=== PATIENT | male | born 1955 | race Caucasian/White ===

== ENCOUNTER 2016-10-19 19:42 | Inpatient (IN) | payer MEDICARE, OTHER ==
[2016-10-19] VITALS (7 sets, daily range): BP systolic 115–139; BP diastolic 58–76; PULSE 48–69; RESP 18; TEMP 99; O2SAT 91–94
[~2016-10-19] VITALS: Ht 175.3 cm; Wt 83.1 kg
[~2016-10-19 19:42] MED LIST: OXYC40TA20 PO
[2016-10-19] MEDS ORDERED: SPIR25TA PO (19:58)
[2016-10-19] MEDS ORDERED: PROP10TA6 PO (19:58)
[2016-10-19] MEDS ORDERED: PROP60CA PO (19:58)
[2016-10-19] MEDS ORDERED: OXYC-406 PO (19:58)
[2016-10-19] MEDS ORDERED: PANTOPRAZOLE SODIUM 40 MG VIAL IVP ONE (20:30)
[2016-10-19] MEDS ORDERED: SODIUM CHLORIDE 0.9% FLUSH 5 ML FLUSH IVF PRN ×2 (20:30→22:00)
[2016-10-19] MEDS ORDERED: ONDANSETRON HCL 4 MG/2 ML VIAL IVP ONE (20:30)
--- NOTE | 2016-10-19 20:34 | PD ---
HPI Chief Complaint: Bleeding Time Seen by Provider: 20:27 Travel History International Travel<30 days: No Contact w/Intl Traveler<30days: No Traveled to known affect area: No History of Present Illness HPI 60-year-old male presents to the emergency department for complaint of blood on his shirt and possibly due to vomiting blood. According the patient he has history of esophageal varices with previous banding. Patient also has history of cirrhosis. Patient continues to smoke cigarettes history of COPD and continues to drink alcohol. Patient states he drank 2 beers today. Patient also has chronic low back pain for which she takes oxycodone. Patient states he 's continued take pain medication as prescribed. Patient states that he was sleeping and awakened with blood on his shirt. Patient denies nosebleed or dental pain or mouth bleeding and does not recall vomiting. Patient has had no hemoptysis. Patient denies coughing. Patient denies shortness of breath. Patient's had no fever chills. Patient states earlier today he was having epigastric abdominal pain that resolved and then noted pain upon awakening with blood on his shirt. Patient denies any black or tarry stools. Patient received significant [place] but has recently moved here permanently and has not yet established with a primary care belly roller. Patient has been seen once by primary care provider but states that he did not tolerate the pain medication that was prescribed for him reportedly. Patient denies any surgical procedures other than previous variceal banding and has had paracentesis for ascites in the remote past. Patient also has history of hypertension. Patient denies history of heart disease and is not diabetic reportedly. Patient's had no near-syncope or syncope dizziness or generalized weakness. Patient rates current discomfort 0/10 in intensity. PFSH Past Medical History Narrative Medical Positive tobacco use positive alcohol use Arthritis chronic low back pain hypertension COPD cirrhosis esophageal varices GI bleed esophageal banding ascites paracentesis EGD tonsillectomy; nursing notes reviewed Arthritis: Yes (LING LOWER EXT) Asthma: No Autoimmune Disease: No Blood Disorders: No Anxiety: No Depression: No Heart Rhythm Problems: No Cancer: No Cardiovascular Problems: Yes (pains) High Cholesterol: No Chemotherapy: No Chest Pain: No Congestive Heart Failure: No Cirrhosis: Yes COPD: Yes Cerebrovascular Accident: No Diabetes: No Diminished Hearing: Yes Endocrine: No Gastrointestinal Disorders: Yes GERD: Yes Glaucoma: No Genitourinary: No Headaches: No Hepatitis: No Hiatal Hernia: No Hypertension: Yes Immune Disorder: No Kidney Stones: No Musculoskeletal: Yes (BACK AND NECK PROBLEMS) Neurologic: No Psychiatric: No Reproductive: No Respiratory: Yes (PT IS A SMOKER) Migraines: No Myocardial Infarction: No Radiation Therapy: No Renal Failure: No Seizures: No Sickle Cell Disease: No Sleep Apnea: No Thyroid Disease: No Ulcer: No Past Surgical History Abdominal Surgery: No AICD: No Appendectomy: No Arteriovenous Shunt: No Cardiac Surgery: No Cholecystectomy: No Ear Surgery: No Endocrine Surgery: No Eye Surgery: No Genitourinary Surgery: No Gynecologic Surgery: No Insulin Pump: No Joint Replacement: No Oral Surgery: No Pacemaker: No Thoracic Surgery: Yes (banding of esophagus 3 years ago) Tonsillectomy: Yes Other Surgery: Yes Social History Alcohol Use: Yes (DAILY 3-4 BEERS) Tobacco Use: Yes (1/2PPD) Substance Use: No Allergies-Medications (Allergen,Severity, Reaction): Coded Allergies: No Known Allergies (Verified , 10/19/16) Reported Meds & Prescriptions Reported Meds & Active Scripts Active Reported Propranolol ER 24 HR (Propranolol HCl) 60 Mg Cap 60 Mg PO DAILY Spironolactone 25 Mg Tab 25 Mg PO DAILY Oxycodone ER (Oxycodone HCl) 40 Mg Tab 40 Mg PO Q12HR Review of Systems Except as stated in HPI: all other systems reviewed are Neg General / Constitutional: No: Fever, Chills Eyes: No: Visual changes HENT: No: Headaches, Vertigo, Lightheadedness Cardiovascular: No: Chest Pain or Discomfort Respiratory: No: Cough, Shortness of Breath, Wheezing, Hemoptysis Gastrointestinal: Positive: Vomiting, Abdominal Pain, Hematemesis, No: Nausea , Hematochezia Genitourinary: No: Dysuria Musculoskeletal: No: Myalgias, Arthralgias Skin: No Rash Neurologic: No: Weakness, Dizziness Psychiatric: No: Anxiety Hematologic/Lymphatic: No: Lymph Node Enlargement Physical Exam Narrative GENERAL: Well developed well nourished male in no acute distress no respiratory distress SKIN: Warm and dry. HEAD: Normocephalic. EYES: No scleral icterus. No injection or drainage. ENT: No dried blood or active bleeding from the nares or in the mouth or posterior pharynx. NECK: Supple, trachea midline. No JVD or lymphadenopathy. CARDIOVASCULAR: Regular rate and rhythm without murmurs, gallops, or rubs. RESPIRATORY: Breath sounds equal bilaterally. No accessory muscle use. GASTROINTESTINAL: Abdomen soft, mild epigastric tenderness to direct palpation without guarding or rebound, nondistended. MUSCULOSKELETAL: No cyanosis, or edema. BACK: Nontender without obvious deformity. No CVA tenderness. Data Data Last Documented VS Vital Signs Date Time Temp Pulse Resp B/P Pulse Ox O2 Delivery O2 Flow Rate FiO2 10/19/16 21:30 58 18 122/64 65 18 118/68 71 18 115/58 10/19/16 21:15 94 Room Air 10/19/16 19:53 99.0 Orders Complete Blood Count With Diff (10/19/16 20:26) Comprehensive Metabolic Panel (10/19/16 20:26) Lipase (10/19/16 20:26) Ammonia (10/19/16 20:26) Prothrombin Time / Inr (Pt) (10/19/16 20:26) Act Partial Throm Time (Ptt) (10/19/16 20:26) Alcohol (Ethanol) (10/19/16 20:26) Urinalysis - C+S If Indicated (10/19/16 20:26) Type And Screen (10/19/16 20:26) Ecg Monitoring (10/19/16 20:26) Iv Access Insert/Monitor (10/19/16 20:26) Orthostatic Vital Signs (10/19/16 20:26) Oximetry (10/19/16 20:26) Ondansetron Inj (Zofran Inj) (10/19/16 20:30) Pantoprazole Inj (Protonix Inj) (10/19/16 20:30) Sodium Chloride 0.9% Flush (Ns Flush) (10/19/16 20:30) Drug Screen, Random Urine (10/19/16 20:26) Chest, Single Ap (10/19/16 ) Lactulose Liq (Lactulose Liq) (10/19/16 22:00) Magnesium (Mg) (10/19/16 20:31) Admit Order (Ed Use Only) (10/19/16 ) ^ Saline Lock (10/19/16 21:54) Resp Oxygen Bob C Titrat 1-4 L (10/19/16 ) ^ Notify Dr: Other (10/19/16 21:54) Sodium Chloride 0.9% Flush (Ns Flush) (10/20/16 09:00) Sodium Chloride 0.9% Flush (Ns Flush) (10/19/16 22:00) Pantoprazole Inj (Protonix Inj) (10/19/16 22:00) Pantoprazole Inj (Protonix Inj) (10/19/16 22:00) Labs Laboratory Tests Test 10/19/16 10/19/16 20:30 20:31 Urine Color STRAW Urine Turbidity CLEAR Urine pH 6.0 Urine Specific [place] 1.005 Urine Protein NEG mg/dL Urine Glucose (UA) NEG mg/dL Urine Ketones NEG mg/dL Urine Occult Blood SMALL Urine Nitrite NEG Urine Bilirubin NEG Urine Leukocyte Esterase NEG Urine RBC 0-3 /hpf Urine Squamous Epithelial 0-2 /hpf Cells Microscopic Urinalysis Comment CULT NOT INDICATED Urine Opiates Screen NEG Urine Barbiturates Screen NEG Urine Amphetamines Screen NEG Urine Benzodiazepines Screen NEG Urine Cocaine Screen NEG Urine Cannabinoids Screen NEG White Blood Count 5.0 TH/MM3 Red Blood Count 4.50 MIL/MM3 Hemoglobin 12.6 GM/DL Hematocrit 38.0 % Mean Corpuscular Volume 84.6 FL Mean Corpuscular Hemoglobin 28.1 PG Mean Corpuscular Hemoglobin 33.3 % Concent Red Cell Distribution Width 17.4 % Platelet Count 81 TH/MM3 Mean Platelet Volume 8.7 FL Neutrophils (%) (Auto) 45.7 % Lymphocytes (%) (Auto) 36.5 % Monocytes (%) (Auto) 14.9 % Eosinophils (%) (Auto) 1.7 % Basophils (%) (Auto) 1.2 % Neutrophils # (Auto) 2.3 TH/MM3 Lymphocytes # (Auto) 1.8 TH/MM3 Monocytes # (Auto) 0.7 TH/MM3 Eosinophils # (Auto) 0.1 TH/MM3 Basophils # (Auto) 0.1 TH/MM3 CBC Comment AUTO DIFF Differential Comment AUTO DIFF CONFIRMED Platelet Estimate LOW Platelet Morphology Comment NORMAL Target Cells 1+ Prothrombin Time 14.1 SEC Prothromb Time International 1.3 RATIO Ratio Activated Partial 31.0 SEC Thromboplast Time Sodium Level 141 MEQ/L Potassium Level 4.1 MEQ/L Chloride Level 106 MEQ/L Carbon Dioxide Level 27.1 MEQ/L Anion Gap 8 MEQ/L Blood Urea Nitrogen 5 MG/DL Creatinine 0.47 MG/DL Estimat Glomerular Filtration 182 ML/MIN Rate Random Glucose 92 MG/DL Calcium Level 9.2 MG/DL Magnesium Level 1.7 MG/DL Total Bilirubin 1.0 MG/DL Aspartate Amino Transf 38 U/L (AST/SGOT) Alanine Aminotransferase 24 U/L (ALT/SGPT) Alkaline Phosphatase 221 U/L Ammonia 114 MCMOL/L Total Protein 7.1 GM/DL Albumin 2.9 GM/DL Lipase 117 U/L Ethyl Alcohol Level 44 MG/DL Blood Type A NEGATIVE Antibody Screen NEGATIVE Blood Bank Comment MDM Medical Decision Making Medical Screen Exam Complete: Yes Emergency Medical Condition: Yes Medical Record Reviewed: Yes Interpretation(s) cbc: hemoglobin 12.6; normal range platelet count cmp: elevated alk phos ammonia: 114, elevated coags: prolonged alcohol: 44 Differential Diagnosis Upper GI bleed/esophageal varices, gastritis, peptic ulcer disease, also to consider epistaxis, coagulopathy, hemoptysis, oral trauma; alcohol ingestion Narrative Course Patient placed on cardiac technician IV access obtained specimens collected and sent for resulting; orthostatic measurements obtained; patient administered Protonix 40 mg IV. No significant blood pressure heart rate deterioration when measured supine to sitting to standing and patient asymptomatic with maneuvers from lying sitting to standing. Patient's hemoglobin is stable rectal exam is negative for blood patient has not been tachycardic although is on a beta cristopher for blood pressure management. Patient is noted to have elevated ammonia and states he has not been on lactulose in the past. Is aware his alcohol level is 44 Patient is aware of plan for admission in view of presenting with blood on clothing without injury and prior history of variceal bleed also elevated serum ammonia Patient is agreeable to stay for admission Procedures EKG Prior to Arrival: No EKG Not Completed: EKG Not Medically Necessary [facility] Point of Care Internal Pos. & Neg. Controls: Passed Fecal Specimen Occult Blood: Negative Physician Communication Physician Communication GI Bleed; h/o esophageal varices discussed with Dr Hearn --requests patient to be transferred as admission to his service to [facility]; discussed with on-call GI Diagnosis Primary Impression: GI bleed Additional Impressions: Esophageal varices in cirrhosis Hyperammonemia Cirrhosis Admitting Information Admitting Physician Requests: Admit Vannesa Golden MD Oct 19, 2016 20:34 Vannesa Golden MD Oct 19, 2016 20:34
[2016-10-19 20:51] LABS: AUTOMATED NEUTROPHIL # 2.3 TH/MM3 (1.8-7.7); BASOPHIL # 0.1 TH/MM3 (0-0.2); BASOPHIL % 1.2 % (0.0-2.0); EOSINOPHIL # 0.1 TH/MM3 (0-0.4); EOSINOPHIL % 1.7 % (0.0-4.0); LYMPH % 36.5 % (9.0-44.0); LYMPHOCYTE # 1.8 TH/MM3 (1.0-4.8); MEAN CELL VOLUME 84.6 FL (80.0-100.0); MEAN CORPUSCULAR HEMOGLOBIN 28.1 PG (27.0-34.0); MEAN CORPUSCULAR HGB CONC 33.3 % (32.0-36.0); MONO % 14.9 % (0.0-8.0); NEUT % 45.7 % (16.0-70.0); PLATELET COUNT 81 TH/MM3 (150-450); RED CELL DISTRIBUTION WIDTH 17.4 % (11.6-17.2)
[2016-10-19 21:01] LABS: AMPHETAMINE, URINE NEG (NEG); BARBITURATES, URINE NEG (NEG); COCAINE, URINE NEG (NEG)
[2016-10-19 21:02] LABS: HEMO FLAGS AUTO DIFF
[2016-10-19 21:03] LABS: CHLORIDE 106 MEQ/L (98-107); POTASSIUM 4.1 MEQ/L (3.5-5.1); SODIUM (NA) 141 MEQ/L (136-145)
[2016-10-19 21:03] LABS: BLOOD, URINE SMALL (NEG); GLUCOSE,URINE NEG (NEG); KETONE, URINE NEG (NEG); NITRITE,URINE NEG (NEG)
[2016-10-19 21:07] LABS: ANION GAP 8 MEQ/L (5-15); BICARBONATE 27.1 MEQ/L (21.0-32.0); BLOOD UREA NITROGEN 5 MG/DL (7-18)
[2016-10-19 21:10] LABS: ALT (GPT) 24 U/L (12-78); AST (GOT) 38 U/L (15-37); GLOMERULAR FILTRATION RATE 182 ML/MIN (>89); INTERNATIONAL NORMALIZED RATIO 1.3 RATIO; PROTHROMBIN TIME - PATIENT 14.1 SEC (9.8-11.6)
[2016-10-19 21:13] LABS: ALKALINE PHOSPHATASE 221 U/L (45-117)
[2016-10-19 21:16] LABS: URINE COLOR STRAW (YELLW/STRAW)
[2016-10-19 21:17] LABS: COMMENT (UR) CULT NOT INDICATED; CULTURE IF INDICATED CULT NOT INDICATED; RBC, URINE 0-3 /hpf (0-3); SQUAMOUS EPITHELIAL CELL URINE 0-2 /hpf (0-5)
[2016-10-19 21:25] LABS: PLATELET ESTIMATE SMEAR LOW (NORMAL); PLATELET MORPHOLOGY NORMAL (NORMAL); SCAN/DIFF AUTO DIFF CONFIRMED; TARGET CELLS 1+ (NORMAL)
[2016-10-19 21:55] LABS: MAGNESIUM 1.7 MG/DL (1.5-2.5)
[2016-10-19] MEDS ORDERED: LACTULOSE SYRUP 20 GM/30 ML CUP PO ONE (22:00)
[2016-10-19] MEDS ORDERED: PANTOPRAZOLE SODIUM 40 MG VIAL IV PUSH ONE (22:00)
--- NOTE | 2016-10-19 22:04 | RADHPO ---
EXAM DATE/TIME: 10/19/2016 21:41 [facility] COMPARISON: CHEST SINGLE AP, December 08, 2015, 19:07. INDICATIONS : Vomiting. Hemoptysis. MEDICAL HISTORY : None. SURGICAL HISTORY : None. ENCOUNTER: Initial ACUITY: 1 day PAIN SCORE: 0/10 LOCATION: Bilateral chest FINDINGS: A single view of the chest demonstrates the lungs to be symmetrically aerated without evidence of mas s, infiltrate or effusion. The cardiomediastinal contours are unremarkable. Osseous structures are intact. CONCLUSION: Negative for an acute process. Rene Duke MD FACR on October 19, 2016 at 22:02 Board Certified Radiologist. This report was verified electronically.
[2016-10-19] MEDS ORDERED: NALOXONE HCL 0.4 MG/ML AMP IV PRN (22:45)
[2016-10-19] MEDS ORDERED: SODIUM CHLORIDE 0.9% FLUSH 5 ML FLUSH FLUSH PRN (22:45)
[2016-10-19] MEDS ORDERED: ONDANSETRON HCL 4 MG/2 ML VIAL IVP PRN (22:45)
[2016-10-19] MEDS: PANTOPRAZOLE INJ 80 MG in SODIUM CHLORIDE 0.9% INJ 100 ML IV SCH (22:51)
[2016-10-19] MEDS ORDERED: oxyCODONE HCL 40 MG CONTROLLED RELEASE TAB PO ONE (23:15)
[2016-10-19] MEDS ORDERED: THIAMINE INJ 100 MG in SODIUM CHLORIDE 0.9% INJ 100 ML IV ONE (23:15)
[2016-10-20] VITALS (10 sets, daily range): BP systolic 103–154; BP diastolic 46–90; PULSE 48–74; RESP 16–18; TEMP 96.5–98.7; O2SAT 91–96
[2016-10-20] MEDS ORDERED: SODIUM CHLORIDE 0.9% FLUSH 5 ML FLUSH IVF SCH (09:00)
[2016-10-20] MEDS: SODIUM CHLORIDE 0.9% FLUSH 5 ML FLUSH FLUSH SCH ×2 (09:20→20:36)
[2016-10-20] MEDS: PANTOPRAZOLE INJ 80 MG in SODIUM CHLORIDE 0.9% INJ 100 ML IV SCH ×2 (09:20→17:28)
[2016-10-20] MEDS: oxyCODONE HCL 40 MG CONTROLLED RELEASE TAB PO SCH ×2 (09:21→20:36)
[2016-10-20] MEDS: SPIRONOLACTONE 25 MG TAB PO SCH (09:21)
[2016-10-20] MEDS: PROPRANOLOL HCL LA 60 MG CAP PO SCH (09:21)
[2016-10-20 11:04] LABS: BASOPHIL % 1.2 % (0.0-2.0); EOSINOPHIL # 0.1 TH/MM3 (0-0.4); EOSINOPHIL % 2.1 % (0.0-4.0); HEMATOCRIT 37.8 % (39.0-51.0); LYMPH % 31.5 % (9.0-44.0); LYMPHOCYTE # 1.3 TH/MM3 (1.0-4.8); MEAN CELL VOLUME 85.4 FL (80.0-100.0); MEAN CORPUSCULAR HEMOGLOBIN 27.6 PG (27.0-34.0); MEAN CORPUSCULAR HGB CONC 32.3 % (32.0-36.0); MONO % 16.3 % (0.0-8.0); NEUT % 48.9 % (16.0-70.0); PLATELET COUNT 75 TH/MM3 (150-450); RED BLOOD COUNT 4.42 MIL/MM3 (4.50-5.90); WHITE BLOOD COUNT 4.1 TH/MM3 (4.0-11.0)
[2016-10-20 11:08] LABS: HEMO FLAGS AUTO DIFF
[2016-10-20 11:32] LABS: ALKALINE PHOSPHATASE 189 U/L (45-117); ALT (GPT) 22 U/L (12-78); ANION GAP 6 MEQ/L (5-15); AST (GOT) 32 U/L (15-37); BICARBONATE 27.9 MEQ/L (21.0-32.0); BLOOD UREA NITROGEN 7 MG/DL (7-18); CHLORIDE 106 MEQ/L (98-107); GLOMERULAR FILTRATION RATE 174 ML/MIN (>89); POTASSIUM 4.3 MEQ/L (3.5-5.1); SODIUM (NA) 140 MEQ/L (136-145); TOTAL BILIRUBIN ADULT 1.3 MG/DL (0.2-1.0)
[2016-10-20 11:36] LABS: PLATELET ESTIMATE SMEAR LOW (NORMAL); PLATELET MORPHOLOGY NORMAL (NORMAL); SCAN/DIFF AUTO DIFF CONFIRMED; TARGET CELLS 1+ (NORMAL)
--- NOTE | 2016-10-20 13:57 | HHI.HP ---
History of Present Illness Primary Care Physician Molina Hearn, DO Admission Diagnosis GI Bleed, h/o esophageal varices; elevated ammonia; alcohol use Diagnoses: History of Present Illness pt woke up with a large blood stain on his sheets he was unable to find any obvious external source he had previously been banded for esophageal varices in [facility] Review of Systems Gastrointestinal: COMPLAINS OF: Abdominal pain Past Family Social History Allergies: Coded Allergies: No Known Allergies (Verified , 10/19/16) Past Medical History esophageal varicies history of previous hemoptysis Past Surgical History varices banding x2 Reported Medications Current Medications Medications (Trade) Dose Ordered Sig/Felix Route PRN Reason Start Time Stop Time Status Last Admin Dose Admin Pantoprazole Sodium/Sodium Chloride (Protonix Inj/NS Inj) 100 ml @ 10 mls/hr Q10H IV 10/19/16 22:00 10/20/16 09:20 Oxycodone HCl (OxyCONTIN CR) 40 mg Q12HR PO 10/20/16 09:00 10/20/16 09:21 Propranolol HCl (Inderal La) 60 mg DAILY PO 10/20/16 09:00 10/20/16 09:21 Spironolactone (Aldactone) 25 mg DAILY PO 10/20/16 09:00 10/20/16 09:21 IV Flush (NS Flush) 2 ml UNSCH PRN FLUSH FLUSH AFTER USING IV ACCESS 10/19/16 22:45 IV Flush (NS Flush) 2 ml BID FLUSH 10/20/16 09:00 10/20/16 09:20 Ondansetron HCl (Zofran Inj) 4 mg Q6H PRN IVP NAUSEA OR VOMITING 10/19/16 22:45 Naloxone HCl (Narcan Inj) 0.4 mg UNSCH PRN IV SEE LABEL COMMENTS 10/19/16 22:45 Active Ordered Medications Current Medications Medications (Trade) Dose Ordered Sig/Felix Route PRN Reason Start Time Stop Time Status Last Admin Dose Admin Pantoprazole Sodium/Sodium Chloride (Protonix Inj/NS Inj) 100 ml @ 10 mls/hr Q10H IV 10/19/16 22:00 10/20/16 09:20 Oxycodone HCl (OxyCONTIN CR) 40 mg Q12HR PO 10/20/16 09:00 10/20/16 09:21 Propranolol HCl (Inderal La) 60 mg DAILY PO 10/20/16 09:00 10/20/16 09:21 Spironolactone (Aldactone) 25 mg DAILY PO 10/20/16 09:00 10/20/16 09:21 IV Flush (NS Flush) 2 ml UNSCH PRN FLUSH FLUSH AFTER USING IV ACCESS 10/19/16 22:45 IV Flush (NS Flush) 2 ml BID FLUSH 10/20/16 09:00 10/20/16 09:20 Ondansetron HCl (Zofran Inj) 4 mg Q6H PRN IVP NAUSEA OR VOMITING 10/19/16 22:45 Naloxone HCl (Narcan Inj) 0.4 mg UNSCH PRN IV SEE LABEL COMMENTS 10/19/16 22:45 Family History father with heart disease mother is alive and well Social History smokes 1 ppd for over 20 years daily drinker Physical Exam Vital Signs GENERAL: SKIN: Warm and dry. HEAD: Atraumatic. Normocephalic. EYES: Pupils equal and round. No scleral icterus. No injection or drainage. ENT: No nasal bleeding or discharge. Mucous membranes pink and moist. NECK: Trachea midline. No JVD. CARDIOVASCULAR: Regular rate and rhythm. RESPIRATORY: No accessory muscle use. Clear to auscultation. Breath sounds equal bilaterally. GASTROINTESTINAL: Abdomen soft, epigastric tenderness present minimally distended. Hepatic and splenic margins not palpable. MUSCULOSKELETAL: Extremities without clubbing, cyanosis, or edema. No obvious deformities. NEUROLOGICAL: Awake and alert. No obvious cranial nerve deficits. Motor grossly within normal limits. Five out of 5 muscle strength in the arms and legs. Normal speech. PSYCHIATRIC: Appropriate mood and affect; insight and judgment normal. Vital Signs Date Time Temp Pulse Resp B/P Pulse Ox O2 Delivery O2 Flow Rate FiO2 10/20/16 12:00 97.3 74 17 136/62 95 10/20/16 09:38 93 Nasal Cannula 4.00 10/20/16 08:00 97.1 56 17 115/46 91 10/20/16 04:01 50 10/20/16 03:15 96.5 62 18 154/75 93 10/20/16 02:00 48 16 114/68 92 Room Air 10/20/16 01:19 16 10/20/16 01:00 52 16 103/59 92 Room Air 10/19/16 23:55 48 18 137/68 91 Room Air 10/19/16 23:25 60 18 133/75 93 Room Air 10/19/16 22:45 93 21 10/19/16 21:30 58 18 122/64 65 18 118/68 71 18 115/58 10/19/16 21:15 56 18 122/68 94 Room Air 10/19/16 20:45 91 10/19/16 19:53 99.0 69 18 139/76 94 Physical Exam GENERAL: This is a well-nourished, well-developed patient, in no apparent distress. SKIN: No rashes, ecchymoses or lesions. Cool and dry. HEAD: Atraumatic. Normocephalic. No temporal or scalp tenderness. EYES: Pupils equal round and reactive. Extraocular motions intact. No scleral icterus. No injection or drainage. ENT: Nose without bleeding, purulent drainage or septal hematoma. Throat without erythema, tonsillar hypertrophy or exudate. Uvula midline. Airway patent. NECK: Trachea midline. No JVD or lymphadenopathy. Supple, nontender, no meningeal signs. CARDIOVASCULAR: Regular rate and rhythm without murmurs, gallops, or rubs. RESPIRATORY: Clear to auscultation. Breath sounds equal bilaterally. No wheezes , rales, or rhonchi. GASTROINTESTINAL: Abdomen soft, non-tender, nondistended. No hepato-splenomegaly , or palpable masses. No guarding. MUSCULOSKELETAL: Extremities without clubbing, cyanosis, or edema. No joint tenderness, effusion, or edema noted. No calf tenderness. Negative Homans sign bilaterally. NEUROLOGICAL: Awake and alert. Cranial nerves II through XII intact. Motor and sensory grossly within normal limits. Five out of 5 muscle strength in all muscle groups. Normal speech. Laboratory Laboratory Tests Test 10/19/16 10/19/16 10/20/16 20:30 20:31 10:52 Urine Color STRAW Urine Turbidity CLEAR Urine pH 6.0 Urine Specific [place] 1.005 Urine Protein NEG Urine Glucose (UA) NEG Urine Ketones NEG Urine Occult Blood SMALL Urine Nitrite NEG Urine Bilirubin NEG Urine Leukocyte Esterase NEG Urine RBC 0-3 Urine Squamous Epithelial 0-2 Cells Microscopic Urinalysis Comment CULT NOT INDICATED Urine Opiates Screen NEG Urine Barbiturates Screen NEG Urine Amphetamines Screen NEG Urine Benzodiazepines Screen NEG Urine Cocaine Screen NEG Urine Cannabinoids Screen NEG White Blood Count 5.0 4.1 Red Blood Count 4.50 4.42 Hemoglobin 12.6 12.2 Hematocrit 38.0 37.8 Mean Corpuscular Volume 84.6 85.4 Mean Corpuscular Hemoglobin 28.1 27.6 Mean Corpuscular Hemoglobin 33.3 32.3 Concent Red Cell Distribution Width 17.4 18.0 Platelet Count 81 75 Mean Platelet Volume 8.7 8.8 Neutrophils (%) (Auto) 45.7 48.9 Lymphocytes (%) (Auto) 36.5 31.5 Monocytes (%) (Auto) 14.9 16.3 Eosinophils (%) (Auto) 1.7 2.1 Basophils (%) (Auto) 1.2 1.2 Neutrophils # (Auto) 2.3 2.0 Lymphocytes # (Auto) 1.8 1.3 Monocytes # (Auto) 0.7 0.7 Eosinophils # (Auto) 0.1 0.1 Basophils # (Auto) 0.1 0.0 CBC Comment AUTO DIFF AUTO DIFF Differential Comment AUTO DIFF AUTO DIFF CONFIRMED CONFIRMED Platelet Estimate LOW LOW Platelet Morphology Comment NORMAL NORMAL Target Cells 1+ 1+ Prothrombin Time 14.1 Prothromb Time International 1.3 Ratio Activated Partial 31.0 Thromboplast Time Sodium Level 141 140 Potassium Level 4.1 4.3 Chloride Level 106 106 Carbon Dioxide Level 27.1 27.9 Anion Gap 8 6 Blood Urea Nitrogen 5 7 Creatinine 0.47 0.49 Estimat Glomerular Filtration 182 174 Rate Random Glucose 92 88 Calcium Level 9.2 9.4 Magnesium Level 1.7 Total Bilirubin 1.0 1.3 Aspartate Amino Transf 38 32 (AST/SGOT) Alanine Aminotransferase 24 22 (ALT/SGPT) Alkaline Phosphatase 221 189 Ammonia 114 Total Protein 7.1 6.4 Albumin 2.9 2.7 Lipase 117 Ethyl Alcohol Level 44 Blood Type A NEGATIVE Antibody Screen NEGATIVE Blood Bank Comment Result Diagram: 10/20/16 1052 10/20/16 1052 Imaging Last Impressions Chest X-Ray 10/19/16 0000 Signed Impressions: Service Date/Time: Wednesday, October 19, 2016 21:41 - CONCLUSION: Negative for an acute process. Rene Duke MD FACR Assessment and Plan Assessment and Plan GI bleed probably upper Esophageal varicies by history with banding x2 hypertension etohism Discharge Planning home after endoscopy Molina Hearn DO Oct 20, 2016 13:57
[2016-10-20 18:14] LABS: BICARBONATE 28.2 MEQ/L (21.0-32.0); POTASSIUM 4.8 MEQ/L (3.5-5.1)
[2016-10-21] VITALS (23 sets, daily range): BP systolic 105–128; BP diastolic 58–70; PULSE 60–89; RESP 12–21; TEMP 96.1–103.3; O2SAT 92–100
[2016-10-21] MEDS: PANTOPRAZOLE INJ 80 MG in SODIUM CHLORIDE 0.9% INJ 100 ML IV SCH ×2 (04:28→14:43)
[2016-10-21 06:16] LABS: AUTOMATED NEUTROPHIL # 5.7 TH/MM3 (1.8-7.7); BASOPHIL # 0.1 TH/MM3 (0-0.2); BASOPHIL % 0.7 % (0.0-2.0); EOSINOPHIL % 0.6 % (0.0-4.0); HEMATOCRIT 37.1 % (39.0-51.0); HEMO FLAGS DIFF FINAL; LYMPH % 15.6 % (9.0-44.0); LYMPHOCYTE # 1.2 TH/MM3 (1.0-4.8); MEAN CELL VOLUME 86.2 FL (80.0-100.0); MEAN CORPUSCULAR HEMOGLOBIN 27.2 PG (27.0-34.0); MEAN CORPUSCULAR HGB CONC 31.5 % (32.0-36.0); MONO % 7.4 % (0.0-8.0); NEUT % 75.7 % (16.0-70.0); PLATELET COUNT 104 TH/MM3 (150-450); RED BLOOD COUNT 4.31 MIL/MM3 (4.50-5.90); RED CELL DISTRIBUTION WIDTH 17.3 % (11.6-17.2); WHITE BLOOD COUNT 7.6 TH/MM3 (4.0-11.0)
[2016-10-21 06:33] LABS: INTERNATIONAL NORMALIZED RATIO 1.4 RATIO; PROTHROMBIN TIME - PATIENT 15.6 SEC (9.8-11.6)
[2016-10-21] MEDS ORDERED: ONDANSETRON INJ 8 MG in DEXTROSE 5% IN WATER INJ 50 ML IV PRN ×2 (07:15)
--- NOTE | 2016-10-21 07:26 | HHI.GIFU ---
GI Follow-up Note Consult Follow-up ASSESSMENT/PLAN: 1. Upper GI bleeding, hematemesis suspect variceal bleeding 2. Acute anemia of blood loss 3. Liver cirrhosis due to Etoh use 4. Coagulopathy 5. Hx of esophageal varices PLAN: 1. Keep NPO 2. Emergent EGD today AM 3. START Octreotide 50 mcg/hr drip 4. Continue Protonix drip 5. START Rocephin 1 mg q 24 hrs 6. Transfuse as needed. It was a pleasure seeing Yves Toledo. Thank you for this consult. Entered by: Mary Jane Estevez MD Oct 21, 2016 07:26
[2016-10-21 07:49] LABS: HEMATOCRIT 38.4 % (39.0-51.0); REVIEW FLAG FINAL
[2016-10-21] MEDS ORDERED: OCTREOTIDE INJ 500 MCG in SODIUM CHLORID 0.9% 500 ML INJ 500 ML IV ONE (08:00)
[2016-10-21] MEDS: cefTRIAXone INJ 1,000 MG in SODIUM CHLORIDE 0.9% INJ 100 ML IV SCH (08:00)
[2016-10-21] MEDS: OCTREOTIDE INJ 500 MCG in SODIUM CHLORID 0.9% 500 ML INJ 500 ML IV SCH ×2 (08:18→17:26)
[2016-10-21] MEDS ORDERED: ATROPINE SULFATE 1 MG/10 ML SYRINGE ONE ×2 (08:34→15:01)
[2016-10-21] MEDS ORDERED: LIDOCAINE HCL 2% 100 MG/5 ML SYRINGE ONE ×2 (08:34→15:01)
[2016-10-21] MEDS ORDERED: EPINEPHrine HCL (1:10,000) 1 MG/10 ML SYRINGE ONE ×2 (08:34→15:00)
[2016-10-21] MEDS ORDERED: MIDAZOLAM HCL 5 MG/ML VIAL (1 ML) ONE (08:36)
[2016-10-21] MEDS ORDERED: ETOMIDATE 20 MG/10 ML VIAL ONE (08:36)
[2016-10-21] MEDS ORDERED: SUCCINYLCHOLINE CHLORIDE 200 MG/10 ML VIAL ONE (08:36)
[2016-10-21] MEDS: PROPRANOLOL HCL LA 60 MG CAP PO SCH (09:00)
[2016-10-21] MEDS: SPIRONOLACTONE 25 MG TAB PO SCH (09:00)
[2016-10-21] MEDS: oxyCODONE HCL 40 MG CONTROLLED RELEASE TAB PO SCH (09:00)
[2016-10-21] MEDS: SODIUM CHLORIDE 0.9% FLUSH 5 ML FLUSH FLUSH SCH ×2 (09:00→21:25)
--- NOTE | 2016-10-21 09:30 | HHI.GIFU ---
GI Follow-up Note Consult Follow-up POST PROCEDURE NOTED ASSESSMENT/PLAN: 1. Gr 1-2 varices no stigmata of bleeding 2. Severe portal HTN diffuse gastropathy - oozing likely the source of bleeding 3. No Du PLAN: 1. Vit K 10 mg x 1 2. Vit K 5 mg daily x 3 days 3. FFP 4. Octreotide drip 5. protonix 8 mg/hr 6. transfuse only as need to keep hb 8-10. It was a pleasure seeing Yves Toledo. Thank you for this consult. Entered by: Mary Jane Estevez MD Oct 21, 2016 09:29
[2016-10-21] MEDS ORDERED: PROPRANOLOL HCL 20 MG TAB PO SCH (09:45)
[2016-10-21 09:52] LABS: BLOOD GAS BASE EXCESS -1.1 mmol/L (-2-2); BLOOD GAS CARBOXYHEMOGLOBIN 1.1 % (0-4); BLOOD GAS HCO3 24 mmol/L (22-26); BLOOD GAS METHEMOGLOBIN 0.8 % (0-2); BLOOD GAS O2 HGB SATURATION 98 % (90-100); BLOOD GAS OXYGEN CONTENT 17.8 Vol % (12.0-20.0); BLOOD GAS PCO2 45 mmHg (38-42); BLOOD GAS PO2 287 mmHg (61-120); BLOOD GAS TOTAL HGB 12.5 G/DL (12.0-16.0); CRITICAL VALUE NO; OXYGEN DEVICE VENTILATOR; TEMP CORR TO 98.6
[2016-10-21 09:53] LABS: DRAW SITE RT RADIAL; FIO2 100 %; NUMBER OF ARTERIAL PUNCTURES 1; STAT NO; ULNAR PULSE PRESENT; VENT SETTINGS PRVC/AC
[2016-10-21] MEDS ORDERED: ETOMIDATE 20 MG/10 ML VIAL IV PUSH ONE (10:00)
[2016-10-21] MEDS ORDERED: MAGNESIUM SULFATE INJ 4 GM in SODIUM CHLORIDE 0.9% INJ 92 ML IV PRN (10:00)
[2016-10-21] MEDS ORDERED: POTASSIUM PHOSPHATE MONOBASIC 500 MG TAB PO PRN (10:00)
[2016-10-21] MEDS ORDERED: POTASSIUM CL 40 MEQ/30 ML LIQ UDC PO/TUBE PRN ×2 (10:00)
[2016-10-21] MEDS ORDERED: MIDAZOLAM HCL 2 MG/2 ML VIAL IVP ONE (10:00)
[2016-10-21] MEDS ORDERED: POTASSIUM PHOSPHATE MONOBASIC 500 MG TAB PO/TUBE PRN (10:00)
[2016-10-21] MEDS ORDERED: POTASSIUM CHLOR 40 MEQ PREMIX 100 ML IV PRN (10:00)
[2016-10-21] MEDS ORDERED: PHYTONADIONE 10 MG/ML VIAL SQ SCH (10:00)
[2016-10-21] MEDS ORDERED: MAGNESIUM SULFATE INJ 2 GM in SODIUM CHLORIDE 0.9% INJ 96 ML IV PRN (10:00)
[2016-10-21] MEDS ORDERED: MAGNESIUM OXIDE 400 MG TAB PO PRN (10:00)
[2016-10-21] MEDS ORDERED: POTASSIUM CHLOR 20 MEQ PREMIX 100 ML IV PRN ×2 (10:00)
[2016-10-21] MEDS ORDERED: PHYTONADIONE 10 MG/ML VIAL SQ ONE (10:10)
--- NOTE | 2016-10-21 10:20 | MB ---
cc: KATARZYNA RODRIGUEZ DATE OF CONSULTATION: 10/21/2016 DATE OF : 1955 REASON FOR CONSULTATION Possible GI bleed. HISTORY OF PRESENT ILLNESS This is a pleasant 60-year-old gentleman who has a longstanding history of liver cirrhosis due to alcohol usage. He has not been following up with a raker buffing wheel regularly. He recently got established with a primary care physician. He came into the emergency room with complaint of waking up one day ago with a small amount of red blood on the pillow which he believes may have been from emesis. He recalls having a history of esophageal varices about 3 years ago in [place] and underwent banding but since then did not have any bleeding episodes, therefore did not follow-up appropriately like it was recommended. He complained of having melanotic stools in one of his bowel movements. An occult blood was negative initially. During the admission the patient had another bout of hematemesis and was transferred up to the intensive care unit. GI was consulted for further work-up and management. PAST MEDICAL HISTORY Liver cirrhosis secondary to alcohol usage. PAST SURGICAL HISTORY Esophageal banding x2 in the past. MEDICATIONS Medications currently: 1. Protonix. 2. Oxycodone. 3. Propranolol. 4. Spironolactone. 5. Zofran. ALLERGIES No known drug allergies. FAMILY HISTORY No GI malignancy. SOCIAL HISTORY Active tobacco usage. Active alcohol usage. REVIEW OF SYSTEMS A 12-point review of systems was obtained, otherwise negative or noncontributory except for what is mentioned in the HPI. PHYSICAL EXAMINATION VITAL SIGNS: Temperature 96.1, heart rate 80, respirations 20, blood pressure 123/68. O2 sat 99% on room air. GENERAL: Alert and oriented, in no acute distress. HEENT: Pupils equal, round and reactive to light. Head normocephalic. Oral mucosa moist. NECK: Supple, nontender. No carotid bruits. LUNGS: Clear to auscultation. Mild bilateral wheezing at the bases. HEART: Normal rate and rhythm. ABDOMEN: Soft, nontender, nondistended. Bowel sounds present in all four quadrants. BACK: No costovertebral angle tenderness noted. LYMPHATIC: No lymphadenopathy note. EXTREMITIES: Normal range of motion. SKIN: Warm, dry, intact. NEUROLOGIC: Alert and oriented. No focal deficit noted. PSYCHIATRIC: Cooperative. Appropriate mood and affect. LABORATORY DATA WBC 7.6, hemoglobin 11.7, MCV 86.2, platelet count 104. Sodium 140, potassium 4.8, chloride 106, bicarb 28.2, BUN 7, creatinine 0.52. Coag 1.4. Alcohol level 44. IMPRESSION 1. Hematemesis with upper GI bleed, suspect secondary to variceal bleeding. 2. History of ETOH abuse and current alcohol usage. 3. Acute anemia blood loss. 4. Coagulopathic secondary to above. 5. History of esophageal varices. RECOMMENDATIONS 1. Keep the patient n.p.o. 2. Emergent EGD this morning. GI lab and Anesthesia are aware. 3. Start octreotide drip at 50 mcg per hour. 4. Continue Protonix drip. 5. Start Rocephin one gram q.24h. 6. Transfuse as needed. 7. Further recommendations to follow depending on results of the above. MD DENAE Crane/LAYLA /7:29 AM /10:02 AM
[2016-10-21] MEDS: PROPOFOL 1000 MG/100 ML INJ 100 ML IV SCH ×4 (11:34→21:45)
[2016-10-21] MEDS ORDERED: SODIUM CHLOR 0.9% 1000 ML INJ 1,000 ML IV ONE (12:15)
[2016-10-21] MEDS: SODIUM CHLOR 0.9% 1000 ML INJ 1,000 ML IV SCH ×2 (12:24→21:25)
--- NOTE | 2016-10-21 12:27 | HHI.PR ---
Subjective Remarks Patient seen after arrival to ICU. Transferred to ICU for hematemesis and history of esophageal varies. He had another episode of vomiting once he arrived on floor. Patient denied and CP. Dr. Cordova at bedside upon arrival and EGD planned. Objective Vital Signs Date Time Temp Pulse Resp B/P Pulse Ox O2 Delivery O2 Flow Rate FiO2 10/21/16 09:30 100 100 10/21/16 06:55 99 Non-Rebreather 15.00 99 10/21/16 06:30 96.1 80 20 123/68 95 10/21/16 03:25 99.7 60 19 127/60 92 10/21/16 01:00 99.1 61 18 128/69 94 10/20/16 21:15 98.7 65 17 131/90 96 10/20/16 20:18 60 10/20/16 16:00 97.8 50 16 136/64 95 I/O 10/20/16 10/20/16 10/20/16 10/21/16 10/21/16 10/21/16 07:00 15:00 23:00 07:00 15:00 23:00 Intake Total 427 ml 480 ml 537 ml 146 ml 120 ml Output Total 450 ml 375 ml Balance -23 ml 480 ml 537 ml -229 ml 120 ml Intake Oral 360 ml 480 ml 360 ml 120 ml IV Total 67 ml 177 ml 146 ml Output Urine Total 450 ml Emesis 375 ml # Voids 1 3 2 3 # Bowel Movements 1 0 0 2 Result Diagram: 10/21/16 0725 10/20/16 1700 Procedures Last 72 hours Impressions Chest X-Ray 10/19/16 0000 Signed Impressions: Service Date/Time: Wednesday, October 19, 2016 21:41 - CONCLUSION: Negative for an acute process. Rene Duke MD FACR Other Results GENERAL: This is a well-developed in moderate distress. SKIN: No rashes, ecchymoses or lesions. Cool and dry. HEAD: Atraumatic. Normocephalic. NECK: Trachea midline. No JVD. Supple and nontender. CARDIOVASCULAR: Regular rate and rhythm without murmurs, gallops, or rubs. RESPIRATORY:. Breath sounds diminished equal bilaterally. No wheezes, rales, or rhonchi. GASTROINTESTINAL: Abdomen soft, non-tender, nondistended. No guarding. MUSCULOSKELETAL: Extremities without cyanosis or edema. . No calf tenderness. Negative Homans sign bilaterally. NEUROLOGICAL: Awake and alert. Normal speech Medications and IVs Current Medications Medications (Trade) Dose Ordered Sig/Felix Route Start Time Stop Time Status Last Admin (Protonix Inj/NS Inj) 100 ml @ 10 mls/hr Q10H IV 10/19/16 22:00 10/21/16 04:28 (Inderal La) 60 mg DAILY PO 10/20/16 09:00 10/20/16 09:21 (Aldactone) 25 mg DAILY PO 10/20/16 09:00 10/21/16 09:00 (NS Flush) 2 ml UNSCH PRN FLUSH 10/19/16 22:45 (NS Flush) 2 ml BID FLUSH 10/20/16 09:00 10/21/16 09:00 Naloxone HCl 0.4 mg 0.4 mg UNSCH PRN IV 10/19/16 22:45 Ondansetron HCl 8 mg/Dextrose 54 ml @ 216 mls/hr Q6H PRN IV 10/21/16 07:15 Ceftriaxone Sodium 1000 mg/ Sodium Chloride 100 ml @ 200 mls/hr Q24H IV 10/21/16 08:00 10/21/16 08:00 Octreotide Acetate 500 mcg/ Sodium Chloride 500.5 ml @ 50 mls/hr Q10H IV 10/21/16 08:00 10/21/16 08:18 (Diprivan 1000 Mg/100ml Inj) 100 ml @ 0 mls/hr TITRATE IV 10/21/16 10:00 10/21/16 11:34 (Inderal) 20 mg Q12HR PO 10/21/16 09:45 10/21/16 11:07 Oxycodone HCl 5 mg 5 mg Q6H PO 10/21/16 10:00 10/21/16 11:07 Potassium Chloride 100 ml @ 50 mls/hr Q2H PRN IV 10/21/16 10:00 (KCl 20 Meq Premix Inj) 100 ml @ 50 mls/hr Q2H PRN IV 10/21/16 10:00 Potassium Chloride 40 meq 40 meq UNSCH PRN PO/TUBE 10/21/16 10:00 Potassium Chloride 100 ml @ 25 mls/hr UNSCH PRN IV 10/21/16 10:00 Potassium Chloride 100 ml @ 50 mls/hr Q2H PRN IV 10/21/16 10:00 (Magnesium Sulfate Inj/NS Inj) 100 ml @ 50 mls/hr UNSCH PRN IV 10/21/16 10:00 Magnesium Oxide 800 mg 800 mg UNSCH PRN PO 10/21/16 10:00 (Magnesium Sulfate Inj/NS Inj) 100 ml @ 50 mls/hr UNSCH PRN IV 10/21/16 10:00 Potassium Phosphate 2000 mg 2,000 mg Q4H PRN PO 10/21/16 10:00 (Sodium Phosphate Inj/NS 250 ml Inj) 250 ml @ 42 mls/hr UNSCH PRN IV 10/21/16 10:00 (KCl 40 Meq/30 ml Liq) 40 meq UNSCH PRN PO/TUBE 10/21/16 10:00 Potassium Phosphate 2000 mg 2,000 mg UNSCH PRN PO/TUBE 10/21/16 10:00 (Potassium Phosphate Inj/NS 250 ml Inj) 260 ml @ 42 mls/hr UNSCH PRN IV 10/21/16 10:00 (Vitamin K Inj) 10 mg ONCE ONCE SQ 10/21/16 10:10 10/23/16 09:01 10/21/16 10:10 Phytonadione 5 mg 5 mg DAILY SQ 10/22/16 09:00 10/24/16 09:01 Sodium Chloride 1,000 ml @ 125 mls/hr Q8H IV 10/21/16 13:00 (NS 1000 ml Inj) 1,000 ml @ 999 mls/hr BOLUS ONCE IV 10/21/16 12:15 10/21/16 13:15 Assessment and Plan Problem List: (1) Hematemesis Status: Acute Plan: GI consulted and following. Patient transferred from floor to ICU today for hematemesis. Patient uses ETOH daily. Has a history of cirrhosis and esophageal banding in the past. His hemoglobin is stable but will need to be checked every 6 hours. Metal Casket Assembler consulted. Plan is for bedside EGD. Vitamin K given. NPO. Sandostatin and protonix gtt. (2) Esophageal varices in cirrhosis Status: Acute Plan: EGD today. (3) Hypertension Status: Chronic Plan: Continue current medication. Blood pressure well controlled. Discussed Condition With Assessment and plan discussed with Dr. Hearn Discharge Planning Plan to discharge home with [facility] Nena Boucher Oct 21, 2016 12:27
[2016-10-21] MEDS: ACETAMINOPHEN 325 MG TAB PO PRN ×2 (12:37→19:31)
[2016-10-21 12:38] LABS: HEMATOCRIT 22.3 % (39.0-51.0)
[2016-10-21] MEDS: ALBUMIN HUMAN 5% 25 GM/500 ML BOTTLE IV SCH (14:00)
[2016-10-21] MEDS: PIPERACIL-TAZO 3.375 GM PREMIX 50 ML IV SCH ×2 (14:43→21:44)
[2016-10-21] MEDS ORDERED: MIDAZOLAM HCL 2 MG/2 ML VIAL IV PUSH PRN (14:45)
[2016-10-21] MEDS ORDERED: VANCOMYCIN INJ 1,000 MG in SODIUM CHLOR 0.9% 250 ML INJ 250 ML IV ONE (15:00)
[2016-10-21] MEDS ORDERED: NOREPINEPHRINE-DEXTROSE DRIP 250 ML IV ONE (15:01)
--- NOTE | 2016-10-21 15:20 | RADRPT ---
EXAM DATE/TIME: 10/21/2016 14:04 [facility] COMPARISON: CHEST SINGLE AP, October 19, 2016, 21:41. INDICATIONS : Eval heart and lungs post central line placement. MEDICAL HISTORY : GI Bleed SURGICAL HISTORY : None. ENCOUNTER: Subsequent ACUITY: 1 week PAIN SCORE: Non-responsive. LOCATION: chest FINDINGS: There is a right central line in place which appears in good position. There is no pneumothorax. Ther e is an NG tube with the tip at the GE junction. The endotracheal tube appears in good position. The left lung is clear. There is a mild infiltrate in the right lung base which there are present some at electasis. No definite pleural effusions. The heart size is stable. CONCLUSION: 1. Right central line in place. No pneumothorax. 2. Right lower lung infiltrate. 3. Tip of NG tube is at the GE junction. Patric Pineda MD on October 21, 2016 at 15:17 Board Certified Radiologist. This report was verified electronically.
--- NOTE | 2016-10-21 17:37 | PD.CONS ---
HPI Service Critical Care Medicine Consult Requested By Primary Care Physician Molina Hearn DO History of Present Illness 60-year-old very pleasant gentleman with a longstanding history of liver cirrhosis due to alcohol usage. He has not been following up with a filler room attendant regularly. He presented into the emergency room with complaint of waking up with a small amount of red blood on the pillow which he believes may have been from emesis. During the admission the patient had another bout of hematemesis and was transferred up to the intensive care unit. I have intubated patient for an airway protection. Review of Systems ROS Unable to obtain, patient is sedated and intubated Past Family Social History Allergies: Coded Allergies: No Known Allergies (Verified , 10/19/16) Past Medical History Liver cirrhosis secondary to alcohol usage. Portal HTN Past Surgical History Esophageal banding x2 in the past. Reported Medications 1. Protonix. 2. Oxycodone. 3. Propranolol. 4. Spironolactone. 5. Zofran. Active Ordered Medications Current Medications Medications (Trade) Dose Ordered Sig/Felix Route PRN Reason Start Time Stop Time Status Last Admin Dose Admin Pantoprazole Sodium/Sodium Chloride (Protonix Inj/NS Inj) 100 ml @ 10 mls/hr Q10H IV 10/19/16 22:00 10/21/16 14:43 Spironolactone (Aldactone) 25 mg DAILY PO 10/20/16 09:00 10/21/16 09:00 IV Flush (NS Flush) 2 ml UNSCH PRN FLUSH FLUSH AFTER USING IV ACCESS 10/19/16 22:45 IV Flush (NS Flush) 2 ml BID FLUSH 10/20/16 09:00 10/21/16 09:00 Naloxone HCl 0.4 mg 0.4 mg UNSCH PRN IV SEE LABEL COMMENTS 10/19/16 22:45 Ondansetron HCl 8 mg/Dextrose 54 ml @ 216 mls/hr Q6H PRN IV NAUSEA 10/21/16 07:15 Ceftriaxone Sodium 1000 mg/ Sodium Chloride 100 ml @ 200 mls/hr Q24H IV 10/21/16 08:00 10/21/16 08:00 Octreotide Acetate 500 mcg/ Sodium Chloride 500.5 ml @ 50 mls/hr Q10H IV 10/21/16 08:00 10/21/16 08:18 Propofol (Diprivan 1000 Mg/100ml Inj) 100 ml @ 0 mls/hr TITRATE IV 10/21/16 10:00 10/21/16 15:17 Oxycodone HCl 5 mg 5 mg Q6H PO 10/21/16 10:00 10/21/16 11:07 Potassium Chloride 100 ml @ 50 mls/hr Q2H PRN IV For Potassium 2.8 - 3.2 mEq/L 10/21/16 10:00 Potassium Chloride (KCl 20 Meq Premix Inj) 100 ml @ 50 mls/hr Q2H PRN IV For Potassium 2.8 - 3.2 mEq/L 10/21/16 10:00 Potassium Chloride 40 meq 40 meq UNSCH PRN PO/TUBE For Potassium 3.3 - 3.5 mEq/L 10/21/16 10:00 Potassium Chloride 100 ml @ 25 mls/hr UNSCH PRN IV For Potassium 3.3 - 3.5 mEq/L 10/21/16 10:00 Potassium Chloride 100 ml @ 50 mls/hr Q2H PRN IV For Potassium 3.3 - 3.5 mEq/L 10/21/16 10:00 Magnesium Sulfate/ Sodium Chloride (Magnesium Sulfate Inj/NS Inj) 100 ml @ 50 mls/hr UNSCH PRN IV For Magnesium 0.9 - 1.1 mg/dL 10/21/16 10:00 Magnesium Oxide 800 mg 800 mg UNSCH PRN PO For Magnesium 1.2 - 1.6 mg/dL 10/21/16 10:00 Magnesium Sulfate/ Sodium Chloride (Magnesium Sulfate Inj/NS Inj) 100 ml @ 50 mls/hr UNSCH PRN IV For Magnesium 1.2 - 1.6 mg/dL 10/21/16 10:00 Potassium Phosphate 2000 mg 2,000 mg Q4H PRN PO For Phosphorus < 2.5 mg/dL 10/21/16 10:00 Sodium Phosphate/ Sodium Chloride (Sodium Phosphate Inj/NS 250 ml Inj) 250 ml @ 42 mls/hr UNSCH PRN IV For Phosphorus < 2.5 mg/dL 10/21/16 10:00 Potassium Chloride (KCl 40 Meq/30 ml Liq) 40 meq UNSCH PRN PO/TUBE SEE LABEL COMMENTS 10/21/16 10:00 Potassium Phosphate 2000 mg 2,000 mg UNSCH PRN PO/TUBE SEE LABEL COMMENTS 10/21/16 10:00 Potassium Phosphate/Sodium Chloride (Potassium Phosphate Inj/NS 250 ml Inj) 260 ml @ 42 mls/hr UNSCH PRN IV SEE LABEL COMMENTS 10/21/16 10:00 Phytonadione (Vitamin K Inj) 10 mg ONCE ONCE SQ 10/21/16 10:10 10/23/16 09:01 10/21/16 10:10 Phytonadione 5 mg 5 mg DAILY SQ 10/22/16 09:00 10/24/16 09:01 Sodium Chloride (NS 1000 ml Inj) 1,000 ml @ 125 mls/hr Q8H IV 10/21/16 13:00 10/21/16 12:24 Acetaminophen (Tylenol) 325 mg Q4H PRN PO INCREASED TEMPERATURE 10/21/16 12:45 10/21/16 12:37 Propranolol HCl (Inderal) 10 mg Q12HR PO 10/21/16 21:00 Albumin Human 25 gm 25 gm Q12H IV 10/21/16 14:00 10/21/16 14:00 Piperacillin Sod/ Tazobactam Sod (Zosyn 3.375 Gm Premix) 50 ml @ 100 mls/hr Q6H IV 10/21/16 16:00 10/21/16 14:43 Midazolam HCl (Versed Inj) 2 mg Q2H PRN IV PUSH AGITATION 10/21/16 14:45 Family History Noncontributory Social History smokes 1 ppd for over 20 years daily drinker Physical Exam Vital Signs Vital Signs Date Time Temp Pulse Resp B/P Pulse Ox O2 Delivery O2 Flow Rate FiO2 10/21/16 16:00 98.2 72 18 107/59 100 10/21/16 16:00 72 10/21/16 16:00 50 10/21/16 14:00 88 10/21/16 12:45 97 50 10/21/16 12:07 16 10/21/16 12:00 87 10/21/16 12:00 50 10/21/16 12:00 102.0 87 20 122/62 97 10/21/16 10:00 88 10/21/16 09:30 100 100 10/21/16 08:43 100 10/21/16 08:00 74 10/21/16 08:00 97.7 74 12 122/70 100 10/21/16 06:55 99 Non-Rebreather 15.00 99 10/21/16 06:30 96.1 80 20 123/68 95 10/21/16 03:25 99.7 60 19 127/60 92 10/21/16 01:00 99.1 61 18 128/69 94 10/20/16 21:15 98.7 65 17 131/90 96 10/20/16 20:18 60 Physical Exam Vital Signs Date Time Temp Pulse Resp B/P Pulse Ox O2 Delivery O2 Flow Rate FiO2 10/21/16 16:00 98.2 72 18 107/59 100 10/21/16 16:00 50 10/21/16 06:55 Non-Rebreather 15.00 GENERAL: Well-nourished, well-developed patient. SKIN: Warm and dry. HEAD: Normocephalic. EYES: No scleral icterus. No injection or drainage. NECK: Supple, trachea midline. No JVD or lymphadenopathy. CARDIOVASCULAR: Regular rate and rhythm without murmurs, gallops, or rubs. RESPIRATORY: Breath sounds equal bilaterally. No accessory muscle use. GASTROINTESTINAL: Abdomen soft, non-tender, nondistended. MUSCULOSKELETAL: No cyanosis, or edema. BACK: Nontender without obvious deformity. No CVA tenderness. Laboratory Laboratory Tests Test 10/21/16 10/21/16 10/21/16 10/21/16 05:21 06:56 07:25 09:30 White Blood Count 7.6 Red Blood Count 4.31 Hemoglobin 11.7 12.6 Hematocrit 37.1 38.4 Mean Corpuscular Volume 86.2 Mean Corpuscular Hemoglobin 27.2 Mean Corpuscular Hemoglobin 31.5 Concent Red Cell Distribution Width 17.3 Platelet Count 104 Mean Platelet Volume 8.6 Neutrophils (%) (Auto) 75.7 Lymphocytes (%) (Auto) 15.6 Monocytes (%) (Auto) 7.4 Eosinophils (%) (Auto) 0.6 Basophils (%) (Auto) 0.7 Neutrophils # (Auto) 5.7 Lymphocytes # (Auto) 1.2 Monocytes # (Auto) 0.6 Eosinophils # (Auto) 0.0 Basophils # (Auto) 0.1 CBC Comment DIFF FINAL Differential Comment Prothrombin Time 15.6 Prothromb Time International 1.4 Ratio Blood Type A NEGATIVE Crossmatch Leukocyte-Reduced Red Blood Cells Blood Bank Comment Blood Gas Puncture Site RT RADIAL Blood Gas Patient Temperature 98.6 Blood Gas HCO3 24 Blood Gas Base Excess -1.1 Blood Gas Oxygen Saturation 98 Arterial Blood pH 7.34 Arterial Blood Partial 45 Pressure CO2 Arterial Blood Partial 287 Pressure O2 Arterial Blood Oxygen Content 17.8 Arterial Blood 1.1 Carboxyhemoglobin Arterial Blood Methemoglobin 0.8 Blood Gas Hemoglobin 12.5 Oxygen Delivery Device VENTILATOR Blood Gas Ventilator Setting PRVC/AC Blood Gas Inspired Oxygen 100 Test 10/21/16 10/21/16 10/21/16 10/21/16 11:24 11:25 12:25 14:34 Blood Type A NEGATIVE Phosphorus Level 2.2 Hemoglobin 7.0 Hematocrit 22.3 Blood Bank Comment Result Diagram: 10/21/16 1225 10/20/16 1700 Imaging Last 24 hours Impressions Chest X-Ray 10/21/16 0000 Signed Impressions: Service Date/Time: Friday, October 21, 2016 14:04 - CONCLUSION: 1. Right central line in place. No pneumothorax. 2. Right lower lung infiltrate. 3. Tip of NG tube is at the GE junction. Patric Pineda MD Septic Shock Reassessment Heart: Regular rate and rhythm Lungs: Clear Skin: Warm Assessment and Plan Problem List: (1) Cirrhosis ICD Code: K74.60 Status: Acute (2) GI bleed ICD Code: K92.2 Status: Acute (3) Hematemesis ICD Code: K92.0 Status: Acute (4) Esophageal varices in cirrhosis ICD Code: K74.60 Status: Acute (5) Respiratory failure ICD Code: J96.90 Status: Acute Assessment and Plan Respiratory failure - intubated for an airway protection - mechanical ventilation - wean if no more hematemesis and hemodynamically stable RLL PNA - broad spectrum ATB - repeat CXR a.m. - follow up cultures Hematemesis - non-variceal per EGD - per GI Liver cirrhosis with portal HTN - supportive care - Protonix - Octreotide - Management per GI Anemia - blood loss - transfuse - keep Hg >7 - vitamin K i.v. DVT/GI prophylaxis - Protonix/TEDs/SCDs Critical Care: The total critical care time was 35 minutes. Time to perform other separately billable procedures was not included in the critical care time. Problem Qualifiers (1) Cirrhosis: (2) GI bleed: Benjamin Hernandez MD Oct 21, 2016 17:37
[2016-10-21 18:03] LABS: HEMATOCRIT 35.9 % (39.0-51.0)
[2016-10-21 18:10] LABS: REVIEW FLAG FINAL
--- NOTE | 2016-10-21 18:58 | RADRPT ---
EXAM DATE/TIME: 10/21/2016 16:13 [facility] COMPARISON: No previous studies available for comparison. INDICATIONS : Rectal bleeding. DOSE: 21 mCi Tc99m Ultratag labeled red blood cells IV IMAGIN hrs MEDICAL HISTORY : Cirrhosis. Esophageal varices, upper gi bleed and ETOH abuse. SURGICAL HISTORY : Esophageal banding. ENCOUNTER: Initial ACUITY: 1 day PAIN SCALE: 0/10 LOCATION: Abdomen. TECHNIQUE: Following the modified in vitro labeling of autologous red cells, dynamic continuous images were acqu ired for the specified interval. FINDINGS: BIODISTRIBUTION: There is a very good labeling of red cells without significant uptake in the gastric wall. There is good delineation of the blood pool of the spleen and abdominal vessels. BLEEDING: There is a central abdominal source of bleeding which peristalsis into the lower abdomen and pelvic c avity within small bowel. I don't see any clear delineation of stomach or colon. CONCLUSION: There is an apparent small bowel source of bleeding. Vito Slaughter MD on October 21, 2016 at 18:53 Board Certified Radiologist. This report was verified electronically.
[2016-10-21] MEDS: PROPRANOLOL HCL 10 MG TAB PO SCH (21:45)
[2016-10-22] VITALS (17 sets, daily range): BP systolic 110–147; BP diastolic 55–67; PULSE 55–73; RESP 16–18; TEMP 99–100.4; O2SAT 99–100
[2016-10-22] LABS: HEMATOCRIT 32.7 % (39.0-51.0)
[2016-10-22 00:01] LABS: REVIEW FLAG FINAL
[2016-10-22] MEDS: PANTOPRAZOLE INJ 80 MG in SODIUM CHLORIDE 0.9% INJ 100 ML IV SCH ×3 (00:24→21:10)
[2016-10-22] MEDS: PROPOFOL 1000 MG/100 ML INJ 100 ML IV SCH ×4 (02:15→23:48)
[2016-10-22] MEDS: PIPERACIL-TAZO 3.375 GM PREMIX 50 ML IV SCH ×4 (03:09→21:16)
[2016-10-22] MEDS: OCTREOTIDE INJ 500 MCG in SODIUM CHLORID 0.9% 500 ML INJ 500 ML IV SCH ×3 (03:10→23:42)
[2016-10-22] MEDS: ALBUMIN HUMAN 5% 25 GM/500 ML BOTTLE IV SCH ×2 (04:05→14:27)
[2016-10-22] MEDS: SODIUM CHLOR 0.9% 1000 ML INJ 1,000 ML IV SCH ×3 (04:07→21:11)
[2016-10-22 05:07] LABS: BLOOD GAS BASE EXCESS -1.6 mmol/L (-2-2); BLOOD GAS CARBOXYHEMOGLOBIN 1.4 % (0-4); BLOOD GAS HCO3 22 mmol/L (22-26); BLOOD GAS METHEMOGLOBIN 0.7 % (0-2); BLOOD GAS O2 HGB SATURATION 96 % (90-100); BLOOD GAS OXYGEN CONTENT 13.9 Vol % (12.0-20.0); BLOOD GAS PCO2 35 mmHg (38-42); BLOOD GAS PO2 96 mmHg (61-120); BLOOD GAS TOTAL HGB 10.3 G/DL (12.0-16.0); CRITICAL VALUE NO; DRAW SITE RT BRACHIAL; FIO2 40 %; NUMBER OF ARTERIAL PUNCTURES 1; OXYGEN DEVICE VENTILATOR; STAT NO; TEMP CORR TO 98.6; VENT SETTINGS PRVC/AC
[2016-10-22 05:44] LABS: HEMATOCRIT 30.3 % (39.0-51.0); MEAN CELL VOLUME 84.5 FL (80.0-100.0); MEAN CORPUSCULAR HEMOGLOBIN 27.6 PG (27.0-34.0); MEAN CORPUSCULAR HGB CONC 32.7 % (32.0-36.0); PLATELET COUNT 51 TH/MM3 (150-450); RED BLOOD COUNT 3.59 MIL/MM3 (4.50-5.90); RED CELL DISTRIBUTION WIDTH 17.2 % (11.6-17.2); WHITE BLOOD COUNT 2.9 TH/MM3 (4.0-11.0)
[2016-10-22 05:47] LABS: INTERNATIONAL NORMALIZED RATIO 1.4 RATIO; PROTHROMBIN TIME - PATIENT 15.6 SEC (9.8-11.6)
[2016-10-22 05:56] LABS: HEMO FLAGS AUTO DIFF
[2016-10-22 06:02] LABS: ALKALINE PHOSPHATASE 87 U/L (45-117); ALT (GPT) 13 U/L (12-78); ANION GAP 9 MEQ/L (5-15); AST (GOT) 18 U/L (15-37); BICARBONATE 24.4 MEQ/L (21.0-32.0); BLOOD UREA NITROGEN 11 MG/DL (7-18); CHLORIDE 110 MEQ/L (98-107); GLOMERULAR FILTRATION RATE 155 ML/MIN (>89); MAGNESIUM 1.4 MG/DL (1.5-2.5); POTASSIUM 3.4 MEQ/L (3.5-5.1); SODIUM (NA) 143 MEQ/L (136-145); TOTAL BILIRUBIN ADULT 1.9 MG/DL (0.2-1.0)
--- NOTE | 2016-10-22 06:17 | RADRPT ---
EXAM DATE/TIME: 10/22/2016 05:39 [facility] COMPARISON: CHEST SINGLE AP, October 21, 2016, 14:04. INDICATIONS : Short of breath, respiratory failure MEDICAL HISTORY : GI bleed SURGICAL HISTORY : None. ENCOUNTER: Subsequent ACUITY: 1 week PAIN SCORE: Non-responsive. LOCATION: Bilateral chest FINDINGS: Endotracheal tube nasogastric tube and right neck central line are stable. Right base infiltrate and effusion are grossly unchanged. There is developing parenchymal opacity at the left base. Cardiac con tours are grossly stable. CONCLUSION: Slight interval worsening in aeration. Vito Lara MD on October 22, 2016 at 6:15 Board Certified Radiologist. This report was verified electronically.
[2016-10-22] MEDS ORDERED: DIATRIZOATE MEGLUM/DIATRIZOATE SOD 9 ML CUP PO ONE (07:00)
--- NOTE | 2016-10-22 07:46 | HHI.PR ---
Subjective Remarks Patient seen at bedside. He has been intubated for airway protection. His blood pressure is stable. 2 units of PRBCs and FFP given. Bleeding scan positive for small bowel region. CT of abdomen and pelvis for today. Objective Vital Signs Date Time Temp Pulse Resp B/P Pulse Ox O2 Delivery O2 Flow Rate FiO2 10/22/16 06:00 55 10/22/16 04:00 100.4 55 17 112/55 99 10/22/16 04:00 40 10/22/16 04:00 55 10/22/16 03:54 99 40 10/22/16 02:00 56 10/22/16 00:59 100 40 10/22/16 00:00 100.0 55 16 110/58 100 10/22/16 00:00 40 10/22/16 00:00 55 10/21/16 22:29 99 40 10/21/16 21:15 101.8 10/21/16 20:30 101.8 10/21/16 20:15 101.8 10/21/16 20:11 99 40 10/21/16 20:05 101.8 10/21/16 20:00 62 10/21/16 20:00 50 10/21/16 20:00 101.8 62 19 113/58 99 10/21/16 19:50 102.0 10/21/16 19:35 102.0 10/21/16 18:49 100 100 10/21/16 16:00 98.2 72 18 107/59 100 10/21/16 16:00 72 10/21/16 16:00 50 10/21/16 14:20 100.9 85 20 120/66 98 10/21/16 14:00 88 10/21/16 13:19 103.3 89 21 105/61 99 10/21/16 12:45 97 50 10/21/16 12:07 16 10/21/16 12:00 87 10/21/16 12:00 50 10/21/16 12:00 102.0 87 20 122/62 97 10/21/16 10:00 88 10/21/16 09:30 100 100 10/21/16 08:43 100 10/21/16 08:00 74 10/21/16 08:00 97.7 74 12 122/70 100 I/O 1/1610/21/16 10/21/16 10/22/16 10/22/16 10/22/16 07:00 15:00 23:00 07:00 15:00 23:00 Intake Total 146 ml 2570 ml 2388 ml 1914 ml Output Total 375 ml 1150 ml 750 ml 400 ml Balance -229 ml 1420 ml 1638 ml 1514 ml Intake Oral 120 ml IV Total 146 ml 1700 ml 1712 ml 1414 ml Albumin 500 ml 500 ml Packed Cells 250 ml FFP 676 ml Output Urine Total 225 ml 300 ml 250 ml Stool Total 800 ml 450 ml 150 ml Emesis 375 ml 125 ml # Voids 3 # Bowel Movements 4 Result Diagram: 10/22/16 0525 10/22/16 0525 Imaging Last 72 hours Impressions Chest X-Ray 10/22/16 0600 Signed Impressions: Service Date/Time: Saturday, October 22, 2016 05:39 - CONCLUSION: Slight interval worsening in aeration. Vito Lara MD GI Bleed Scan Nuclear Medicine 10/21/16 0000 Signed Impressions: Service Date/Time: Friday, October 21, 2016 16:13 - CONCLUSION: There is an apparent small bowel source of bleeding. Vito Slaughter MD Chest X-Ray 10/21/16 0000 Signed Impressions: Service Date/Time: Friday, October 21, 2016 14:04 - CONCLUSION: 1. Right central line in place. No pneumothorax. 2. Right lower lung infiltrate. 3. Tip of NG tube is at the GE junction. Patric Pineda MD Procedures Last 72 hours Impressions Chest X-Ray 10/19/16 0000 Signed Impressions: Service Date/Time: Wednesday, October 19, 2016 21:41 - CONCLUSION: Negative for an acute process. Rene Duke MD FACR Objective Remarks GENERAL: This is a well-developed male on ventilator SKIN: No rashes, ecchymoses or lesions. Cool and dry. HEAD: Atraumatic. Normocephalic. NECK: Trachea midline. No JVD. Supple and nontender. CARDIOVASCULAR: Regular rate and rhythm without murmurs, gallops, or rubs. RESPIRATORY:. Breath sounds diminished equal bilaterally. No wheezes, rales, or rhonchi. GASTROINTESTINAL: Abdomen soft, non-tender, nondistended. No guarding. MUSCULOSKELETAL: Extremities without cyanosis or edema. . No calf tenderness. Negative Homans sign bilaterally. NEUROLOGICAL: Sedated Medications and IVs Current Medications Medications (Trade) Dose Ordered Sig/Felix Route Start Time Stop Time Status Last Admin (Protonix Inj/NS Inj) 100 ml @ 10 mls/hr Q10H IV 10/19/16 22:00 10/22/16 08:49 (Aldactone) 25 mg DAILY PO 10/20/16 09:00 10/22/16 08:48 (NS Flush) 2 ml UNSCH PRN FLUSH 10/19/16 22:45 (NS Flush) 2 ml BID FLUSH 10/20/16 09:00 10/22/16 08:49 Naloxone HCl 0.4 mg 0.4 mg UNSCH PRN IV 10/19/16 22:45 Ondansetron HCl 8 mg/Dextrose 54 ml @ 216 mls/hr Q6H PRN IV 10/21/16 07:15 Ceftriaxone Sodium 1000 mg/ Sodium Chloride 100 ml @ 200 mls/hr Q24H IV 10/21/16 08:00 10/22/16 08:05 Octreotide Acetate 500 mcg/ Sodium Chloride 500.5 ml @ 50 mls/hr Q10H IV 10/21/16 08:00 10/22/16 03:10 (Diprivan 1000 Mg/100ml Inj) 100 ml @ 0 mls/hr TITRATE IV 10/21/16 10:00 10/22/16 11:42 Oxycodone HCl 5 mg 5 mg Q6H PO 10/21/16 10:00 10/22/16 08:48 Potassium Chloride 100 ml @ 50 mls/hr Q2H PRN IV 10/21/16 10:00 (KCl 20 Meq Premix Inj) 100 ml @ 50 mls/hr Q2H PRN IV 10/21/16 10:00 Potassium Chloride 40 meq 40 meq UNSCH PRN PO/TUBE 10/21/16 10:00 Potassium Chloride 100 ml @ 25 mls/hr UNSCH PRN IV 10/21/16 10:00 10/22/16 11:42 Potassium Chloride 100 ml @ 50 mls/hr Q2H PRN IV 10/21/16 10:00 (Magnesium Sulfate Inj/NS Inj) 100 ml @ 50 mls/hr UNSCH PRN IV 10/21/16 10:00 Magnesium Oxide 800 mg 800 mg UNSCH PRN PO 10/21/16 10:00 (Magnesium Sulfate Inj/NS Inj) 100 ml @ 50 mls/hr UNSCH PRN IV 10/21/16 10:00 10/22/16 07:52 Potassium Phosphate 2000 mg 2,000 mg Q4H PRN PO 10/21/16 10:00 (Sodium Phosphate Inj/NS 250 ml Inj) 250 ml @ 42 mls/hr UNSCH PRN IV 10/21/16 10:00 10/22/16 07:52 (KCl 40 Meq/30 ml Liq) 40 meq UNSCH PRN PO/TUBE 10/21/16 10:00 Potassium Phosphate 2000 mg 2,000 mg UNSCH PRN PO/TUBE 10/21/16 10:00 (Potassium Phosphate Inj/NS 250 ml Inj) 260 ml @ 42 mls/hr UNSCH PRN IV 10/21/16 10:00 (Vitamin K Inj) 10 mg ONCE ONCE SQ 10/21/16 10:10 10/23/16 09:01 10/21/16 10:10 Phytonadione 5 mg 5 mg DAILY SQ 10/22/16 09:00 10/24/16 09:01 10/22/16 08:49 (NS 1000 ml Inj) 1,000 ml @ 125 mls/hr Q8H IV 10/21/16 13:00 10/22/16 04:07 (Tylenol) 325 mg Q4H PRN PO 10/21/16 12:45 10/21/16 19:31 (Inderal) 10 mg Q12HR PO 10/21/16 21:00 10/22/16 08:49 Albumin Human 25 gm 25 gm Q12H IV 10/21/16 14:00 10/22/16 04:05 (Zosyn 3.375 Gm Premix) 50 ml @ 100 mls/hr Q6H IV 10/21/16 16:00 10/22/16 10:14 (Versed Inj) 2 mg Q2H PRN IV PUSH 10/21/16 14:45 Assessment and Plan Problem List: (1) Hematemesis Status: Acute Plan: On Sandostatin and protonix gtt. Reported per nursing another episode of hematemesis. EGD done yesterday. Bleeding scan positive for small bowel. Surgery consulted. CT of abdomen and pelvis ordered. Patient is intubated for airway protection. (2) Esophageal varices in cirrhosis Status: Acute Plan: EGD done yesterday. Awaiting report. Per nursing no banding needed. (3) Respiratory failure Status: Acute Plan: Intubated for airway protection. Security Professional managing. (4) Electrolyte abnormality Status: Acute Plan: Magnesium and potassium low. On replacement protocols. (5) Hypertension Status: Chronic Plan: Continue current medication. Blood pressure well controlled. Discussed Condition With Assessment and plan discussed per Dr. Hearn Discharge Planning Plan to discharge to Rehab Nena Boucher Oct 22, 2016 07:46
[2016-10-22] MEDS: SODIUM PHOSPHATE INJ 30 MMOL in SODIUM CHLOR 0.9% 250 ML INJ 240 ML IV PRN ×2 (07:52→23:05)
[2016-10-22] MEDS: cefTRIAXone INJ 1,000 MG in SODIUM CHLORIDE 0.9% INJ 100 ML IV SCH (08:05)
--- NOTE | 2016-10-22 08:43 | MB ---
cc: ALISHA MICHAEL MD DATE OF CONSULTATION: 10/21/2016 REASON FOR CONSULTATION GI bleed, varices, respiratory failure, portal hypertension. HISTORY OF PRESENT DISEASE This 60-year-old male was admitted to the hospital and during this admission suffered a bout of hematemesis with dark blood. However, since then the patient passed some dark blood per rectum and question arises about the source of bleeding as well as any surgical therapy needed. The patient is now in the ICU for further care. He appears to be hemodynamically stable. PAST MEDICAL HISTORY 1. Hepatic cirrhosis secondary to alcoholism. 2. Known portal hypertension. 3. Variceal bleeding in the past for which he underwent banding about 3 years ago. PAST SURGICAL HISTORY Variceal banding. MEDICATIONS 1. Protonix. 2. Propranolol. 3. Zofran. ALLERGIES No allergies. SOCIAL HISTORY The patient is an alcoholic and active smoker, never stopped drinking or smoking. The patient is now ventilated so the rest of the history cannot be obtained. PHYSICAL EXAMINATION GENERAL: A 60-year-old male in no acute distress on the ventilator. HEENT: Normocephalic. No trauma to the head. Pupils appear to be equal, poorly reactive. Extraocular muscles cannot be tested. CHEST: Bilateral breath sounds. HEART: Regular rhythm. The patient is fully ventilatory supported. ABDOMEN: Soft, nondistended. Active bowel sounds. No rebound or guarding. No masses. Liver is enlarged about 2 inches below the costal margin in the midclavicular line. EXTREMITIES: Grossly within normal limits with some muscle atrophy but no neurovascular deficit. BACK: Normal. IMPRESSION/RECOMMENDATIONS I reviewed the laboratory and diagnostic procedures. The gentleman has an GI bleed. He underwent upper endoscopy which was apparently negative so the bleed may not be from a variceal source. While patients with cirrhosis can bleed from varices they bleed from other sites as well just like anybody else. AV malformations are slightly more common in these patients and so is bleeding from rectal hemorrhoids; however, in this case this is coming from higher up. It would not be unusual for the patient to have a third or fourth portion duodenum ulcer or some other source of distal bleeding. At this point the patient is manage conservatively. He received 2 units of blood and his hemoglobin is now 7. He is going to be getting 2 more units. Hemodynamically he remains relatively stable. Every effort should be made not to have to operate on this patient. I agree with a bleeding scan. If the bleeding scan reveals a source of bleeding it would be certainly helpful should patient require surgery. I do not believe that this is bleeding from the colon, but rather probably from a higher portion of GI tract. Few patients with bleeding from the right colon might present with stool looking this why, however, usually it is from the duodenum or small bowel. I will continue to follow the patient with you. Thank you much for the referral. Critical care: 40 minutes. Alisha HAYDEN /5:34 PM /8:32 AM
[2016-10-22] MEDS: SPIRONOLACTONE 25 MG TAB PO SCH (08:48)
[2016-10-22] MEDS: PROPRANOLOL HCL 10 MG TAB PO SCH (08:49)
[2016-10-22] MEDS: SODIUM CHLORIDE 0.9% FLUSH 5 ML FLUSH FLUSH SCH ×2 (08:49→21:00)
[2016-10-22] MEDS: PHYTONADIONE 10 MG/ML VIAL SQ SCH (08:49)
[2016-10-22 09:01] LABS: BANDS 18 % (0-6); EOSINOPHILS 3 % (0-4); NEUTROPHIL # MANUAL DIFF 2.3 TH/MM3 (1.8-7.7); POLYS (SEG NEUTROPHILS) 61 % (16-70); WBC DIFF SAMPLE 100
[2016-10-22 09:03] LABS: PLATELET ESTIMATE SMEAR LOW (NORMAL); PLATELET MORPHOLOGY NORMAL (NORMAL); SCAN/DIFF FINAL DIFF MANUAL
[2016-10-22] MEDS ORDERED: ATROPINE SULFATE 1 MG/10 ML SYRINGE ONE (10:06)
[2016-10-22] MEDS ORDERED: EPINEPHrine HCL (1:10,000) 1 MG/10 ML SYRINGE ONE (10:06)
[2016-10-22] MEDS ORDERED: IOHEXOL 350 MG/ML 10 ML VIAL (for RAD DIAG) IV ONE (11:03)
--- NOTE | 2016-10-22 12:14 | RADRPT ---
EXAM DATE/TIME: 10/22/2016 10:54 [facility] COMPARISON: No previous studies available for comparison. INDICATIONS: Bleeding from mouth and rectum. GI bleed. IV CONTRAST: 91 cc Omnipaque 350 (iohexol) IV ORAL CONTRAST: Prescribed oral contrast ingested. RADIATION DOSE: 10.04 CTDIvol (mGy) MEDICAL HISTORY: Cardiovascular disease. Hypertension. Cirrhosis SURGICAL HISTORY: None. ENCOUNTER: Initial ACUITY: 1 day PAIN SCALE: Non-responsive LOCATION: Bilateral abdomen TECHNIQUE: Volumetric scanning of the abdomen and pelvis was performed. Using automated exposure control and ad justment of the mA and/or kV according to patient size, radiation dose was kept as low as reasonably achievable to obtain optimal diagnostic quality images. FINDINGS: The patient has a cirrhotic appearance to the liver with a nodular surface. There is atrophy of the right lobe and hypertrophy of the left lobe. There do appear to be varices around the distal esophag us in the upper abdomen. There is a mild amount of ascites seen in the peritoneal cavity especially in the right pericolic gutter and perihepatic regions. The spleen is mildly enlarged measuring 13.4 cm in length. No focal hepatic or splenic lesions are seen. The pancreas and adrenal glands appear normal. Both kidneys demonstrate normal enhancement. There is some atherosclerotic calcifications s een throughout the arterial system. No aneurysm is seen. There is a Marques catheter in the bladder. There is some mild thickening of the distal sigmoid colon. Some of this may be secondary to lack of distention. Significant inflammatory change around the sigmoid colon is not seen. There is a minimal right pleural effusion. There is accompanying increased density in the right lowe r lung representing some consolidation or atelectasis. There is some lesser degree of similar change s at the left base. There is some mild degenerative change in the lumbar spine. CONCLUSION: 1. Cirrhotic liver with varices especially around the distal esophagus. 2. Splenomegaly. This is likely related to the portal hypertension. 3. Mild amount of ascites in the right pericolic gutter region likely from the hepatic disease. 4. Increased density at the bases representing some degree of atelectasis or consolidation being wor se on the right. There is also a minimal right pleural effusion. 5. Marques catheter in place. 6. Mild thickening of the distal sigmoid colon. This is nonspecific. This could be secondary to la ck of distention. Significant surrounding inflammatory change is not seen. Vito Up MD on October 22, 2016 at 11:42 Board Certified Radiologist. This report was verified electronically.
--- NOTE | 2016-10-22 13:21 | HHI.CCPN ---
Subjective Brief History Patient admitted with lower GI bleeding underwent upper endoscopy which was negative Medical history is that of cirrhosis, portal hypertension with previous variceal bleed and band ligation few years ago Hyperammonemia and stigmata of renal failure child's 3 classification. As noted in my consultation this was clearly not an upper GI bleed but this was the not typical for a lower GI bleed either. The nuclear scan reveals bleeding from small bowel which could be an AV malformation brought on by portal hypertension but also possibly Meckel's bleed Either way bleeding has stopped at this point and hopefully will not recur Completely agree with octreotide and other measures administered Will give 2 units FFP Every effort should be made not to have to operate on the patient considering that there is a very high surgical risk in face of portal hypertension and any abdominal surgery including intestinal will be associated with higher blood loss considering that patient has arterialized high-pressure venous system Would wean to extubate at this time Objective Vital Signs Date Time Temp Pulse Resp B/P Pulse Ox O2 Delivery O2 Flow Rate FiO2 10/22/16 12:26 100 40 10/22/16 06:00 55 10/22/16 04:00 100.4 17 112/55 10/21/16 06:55 Non-Rebreather 15.00 Intake and Output 10/21/16 10/21/16 10/22/16 08:00 16:00 00:00 Intake Total 266 ml 2450 ml 2388 ml Output Total 375 ml 1150 ml 750 ml Balance -109 ml 1300 ml 1638 ml Result Diagram: 10/22/16 0525 10/22/16 0525 Other Results Laboratory Tests Test 10/22/16 04:30 Blood Gas Puncture Site RT BRACHIAL Blood Gas Patient Temperature 98.6 Blood Gas HCO3 22 mmol/L (22-26) Blood Gas Base Excess -1.6 mmol/L (-2-2) Blood Gas Oxygen Saturation 96 % (90-100) Arterial Blood pH 7.42 (7.380-7.420) Arterial Blood Partial 35 mmHg (38-42) Pressure CO2 Arterial Blood Partial 96 mmHg Pressure O2 (61-120) Arterial Blood Oxygen Content 13.9 Vol % (12.0-20.0) Arterial Blood 1.4 % (0-4) Carboxyhemoglobin Arterial Blood Methemoglobin 0.7 % (0-2) Blood Gas Hemoglobin 10.3 G/DL (12.0-16.0) Oxygen Delivery Device VENTILATOR Blood Gas Ventilator Setting PRVC/AC Blood Gas Inspired Oxygen 40 % Imaging Last 24 hours Impressions Chest X-Ray 10/22/16 0600 Signed Impressions: Service Date/Time: Saturday, October 22, 2016 05:39 - CONCLUSION: Slight interval worsening in aeration. Vito Lara MD Assessment and Plan Attestation The exam, history, and the medical decision-making described in the above note were completed with the assistance of the mid-level provider. I reviewed and agree with the findings presented. I attest that I had a [id number] encounter with the patient on the same day, and personally performed and documented my assessment and findings in the medical record. Critical care time 40 minutes. Alisha Gregory MD Oct 22, 2016 13:21
--- NOTE | 2016-10-22 15:07 | HHI.CCPN ---
Subjective Remarks/Hospital Course 60-year-old very pleasant gentleman with a longstanding history of liver cirrhosis due to alcohol usage. He presented into the emergency room with complaint of waking up with hematemesis and was transferred up to the intensive care unit; intubated patient for an airway protection. Bleeding scan with mid small bowel blood pooling. Continued old blood coming from upper GI tract. 10/23: No new bleeding. Extubated today with acceptable gas exchange. Secretions from RLL pneumonia may necessitate reintubation. Objective Vital Signs Date Time Temp Pulse Resp B/P Pulse Ox O2 Delivery O2 Flow Rate FiO2 10/22/16 12:26 100 40 10/22/16 06:00 55 10/22/16 04:00 100.4 17 112/55 10/21/16 06:55 Non-Rebreather 15.00 Intake and Output 10/21/16 10/21/16 10/22/16 08:00 16:00 00:00 Intake Total 266 ml 2450 ml 2388 ml Output Total 375 ml 1150 ml 750 ml Balance -109 ml 1300 ml 1638 ml Result Diagram: 10/22/16 0525 10/22/16 0525 Other Results Laboratory Tests Test 10/22/16 04:30 Blood Gas Puncture Site RT BRACHIAL Blood Gas Patient Temperature 98.6 Blood Gas HCO3 22 mmol/L (22-26) Blood Gas Base Excess -1.6 mmol/L (-2-2) Blood Gas Oxygen Saturation 96 % (90-100) Arterial Blood pH 7.42 (7.380-7.420) Arterial Blood Partial 35 mmHg (38-42) Pressure CO2 Arterial Blood Partial 96 mmHg Pressure O2 (61-120) Arterial Blood Oxygen Content 13.9 Vol % (12.0-20.0) Arterial Blood 1.4 % (0-4) Carboxyhemoglobin Arterial Blood Methemoglobin 0.7 % (0-2) Blood Gas Hemoglobin 10.3 G/DL (12.0-16.0) Oxygen Delivery Device VENTILATOR Blood Gas Ventilator Setting PRVC/AC Blood Gas Inspired Oxygen 40 % Imaging Last 24 hours Impressions Chest X-Ray 10/21/16 0000 Signed Impressions: Service Date/Time: Friday, October 21, 2016 14:04 - CONCLUSION: 1. Right central line in place. No pneumothorax. 2. Right lower lung infiltrate. 3. Tip of NG tube is at the GE junction. Patric Pineda MD Objective Remarks Vital Signs P 54, BP 130/69, R 17 GENERAL: Ill-appearing SKIN: Warm and dry. HEAD: Normocephalic. NECK: Supple, orally intubated. CARDIOVASCULAR: Regular rate and rhythm. No JVD. RESPIRATORY: Scattered rhonchi, persistent cough. Mild tachypnea. GASTROINTESTINAL: Abdomen soft, non-tender, nondistended. BS active. MUSCULOSKELETAL: No cyanosis, or edema. Warm, well perfused. NEURO: Exhausted, conversant, confused. Moves 4 limbs. A/P Problem List: (1) Respiratory failure ICD Code: J96.90 Status: Acute (2) GI bleed ICD Code: K92.2 Status: Acute (3) Cirrhosis ICD Code: K74.60 Status: Acute (4) Hematemesis ICD Code: K92.0 Status: Acute (5) Esophageal varices in cirrhosis ICD Code: K74.60 Status: Acute Assessment and Plan Respiratory failure - extubated 10/23 RLL PNA - broad spectrum ATB - follow up cultures Hematemesis - non-variceal per EGD - per GI - Tag Scan, bleeding in small bowel. Liver cirrhosis with portal HTN - supportive care - Management per GI Anemia - keep Hg >7 -Transfused two units so far DVT/GI prophylaxis - Protonix/TEDs/SCDs Overall impression: Critically ill man with alcoholic cirrhosis and upper GI hemorrhage. No further bleeding, still appears quite ill. Problem Qualifiers (1) GI bleed: Qualified Code: K92.2 - Gastrointestinal hemorrhage, unspecified gastrointestinal hemorrhage type (2) Cirrhosis: Dontrell Bernal MD Oct 22, 2016 15:07 Dontrell Bernal MD Oct 22, 2016 15:07
--- NOTE | 2016-10-22 16:30 | HHI.GIFU ---
Subjective Remarks Pt remains intubated, nursing staff reports some bright red blood in oral cavity and some coming from NG tube when suctioned. Small amount of melena from rectal tube. Objective Vitals I&O Vital Signs Date Time Temp Pulse Resp B/P Pulse Ox O2 Delivery O2 Flow Rate FiO2 10/22/16 12:26 100 40 10/22/16 10:59 100 60 10/22/16 09:00 100 40 10/22/16 06:00 55 10/22/16 04:00 100.4 55 17 112/55 99 10/22/16 04:00 40 10/22/16 04:00 55 10/22/16 03:54 99 40 10/22/16 02:00 56 10/22/16 00:59 100 40 10/22/16 00:00 100.0 55 16 110/58 100 10/22/16 00:00 40 10/22/16 00:00 55 10/21/16 22:29 99 40 10/21/16 21:15 101.8 10/21/16 20:30 101.8 10/21/16 20:15 101.8 10/21/16 20:11 99 40 10/21/16 20:05 101.8 10/21/16 20:00 62 10/21/16 20:00 50 10/21/16 20:00 101.8 62 19 113/58 99 10/21/16 19:50 102.0 10/21/16 19:35 102.0 10/21/16 18:49 100 100 I/O 10/21/16 10/21/16 10/21/16 10/22/16 10/22/16 10/22/16 07:00 15:00 23:00 07:00 15:00 23:00 Intake Total 146 ml 2570 ml 2388 ml 1914 ml Output Total 375 ml 1150 ml 750 ml 400 ml Balance -229 ml 1420 ml 1638 ml 1514 ml Intake Oral 120 ml IV Total 146 ml 1700 ml 1712 ml 1414 ml Albumin 500 ml 500 ml Packed Cells 250 ml FFP 676 ml Output Urine Total 225 ml 300 ml 250 ml Stool Total 800 ml 450 ml 150 ml Emesis 375 ml 125 ml # Voids 3 # Bowel Movements 4 Laboratory Laboratory Tests Test 10/21/16 10/21/16 10/22/16 10/22/16 17:34 23:45 04:30 05:25 Hemoglobin 11.6 10.8 9.9 Hematocrit 35.9 32.7 30.3 Blood Gas Puncture Site RT BRACHIAL Blood Gas Patient Temperature 98.6 Blood Gas HCO3 22 Blood Gas Base Excess -1.6 Blood Gas Oxygen Saturation 96 Arterial Blood pH 7.42 Arterial Blood Partial 35 Pressure CO2 Arterial Blood Partial 96 Pressure O2 Arterial Blood Oxygen Content 13.9 Arterial Blood 1.4 Carboxyhemoglobin Arterial Blood Methemoglobin 0.7 Blood Gas Hemoglobin 10.3 Oxygen Delivery Device VENTILATOR Blood Gas Ventilator Setting PRVC/AC Blood Gas Inspired Oxygen 40 White Blood Count 2.9 Red Blood Count 3.59 Mean Corpuscular Volume 84.5 Mean Corpuscular Hemoglobin 27.6 Mean Corpuscular Hemoglobin 32.7 Concent Red Cell Distribution Width 17.2 Platelet Count 51 Mean Platelet Volume 9.0 Neutrophils (%) (Auto) Lymphocytes (%) (Auto) Monocytes (%) (Auto) Eosinophils (%) (Auto) Basophils (%) (Auto) Neutrophils # (Auto) Lymphocytes # (Auto) Monocytes # (Auto) Eosinophils # (Auto) Basophils # (Auto) CBC Comment AUTO DIFF Differential Total Cells 100 Counted Neutrophils % (Manual) 61 Band Neutrophils % 18 Lymphocytes % 13 Monocytes % 5 Eosinophils % 3 Neutrophils # (Manual) 2.3 Differential Comment FINAL DIFF MANUAL Platelet Estimate LOW Platelet Morphology Comment NORMAL Prothrombin Time 15.6 Prothromb Time International 1.4 Ratio Sodium Level 143 Potassium Level 3.4 Chloride Level 110 Carbon Dioxide Level 24.4 Anion Gap 9 Blood Urea Nitrogen 11 Creatinine 0.54 Estimat Glomerular Filtration 155 Rate Random Glucose 119 Calcium Level 8.6 Phosphorus Level 1.5 Magnesium Level 1.4 Total Bilirubin 1.9 Aspartate Amino Transf 18 (AST/SGOT) Alanine Aminotransferase 13 (ALT/SGPT) Alkaline Phosphatase 87 Total Protein 5.5 Albumin 2.9 Date/Time Procedure Status Source Growth 10/22/16 13:45 Aerobic Blood Culture Received Blood Peripheral Pending 10/22/16 13:45 Anaerobic Blood Culture Received Blood Peripheral Pending 10/21/16 22:00 Urine Culture - Preliminary Resulted Urine Catheterized Urine NO GROWTH IN 24 HOURS. Physical Exam HEENT: Pupils round and reactive to light; normocephalic; atraumatic; no jaundice. ABDOMEN: Soft, nondistended, nontender EXTREMITIES: No clubbing, cyanosis, or edema. GIFT PACKER: sedated, responds to stimuli Assessment and Plan Assessment: (1) Hematemesis (2) Cirrhosis (3) GI bleed Plan 1. GI bleeding - most likely related to severe portal HTN as per endoscopic findings. Evidence of small varices on exam without stigmata of bleeding - continue supportive care - monitor Hb and transfuse as needed to keep hb between 7 and 10, INR < 2 and Plt > 50 - continue PPI drip and Octreotide drip - hold BB for now - continue broad antibiotic coverage - if bleeding continue may consider a second look endoscopy - overall poor prognosis 2.ETOH induced cirrhosis - MELD 14, not a candidate for liver tx - monitor CMP and coags daily - alcohol abstinence - no liver lesions on recent CT - small ascites Problem Qualifiers (1) Cirrhosis: (2) GI bleed: Qualified Code: K92.2 - Gastrointestinal hemorrhage, unspecified gastrointestinal hemorrhage type Tremayne Archer MD Oct 22, 2016 16:30
[2016-10-22 21:06] LABS: HEMATOCRIT 29.4 % (39.0-51.0)
[2016-10-22 21:08] LABS: REVIEW FLAG FINAL
[2016-10-22 21:27] LABS: POTASSIUM 3.5 MEQ/L (3.5-5.1)
[2016-10-22 21:32] LABS: MAGNESIUM 1.8 MG/DL (1.5-2.5)
[2016-10-23] VITALS (17 sets, daily range): BP systolic 125–148; BP diastolic 58–70; PULSE 51–76; RESP 16–26; TEMP 99–99.9; O2SAT 96–100
[2016-10-23] MEDS: ALBUMIN HUMAN 5% 25 GM/500 ML BOTTLE IV SCH ×2 (02:16→14:28)
[2016-10-23] MEDS: PIPERACIL-TAZO 3.375 GM PREMIX 50 ML IV SCH ×4 (03:59→20:15)
[2016-10-23] MEDS: PANTOPRAZOLE INJ 80 MG in SODIUM CHLORIDE 0.9% INJ 100 ML IV SCH ×2 (06:02→08:54)
[2016-10-23] MEDS: SODIUM CHLOR 0.9% 1000 ML INJ 1,000 ML IV SCH ×2 (06:03→14:58)
[2016-10-23 06:16] LABS: BASOPHIL % 0.4 % (0.0-2.0); HEMATOCRIT 26.9 % (39.0-51.0); LYMPH % 25.8 % (9.0-44.0); LYMPHOCYTE # 0.9 TH/MM3 (1.0-4.8); MEAN CELL VOLUME 85.5 FL (80.0-100.0); MEAN CORPUSCULAR HEMOGLOBIN 28.2 PG (27.0-34.0); NEUT % 55.8 % (16.0-70.0); PLATELET COUNT 44 TH/MM3 (150-450); RED BLOOD COUNT 3.15 MIL/MM3 (4.50-5.90); RED CELL DISTRIBUTION WIDTH 17.7 % (11.6-17.2); WHITE BLOOD COUNT 3.6 TH/MM3 (4.0-11.0)
[2016-10-23 06:20] LABS: HEMO FLAGS AUTO DIFF
[2016-10-23 06:34] LABS: BICARBONATE 24.3 MEQ/L (21.0-32.0); MAGNESIUM 1.8 MG/DL (1.5-2.5); POTASSIUM 3.2 MEQ/L (3.5-5.1)
[2016-10-23 08:51] LABS: PLATELET ESTIMATE SMEAR LOW (NORMAL); PLATELET MORPHOLOGY NORMAL (NORMAL); SCAN/DIFF AUTO DIFF CONFIRMED
[2016-10-23] MEDS: POTASSIUM PHOSPHATE INJ 30 MMOL in SODIUM CHLOR 0.9% 250 ML INJ 250 ML IV PRN ×2 (08:54→22:42)
[2016-10-23] MEDS: SODIUM CHLORIDE 0.9% FLUSH 5 ML FLUSH FLUSH SCH ×2 (08:54→20:16)
[2016-10-23] MEDS: PHYTONADIONE 10 MG/ML VIAL SQ SCH (08:54)
[2016-10-23] MEDS: SPIRONOLACTONE 25 MG TAB PO SCH (08:54)
[2016-10-23] MEDS: OCTREOTIDE INJ 500 MCG in SODIUM CHLORID 0.9% 500 ML INJ 500 ML IV SCH ×2 (08:55→18:27)
[2016-10-23] MEDS: cefTRIAXone INJ 1,000 MG in SODIUM CHLORIDE 0.9% INJ 100 ML IV SCH (08:55)
--- NOTE | 2016-10-23 10:13 | HHI.CCPN ---
Subjective Brief History Patient admitted with lower GI bleeding underwent upper endoscopy which was negative Medical history is that of cirrhosis, portal hypertension with previous variceal bleed and band ligation few years ago Hyperammonemia and stigmata of renal failure child's 3 classification. As noted in my consultation this was clearly not an upper GI bleed but this was the not typical for a lower GI bleed either. The nuclear scan reveals bleeding from small bowel which could be an AV malformation brought on by portal hypertension but also possibly Meckel's bleed Either way bleeding has stopped at this point and hopefully will not recur Completely agree with octreotide and other measures administered Will give 2 units FFP Every effort should be made not to have to operate on the patient considering that there is a very high surgical risk in face of portal hypertension and any abdominal surgery including intestinal will be associated with higher blood loss considering that patient has arterialized high-pressure venous system Would wean to extubate at this time Critical care 35 minutes 10/23/16 Patient with cirrhosis and portal hypertension hyperammonemia and liver insufficiency Nuclear scan reveals bleeding from the mid small intestine and this is likely either area of Meckel's diverticulum or possibly an AV malformation brought on by portal hypertension Either way patient has stopped bleeding and at this point no surgical intervention is necessary If patient rebleeds emergent angiogram may be very helpful to delineate the exact location of this and patient will likely need surgery In this patient for surgery is risky considering liver failure portal hypertension and large arterialized venous systems Nothing further to add to care Critical care 35 minutes Objective Vital Signs Date Time Temp Pulse Resp B/P Pulse Ox O2 Delivery O2 Flow Rate FiO2 10/23/16 10:00 69 10/23/16 08:17 40 10/23/16 08:11 100 10/23/16 08:00 99.3 16 147/69 10/21/16 06:55 Non-Rebreather 15.00 Intake and Output 10/22/16 10/22/16 10/22/16 07:59 15:59 23:59 Intake Total 1914 ml 3573 ml 1523 ml Output Total 400 ml 950 ml 500 ml Balance 1514 ml 2623 ml 1023 ml Result Diagram: 10/23/16 0545 10/23/16 0545 Other Results Microbiology Date/Time Procedure Status Source Growth 10/21/16 22:00 Urine Culture - Final Complete Urine Catheterized Urine NO GROWTH IN 48 HOURS. Alisha Gregory MD Oct 23, 2016 10:13
[2016-10-23] MEDS: RESP: ALBUTEROL 2.5 MG/IPRATROPIUM 0.5 MG NEB (PRN) NEB ×3 (10:25→22:49)
--- NOTE | 2016-10-23 10:25 | HHI.GIFU ---
Subjective Remarks Pt recently extubated, having some difficulty speaking. Nursing staff reports green/bile output from NG suction before extubation. Having small amount of dark /tarry stool in fecal collection system. Denies abdominal pain. Objective Vitals I&O Vital Signs Date Time Temp Pulse Resp B/P Pulse Ox O2 Delivery O2 Flow Rate FiO2 10/23/16 10:00 69 10/23/16 09:40 96 Nasal Cannula 4.00 10/23/16 09:40 96 Nasal Cannula 4 10/23/16 08:17 40 10/23/16 08:11 100 40 10/23/16 08:11 40 10/23/16 08:08 40 10/23/16 08:00 40 10/23/16 08:00 99.3 54 16 147/69 99 10/23/16 08:00 54 10/23/16 06:00 51 10/23/16 04:52 100 40 10/23/16 04:00 99.1 76 20 148/70 100 10/23/16 04:00 40 10/23/16 04:00 76 10/23/16 02:00 60 10/23/16 01:07 100 40 10/23/16 00:00 99.9 54 22 125/58 100 10/23/16 00:00 40 10/23/16 00:00 60 10/22/16 22:55 100 40 10/22/16 22:16 20 10/22/16 22:00 60 10/22/16 20:27 100 40 10/22/16 20:00 99.7 73 17 147/67 100 10/22/16 20:00 40 10/22/16 17:47 100 40 10/22/16 16:00 99.0 58 18 139/66 100 10/22/16 16:00 40 10/22/16 12:26 100 40 10/22/16 12:00 99.3 67 16 126/58 100 10/22/16 12:00 40 10/22/16 10:59 100 60 I/O 10/22/16 10/22/16 10/22/16 10/23/16 10/23/16 10/23/16 07:00 15:00 23:00 07:00 15:00 23:00 Intake Total 1914 ml 3573 ml 1523 ml 2463 ml Output Total 400 ml 950 ml 500 ml 650 ml Balance 1514 ml 2623 ml 1023 ml 1813 ml IV Total 1414 ml 2573 ml 1523 ml 1963 ml Albumin 500 ml 500 ml 500 ml Tube Irrigant 500 ml Output Urine Total 250 ml 575 ml 400 ml 500 ml Stool Total 150 ml 225 ml 100 ml 150 ml Emesis 150 ml Laboratory Laboratory Tests Test 10/22/16 10/23/16 20:40 05:45 Hemoglobin 9.6 8.9 Hematocrit 29.4 26.9 Potassium Level 3.5 3.2 Phosphorus Level 1.1 1.7 Magnesium Level 1.8 1.8 White Blood Count 3.6 Red Blood Count 3.15 Mean Corpuscular Volume 85.5 Mean Corpuscular Hemoglobin 28.2 Mean Corpuscular Hemoglobin 33.0 Concent Red Cell Distribution Width 17.7 Platelet Count 44 Mean Platelet Volume 9.4 Neutrophils (%) (Auto) 55.8 Lymphocytes (%) (Auto) 25.8 Monocytes (%) (Auto) 17.0 Eosinophils (%) (Auto) 1.0 Basophils (%) (Auto) 0.4 Neutrophils # (Auto) 2.0 Lymphocytes # (Auto) 0.9 Monocytes # (Auto) 0.6 Eosinophils # (Auto) 0.0 Basophils # (Auto) 0.0 CBC Comment AUTO DIFF Differential Comment AUTO DIFF CONFIRMED Platelet Estimate LOW Platelet Morphology Comment NORMAL Sodium Level 147 Chloride Level 115 Carbon Dioxide Level 24.3 Anion Gap 8 Blood Urea Nitrogen 7 Creatinine 0.43 Estimat Glomerular Filtration 202 Rate Random Glucose 109 Calcium Level 8.8 Date/Time Procedure Status Source Growth 10/22/16 13:45 Aerobic Blood Culture Received Blood Peripheral Pending 10/22/16 13:45 Anaerobic Blood Culture Received Blood Peripheral Pending 10/21/16 22:00 Urine Culture - Final Complete Urine Catheterized Urine NO GROWTH IN 48 HOURS. Physical Exam HEENT: Pupils round and reactive to light; normocephalic; atraumatic; no jaundice. ABDOMEN: Soft, mildly distended, nontender EXTREMITIES: No clubbing, cyanosis, or edema. ACCESS COORDINATOR: alert, follows commands Assessment and Plan Assessment: (1) Hematemesis (2) Cirrhosis (3) GI bleed Plan 1. GI bleeding - improving, melena expected after significant bleeding episodes. Most likely related to severe portal HTN as per endoscopic findings. 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
--- NOTE | 2016-10-23 12:31 | HHI.PR ---
Subjective Remarks Patient seen at bedside. Intubated this am during rounds per notes has been extubated now. Bleeding scan positive for small bowel region. CT of abdomen and pelvis done Objective Vital Signs Date Time Temp Pulse Resp B/P Pulse Ox O2 Delivery O2 Flow Rate FiO2 10/23/16 10:00 69 10/23/16 09:40 96 Nasal Cannula 4.00 10/23/16 09:40 96 Nasal Cannula 4 10/23/16 08:17 40 10/23/16 08:11 100 40 10/23/16 08:11 40 10/23/16 08:08 40 10/23/16 08:00 40 10/23/16 08:00 99.3 54 16 147/69 99 10/23/16 08:00 54 10/23/16 06:00 51 10/23/16 04:52 100 40 10/23/16 04:00 99.1 76 20 148/70 100 10/23/16 04:00 40 10/23/16 04:00 76 10/23/16 02:00 60 10/23/16 01:07 100 40 10/23/16 00:00 99.9 54 22 125/58 100 10/23/16 00:00 40 10/23/16 00:00 60 10/22/16 22:55 100 40 10/22/16 22:16 20 10/22/16 22:00 60 10/22/16 20:27 100 40 10/22/16 20:00 99.7 73 17 147/67 100 10/22/16 20:00 40 10/22/16 17:47 100 40 10/22/16 16:00 99.0 58 18 139/66 100 10/22/16 16:00 40 10/22/16 12:26 100 40 I/O 10/22/16 10/22/16 10/22/16 10/23/16 10/23/16 10/23/16 07:00 15:00 23:00 07:00 15:00 23:00 Intake Total 1914 ml 3573 ml 1523 ml 2463 ml Output Total 400 ml 950 ml 500 ml 650 ml Balance 1514 ml 2623 ml 1023 ml 1813 ml IV Total 1414 ml 2573 ml 1523 ml 1963 ml Albumin 500 ml 500 ml 500 ml Tube Irrigant 500 ml Output Urine Total 250 ml 575 ml 400 ml 500 ml Stool Total 150 ml 225 ml 100 ml 150 ml Emesis 150 ml Result Diagram: 10/23/16 0545 10/23/16 0545 Procedures Last 72 hours Impressions Chest X-Ray 10/19/16 0000 Signed Impressions: Service Date/Time: Wednesday, October 19, 2016 21:41 - CONCLUSION: Negative for an acute process. Rene Duke MD FACR Objective Remarks GENERAL: This is a well-developed male on ventilator SKIN: No rashes, ecchymoses or lesions. Cool and dry. HEAD: Atraumatic. Normocephalic. NECK: Trachea midline. No JVD. Supple and nontender. CARDIOVASCULAR: Regular rate and rhythm without murmurs, gallops, or rubs. RESPIRATORY:. Breath sounds diminished equal bilaterally. No wheezes, rales, or rhonchi. GASTROINTESTINAL: Abdomen soft, non-tender, nondistended. No guarding. MUSCULOSKELETAL: Extremities without cyanosis or edema. . No calf tenderness. Negative Homans sign bilaterally. NEUROLOGICAL: Sedated Medications and IVs Current Medications Medications (Trade) Dose Ordered Sig/Felix Route Start Time Stop Time Status Last Admin (Protonix Inj/NS Inj) 100 ml @ 10 mls/hr Q10H IV 10/19/16 22:00 10/23/16 08:54 (Aldactone) 25 mg DAILY PO 10/20/16 09:00 10/23/16 08:54 (NS Flush) 2 ml UNSCH PRN FLUSH 10/19/16 22:45 (NS Flush) 2 ml BID FLUSH 10/20/16 09:00 10/23/16 08:54 Naloxone HCl 0.4 mg 0.4 mg UNSCH PRN IV 10/19/16 22:45 Ondansetron HCl 8 mg/Dextrose 54 ml @ 216 mls/hr Q6H PRN IV 10/21/16 07:15 Ceftriaxone Sodium 1000 mg/ Sodium Chloride 100 ml @ 200 mls/hr Q24H IV 10/21/16 08:00 10/23/16 08:55 Octreotide Acetate 500 mcg/ Sodium Chloride 500.5 ml @ 50 mls/hr Q10H IV 10/21/16 08:00 10/23/16 08:55 (Diprivan 1000 Mg/100ml Inj) 100 ml @ 0 mls/hr TITRATE IV 10/21/16 10:00 10/22/16 23:48 Oxycodone HCl 5 mg 5 mg Q6H PO 10/21/16 10:00 10/23/16 03:59 Potassium Chloride 100 ml @ 50 mls/hr Q2H PRN IV 10/21/16 10:00 (KCl 20 Meq Premix Inj) 100 ml @ 50 mls/hr Q2H PRN IV 10/21/16 10:00 Potassium Chloride 40 meq 40 meq UNSCH PRN PO/TUBE 10/21/16 10:00 Potassium Chloride 100 ml @ 25 mls/hr UNSCH PRN IV 10/21/16 10:00 10/22/16 11:42 Potassium Chloride 100 ml @ 50 mls/hr Q2H PRN IV 10/21/16 10:00 (Magnesium Sulfate Inj/NS Inj) 100 ml @ 50 mls/hr UNSCH PRN IV 10/21/16 10:00 Magnesium Oxide 800 mg 800 mg UNSCH PRN PO 10/21/16 10:00 (Magnesium Sulfate Inj/NS Inj) 100 ml @ 50 mls/hr UNSCH PRN IV 10/21/16 10:00 10/22/16 07:52 Potassium Phosphate 2000 mg 2,000 mg Q4H PRN PO 10/21/16 10:00 (Sodium Phosphate Inj/NS 250 ml Inj) 250 ml @ 42 mls/hr UNSCH PRN IV 10/21/16 10:00 10/22/16 23:05 (KCl 40 Meq/30 ml Liq) 40 meq UNSCH PRN PO/TUBE 10/21/16 10:00 Potassium Phosphate 2000 mg 2,000 mg UNSCH PRN PO/TUBE 10/21/16 10:00 (Potassium Phosphate Inj/NS 250 ml Inj) 260 ml @ 42 mls/hr UNSCH PRN IV 10/21/16 10:00 10/23/16 08:54 Phytonadione 5 mg 5 mg DAILY SQ 10/22/16 09:00 10/24/16 09:01 10/23/16 08:54 (NS 1000 ml Inj) 1,000 ml @ 75 mls/hr [id number] IV 10/21/16 13:00 10/23/16 06:03 (Tylenol) 325 mg Q4H PRN PO 10/21/16 12:45 10/21/16 19:31 Albumin Human 25 gm 25 gm Q12H IV 10/21/16 14:00 10/23/16 02:16 (Zosyn 3.375 Gm Premix) 50 ml @ 100 mls/hr Q6H IV 10/21/16 16:00 10/23/16 10:21 (Versed Inj) 2 mg Q2H PRN IV PUSH 10/21/16 14:45 Assessment and Plan Problem List: (1) Hematemesis Status: Acute Plan: On Sandostatin and Protonix gtt continue for a minimum of 72 hours. No hematemesis reported. Bleeding scan positive for small bowel. CT of abdomen and pelvis done Patient is intubated but per notes extubated (2) Esophageal varices in cirrhosis Status: Acute Plan: EGD done. No banding needed. (3) Respiratory failure Status: Acute Plan: Intubated during rounds this am. Extubated per notes. 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 (4) Electrolyte abnormality Status: Acute Plan: Potassium and phosphorous low. On replacement protocols. (5) Hypertension Status: Chronic Plan: Continue current medication. Blood pressure well controlled. Discussed Condition With Assessment and plan discussed per Dr. Hearn Discharge Planning Plan to discharge to Rehab Nena Boucher Oct 23, 2016 12:31
[2016-10-23] MEDS ORDERED: FUROSEMIDE 40 MG/4 ML VIAL ONE (15:45)
[2016-10-23] MEDS ORDERED: FUROSEMIDE 40 MG/4 ML VIAL IV PUSH ONE (16:00)
[2016-10-24] VITALS (13 sets, daily range): BP systolic 109–160; BP diastolic 53–97; PULSE 45–64; RESP 16–33; TEMP 98.6–100.4; O2SAT 93–100
[2016-10-24] MEDS ORDERED: FUROSEMIDE 40 MG/4 ML VIAL IV PUSH SCH (00:45)
[2016-10-24] MEDS: PANTOPRAZOLE INJ 80 MG in SODIUM CHLORIDE 0.9% INJ 100 ML IV SCH ×2 (00:50→11:01)
[2016-10-24] MEDS: OCTREOTIDE INJ 500 MCG in SODIUM CHLORID 0.9% 500 ML INJ 500 ML IV SCH ×2 (00:50→15:23)
[2016-10-24] MEDS: ALBUMIN HUMAN 5% 25 GM/500 ML BOTTLE IV SCH ×2 (02:15→13:55)
--- NOTE | 2016-10-24 03:49 | RADRPT ---
EXAM DATE/TIME: 10/24/2016 03:08 [facility] COMPARISON: CHEST SINGLE AP, October 22, 2016, 5:39. INDICATIONS : Shortness of breath. MEDICAL HISTORY : GI bleed SURGICAL HISTORY : None. ENCOUNTER: Subsequent ACUITY: 1 week PAIN SCORE: Non-responsive. LOCATION: Bilateral chest FINDINGS: Right neck central line is stable in position. There has been interval extubation and removal of naso gastric tube. Hazy bilateral opacities over the lower lung zones likely reflect parenchymal disease a nd layering effusion. Cardiomediastinal contours are grossly stable. CONCLUSION: Some interval worsening aeration, likely significant layering effusions Vito Lara MD on October 24, 2016 at 3:47 Board Certified Radiologist. This report was verified electronically.
[2016-10-24] MEDS: PIPERACIL-TAZO 3.375 GM PREMIX 50 ML IV SCH (04:05)
[2016-10-24 05:38] LABS: AUTOMATED NEUTROPHIL # 2.8 TH/MM3 (1.8-7.7); BASOPHIL % 0.7 % (0.0-2.0); EOSINOPHIL # 0.1 TH/MM3 (0-0.4); EOSINOPHIL % 1.3 % (0.0-4.0); HEMATOCRIT 26.6 % (39.0-51.0); LYMPH % 20.7 % (9.0-44.0); MEAN CELL VOLUME 85.2 FL (80.0-100.0); MEAN CORPUSCULAR HEMOGLOBIN 28.6 PG (27.0-34.0); MEAN CORPUSCULAR HGB CONC 33.6 % (32.0-36.0); MONO % 16.4 % (0.0-8.0); NEUT % 60.9 % (16.0-70.0); PLATELET COUNT 62 TH/MM3 (150-450); RED BLOOD COUNT 3.12 MIL/MM3 (4.50-5.90); RED CELL DISTRIBUTION WIDTH 17.3 % (11.6-17.2); WHITE BLOOD COUNT 4.7 TH/MM3 (4.0-11.0)
[2016-10-24 06:02] LABS: APTT (PATIENT) 37.4 SEC (24.3-30.1); INTERNATIONAL NORMALIZED RATIO 1.3 RATIO; PROTHROMBIN TIME - PATIENT 14.7 SEC (9.8-11.6)
[2016-10-24 06:11] LABS: BICARBONATE 26.5 MEQ/L (21.0-32.0); POTASSIUM 3.1 MEQ/L (3.5-5.1)
[2016-10-24 06:13] LABS: HEMO FLAGS AUTO DIFF
[2016-10-24] MEDS: POTASSIUM CHLOR 40 MEQ PREMIX 100 ML IV PRN ×2 (06:31→09:01)
--- NOTE | 2016-10-24 07:32 | HHI.PR ---
Subjective Remarks Patient seen at bedside. Patient is alert and oriented X 3. Patient denies any CP. Bleeding scan positive for small bowel region. HGB stable 8.9. CT of abdomen and pelvis done Objective Vital Signs Date Time Temp Pulse Resp B/P Pulse Ox O2 Delivery O2 Flow Rate FiO2 10/24/16 07:25 22 10/24/16 06:00 52 10/24/16 04:00 99.7 52 33 109/53 96 10/24/16 04:00 64 10/24/16 02:00 45 10/24/16 00:00 99.7 52 33 137/68 95 10/24/16 00:00 55 10/23/16 22:00 66 10/23/16 21:57 98 Nasal Cannula 3.00 10/23/16 20:00 52 10/23/16 20:00 99.3 52 24 142/65 98 10/23/16 18:00 52 10/23/16 16:00 65 10/23/16 16:00 99.0 65 26 139/67 99 10/23/16 14:00 54 10/23/16 12:00 55 10/23/16 12:00 99.1 55 17 130/69 97 10/23/16 10:00 69 10/23/16 09:40 96 Nasal Cannula 4.00 10/23/16 09:40 96 Nasal Cannula 4 10/23/16 08:17 40 10/23/16 08:11 100 40 10/23/16 08:11 40 10/23/16 08:08 40 10/23/16 08:00 40 10/23/16 08:00 99.3 54 16 147/69 99 10/23/16 08:00 54 I/O 10/23/16 10/23/16 10/23/16 10/24/16 10/24/16 10/24/16 07:00 15:00 23:00 07:00 15:00 23:00 Intake Total 2463 ml 2031 ml 1062 ml 1334 ml Output Total 650 ml 1100 ml 4500 ml 3350 ml Balance 1813 ml 931 ml -3438 ml -2016 ml IV Total 1963 ml 1531 ml 1062 ml 1334 ml Albumin 500 ml 500 ml Output Urine Total 500 ml 500 ml 4500 ml 3350 ml Stool Total 150 ml 600 ml # Bowel Movements 1 3 0 Result Diagram: 10/24/16 0530 10/24/16 0530 Procedures Last 72 hours Impressions Chest X-Ray 10/19/16 0000 Signed Impressions: Service Date/Time: Wednesday, October 19, 2016 21:41 - CONCLUSION: Negative for an acute process. Rene Duke MD FACR Objective Remarks GENERAL: This is a well-developed male SKIN: No rashes, ecchymoses or lesions. Cool and dry. HEAD: Atraumatic. Normocephalic. NECK: Trachea midline. No JVD. Supple and nontender. CARDIOVASCULAR: Regular rate and rhythm without murmurs, gallops, or rubs. RESPIRATORY:. Breath sounds diminished equal bilaterally. No wheezes, rales, or rhonchi. GASTROINTESTINAL: Abdomen soft, non-tender, nondistended. No guarding. MUSCULOSKELETAL: Extremities without cyanosis or edema. . No calf tenderness. Negative Homans sign bilaterally. NEUROLOGICAL: alert and oriented. Speech delayed. Medications and IVs Current Medications Medications (Trade) Dose Ordered Sig/Felix Route Start Time Stop Time Status Last Admin (Protonix Inj/NS Inj) 100 ml @ 10 mls/hr Q10H IV 10/19/16 22:00 10/24/16 11:01 (Aldactone) 25 mg DAILY PO 10/20/16 09:00 10/24/16 08:05 (NS Flush) 2 ml UNSCH PRN FLUSH 10/19/16 22:45 (NS Flush) 2 ml BID FLUSH 10/20/16 09:00 10/24/16 08:05 Naloxone HCl 0.4 mg 0.4 mg UNSCH PRN IV 10/19/16 22:45 Ondansetron HCl 8 mg/Dextrose 54 ml @ 216 mls/hr Q6H PRN IV 10/21/16 07:15 Octreotide Acetate 500 mcg/ Sodium Chloride 500.5 ml @ 50 mls/hr Q10H IV 10/21/16 08:00 10/24/16 00:50 (Diprivan 1000 Mg/100ml Inj) 100 ml @ 0 mls/hr TITRATE IV 10/21/16 10:00 10/22/16 23:48 Oxycodone HCl 5 mg 5 mg Q6H PO 10/21/16 10:00 10/24/16 04:06 Potassium Chloride 100 ml @ 50 mls/hr Q2H PRN IV 10/21/16 10:00 10/24/16 09:01 (KCl 20 Meq Premix Inj) 100 ml @ 50 mls/hr Q2H PRN IV 10/21/16 10:00 Potassium Chloride 40 meq 40 meq UNSCH PRN PO/TUBE 10/21/16 10:00 Potassium Chloride 100 ml @ 25 mls/hr UNSCH PRN IV 10/21/16 10:00 10/22/16 11:42 Potassium Chloride 100 ml @ 50 mls/hr Q2H PRN IV 10/21/16 10:00 (Magnesium Sulfate Inj/NS Inj) 100 ml @ 50 mls/hr UNSCH PRN IV 10/21/16 10:00 Magnesium Oxide 800 mg 800 mg UNSCH PRN PO 10/21/16 10:00 (Magnesium Sulfate Inj/NS Inj) 100 ml @ 50 mls/hr UNSCH PRN IV 10/21/16 10:00 10/22/16 07:52 Potassium Phosphate 2000 mg 2,000 mg Q4H PRN PO 10/21/16 10:00 (Sodium Phosphate Inj/NS 250 ml Inj) 250 ml @ 42 mls/hr UNSCH PRN IV 10/21/16 10:00 10/22/16 23:05 (KCl 40 Meq/30 ml Liq) 40 meq UNSCH PRN PO/TUBE 10/21/16 10:00 Potassium Phosphate 2000 mg 2,000 mg UNSCH PRN PO/TUBE 10/21/16 10:00 Potassium Phosphate 30 mmol/ Sodium Chloride 260 ml @ 42 mls/hr UNSCH PRN IV 10/21/16 10:00 10/23/16 22:42 (NS 1000 ml Inj) 1,000 ml @ 75 mls/hr [id number] IV 10/21/16 13:00 10/24/16 08:00 (Tylenol) 325 mg Q4H PRN PO 10/21/16 12:45 10/24/16 09:40 (Albumin 5% Inj) 25 gm Q12H IV 10/21/16 14:00 10/24/16 02:15 (Versed Inj) 2 mg Q2H PRN IV PUSH 10/21/16 14:45 (Lasix Inj) 40 mg BID@ IV PUSH 10/24/16 09:00 10/26/16 12:00 10/24/16 08:05 Assessment and Plan Problem List: (1) Hematemesis Status: Acute Plan: On Sandostatin and Protonix gtt. No hematemesis reported. Bleeding scan positive for small bowel. CT of abdomen and pelvis done. Patient extubated on the . On 2 4 liters (2) Esophageal varices in cirrhosis Status: Acute Plan: EGD done. No banding needed. (3) Respiratory failure Status: Acute Plan: Extubated on . O2 4 liters. Dounebs changed to every 6 hours. (4) Electrolyte abnormality Status: Acute Plan: Potassium low. On replacement protocols. (5) Hypertension Status: Chronic Plan: Continue current medication. Discussed Condition With Assessment and plan discussed with Dr. Hearn Discharge Planning Plan to discharge to rehab Nena Boucher Oct 24, 2016 07:32
--- NOTE | 2016-10-24 07:37 | HHI.CCPN ---
Subjective Remarks/Hospital Course 60-year-old very pleasant gentleman with a longstanding history of liver cirrhosis due to alcohol usage. He presented into the emergency room with complaint of waking up with hematemesis and was transferred up to the intensive care unit; intubated patient for an airway protection. Bleeding scan with mid small bowel blood pooling. Continued old blood coming from upper GI tract. 10/23: No new bleeding. Extubated today with acceptable gas exchange. Secretions from RLL pneumonia may necessitate reintubation. 10/24: Starting to re-expand RLL. Stable hemodynamics. Objective Vital Signs Date Time Temp Pulse Resp B/P Pulse Ox O2 Delivery O2 Flow Rate FiO2 10/24/16 07:25 22 10/24/16 06:00 52 10/24/16 04:00 99.7 109/53 96 10/23/16 21:57 Nasal Cannula 3.00 10/23/16 08:17 40 Intake and Output 10/23/16 10/23/16 10/24/16 08:00 16:00 00:00 Intake Total 2463 ml 2031 ml 1062 ml Output Total 650 ml 1100 ml 4500 ml Balance 1813 ml 931 ml -3438 ml Result Diagram: 10/24/16 0530 10/24/16 0530 Other Results Microbiology Date/Time Procedure Status Source Growth 10/21/16 22:00 Urine Culture - Final Complete Urine Catheterized Urine NO GROWTH IN 48 HOURS. Imaging Last 24 hours Impressions Chest X-Ray 10/21/16 0000 Signed Impressions: Service Date/Time: Friday, October 21, 2016 14:04 - CONCLUSION: 1. Right central line in place. No pneumothorax. 2. Right lower lung infiltrate. 3. Tip of NG tube is at the GE junction. Patric Pineda MD Objective Remarks Vital Signs P 58, BP 145/69, R 16 GENERAL: Conversant finally. SKIN: Warm and dry. HEAD: Normocephalic. NECK: Supple, airway widely patent. CARDIOVASCULAR: Regular rate and rhythm. No JVD. RESPIRATORY: Few rhonchi, persistent cough. Mild tachypnea. Light wheezes. GASTROINTESTINAL: Abdomen soft, non-tender, nondistended. BS active. MUSCULOSKELETAL: No cyanosis, or edema. Warm, well perfused. NEURO: Alert, conversant, confused. Moves 4 limbs. A/P Problem List: (1) Respiratory failure ICD Code: J96.90 Status: Acute (2) GI bleed ICD Code: K92.2 Status: Acute (3) Cirrhosis ICD Code: K74.60 Status: Acute (4) Hematemesis ICD Code: K92.0 Status: Acute (5) Esophageal varices in cirrhosis ICD Code: K74.60 Status: Acute Assessment and Plan Respiratory failure - extubated 10/23 RLL PNA - d/c broad spectrum ATB - follow up cultures Hematemesis - non-variceal per EGD - per GI - Tag Scan, bleeding in small bowel. - No bleeding. Liver cirrhosis with portal HTN - supportive care - Management per GI Anemia - keep Hg >7 -Transfused two units so far DVT/GI prophylaxis - Protonix/TEDs/SCDs Overall impression: Stable. No further bleeding, improved. Problem Qualifiers (1) GI bleed: Qualified Code: K92.2 - Gastrointestinal hemorrhage, unspecified gastrointestinal hemorrhage type (2) Cirrhosis: Dontrell Bernal MD Oct 24, 2016 07:37
[2016-10-24] MEDS: RESP: ALBUTEROL 2.5 MG/IPRATROPIUM 0.5 MG NEB (PRN) NEB (07:50)
[2016-10-24] MEDS: SODIUM CHLOR 0.9% 1000 ML INJ 1,000 ML IV SCH ×2 (08:00→16:48)
[2016-10-24] MEDS: SODIUM CHLORIDE 0.9% FLUSH 5 ML FLUSH FLUSH SCH ×2 (08:05→21:03)
[2016-10-24] MEDS: FUROSEMIDE 40 MG/4 ML VIAL IV PUSH SCH ×2 (08:05→16:47)
[2016-10-24] MEDS: SPIRONOLACTONE 25 MG TAB PO SCH (08:05)
[2016-10-24 08:36] LABS: PLATELET ESTIMATE SMEAR LOW (NORMAL); PLATELET MORPHOLOGY NORMAL (NORMAL); SCAN/DIFF AUTO DIFF CONFIRMED
[2016-10-24] MEDS: PHYTONADIONE 10 MG/ML VIAL SQ SCH (09:40)
[2016-10-24] MEDS: ACETAMINOPHEN 325 MG TAB PO PRN (09:40)
--- NOTE | 2016-10-24 10:03 | MR ---
cc: MARILEE HEARN D.O., KETUL DATE 10/21/2016 DATE OF [address] Mary Jane Cordova PRIMARY CARE PHYSICIAN Dr. Hearn PROCEDURE EGD. INDICATIONS Active upper GI bleeding, known history of cirrhosis, came into the hospital with hematemesis. Actively vomiting of blood. Prior to procedure the patient's lungs clear. Heart sounds were normal, mental status was alert and oriented times three. Monitoring was done on the appropriate monitor at all times. Heart rate, respiration and pulse oximetry were monitored and remained within normal limits with ROTATING EQUIPMENT SPECIALIST support. Informed consent was obtained. Risks, benefits and alternatives including but limited to the risk of bleeding, infection, perforation, adverse reaction, failure to identify pathology were explained to the patient who accepted all risks. The patient was prepped in the left lateral position. IV sedation was given by the department of anesthesia which included propofol. Scope tip of the Pentax gastroscope was advanced down in to the posterior pharynx under direct visualization down to the proximal middle and distal third of the esophagus which appeared to have small grade 1 and grade 2 esophageal varices without any active stigmata of GI bleeding. Most of the varices flattened on insufflation. GE junction was identified and appeared normal. Stomach was entered, a moderate amount of red clots and blood were noted. The stomach was thoroughly suctioned, irrigated and all the liquid as well as the clots were able to be suctioned out. The stomach was cleared using Mylicon and irrigation. Moderate to severe portal hypertensive gastropathy was noted diffusely throughout the stomach which was weeping without any clear distinct particular lesion. No clear evidence of gastric varices were identified. No clear evidence of gastric ulcerations were noted. Once the stomach was cleared, the duodenal bulb sweep second portion of the duodenum were examined and were free of any pathology. Some residual blood was noted, otherwise no active bleeding was noted. Scope was withdrawn back. Due to lack of a distinct lesion to treat, the scope was then withdrawn back. All of the air leak were suctioned. The endoscope was withdrawn. The patient tolerated the procedure and recovered in his room without any immediate complication. IMPRESSION 1. Grade 1 grade 2 esophageal varices without any stigmata of recent bleeding. 2. Moderate to severe portal hypertensive diffuse gastropathy with weeping likely the source of the patient's current active GI bleeding. 3. Normal duodenum. 4. Normal GE junction. RECOMMENDATIONS 1. Continue octreotide 50 micrograms per hour. 2. Protonix 8 milligrams per hour drip. 3. Vitamin K 10 mg times one, then 5 milligrams per day for the next three days. Consider fresh frozen plasma if he continues to have bleeding. The patient will need appropriate followup once acute exacerbation has improved. MD DENAE Crane/KK /9:25 AM /9:55 AM
[2016-10-24 15:56] LABS: POTASSIUM 3.3 MEQ/L (3.5-5.1)
--- NOTE | 2016-10-24 16:48 | HHI.GIFU ---
Subjective Remarks Pt more alert today, reports mild diffuse abdominal tenderness. No repeat bleeding episodes reported. Objective Vitals I&O Vital Signs Date Time Temp Pulse Resp B/P Pulse Ox O2 Delivery O2 Flow Rate FiO2 10/24/16 14:00 54 10/24/16 12:00 49 10/24/16 12:00 99.9 49 27 151/97 96 10/24/16 10:00 56 10/24/16 08:00 51 10/24/16 08:00 100.4 51 28 160/70 100 10/24/16 08:00 93 Nasal Cannula 5.00 10/24/16 07:25 22 10/24/16 06:00 52 10/24/16 04:00 99.7 52 33 109/53 96 10/24/16 04:00 64 10/24/16 02:00 45 10/24/16 00:00 99.7 52 33 137/68 95 10/24/16 00:00 55 10/23/16 22:00 66 10/23/16 21:57 98 Nasal Cannula 3.00 10/23/16 20:00 52 10/23/16 20:00 99.3 52 24 142/65 98 10/23/16 18:00 52 I/O 10/23/16 10/23/16 10/23/16 10/24/16 10/24/16 10/24/16 07:00 15:00 23:00 07:00 15:00 23:00 Intake Total 2463 ml 2031 ml 1062 ml 1334 ml 968 ml Output Total 650 ml 1100 ml 4500 ml 3350 ml 1600 ml Balance 1813 ml 931 ml -3438 ml -2016 ml -632 ml Intake Oral 120 ml IV Total 1963 ml 1531 ml 1062 ml 1334 ml 848 ml Albumin 500 ml 500 ml Output Urine Total 500 ml 500 ml 4500 ml 3350 ml 1600 ml Stool Total 150 ml 600 ml # Bowel Movements 1 3 0 0 Laboratory Laboratory Tests Test 10/23/16 10/24/16 10/24/16 10/24/16 20:24 05:30 05:44 15:15 Potassium Level 3.0 3.1 3.3 Phosphorus Level 1.3 1.8 White Blood Count 4.7 Red Blood Count 3.12 Hemoglobin 8.9 Hematocrit 26.6 Mean Corpuscular Volume 85.2 Mean Corpuscular Hemoglobin 28.6 Mean Corpuscular Hemoglobin 33.6 Concent Red Cell Distribution Width 17.3 Platelet Count 62 Mean Platelet Volume 8.9 Neutrophils (%) (Auto) 60.9 Lymphocytes (%) (Auto) 20.7 Monocytes (%) (Auto) 16.4 Eosinophils (%) (Auto) 1.3 Basophils (%) (Auto) 0.7 Neutrophils # (Auto) 2.8 Lymphocytes # (Auto) 1.0 Monocytes # (Auto) 0.8 Eosinophils # (Auto) 0.1 Basophils # (Auto) 0.0 CBC Comment AUTO DIFF Differential Comment AUTO DIFF CONFIRMED Platelet Estimate LOW Platelet Morphology Comment NORMAL Sodium Level 143 Chloride Level 107 Carbon Dioxide Level 26.5 Anion Gap 10 Blood Urea Nitrogen 7 Creatinine 0.47 Estimat Glomerular Filtration 182 Rate Random Glucose 87 Calcium Level 9.3 Prothrombin Time 14.7 Prothromb Time International 1.3 Ratio Activated Partial 37.4 Thromboplast Time Date/Time Procedure Status Source Growth 10/22/16 13:45 Aerobic Blood Culture - Preliminary Resulted Blood Peripheral NO GROWTH IN 2 DAYS 10/22/16 13:45 Anaerobic Blood Culture - Preliminary Resulted Blood Peripheral NO GROWTH IN 2 DAYS 10/21/16 22:00 Urine Culture - Final Complete Urine Catheterized Urine NO GROWTH IN 48 HOURS. Physical Exam HEENT: Pupils round and reactive to light; normocephalic; atraumatic; no jaundice. ABDOMEN: Soft, mildly distended, mild diffuse tenderness in all quadrants EXTREMITIES: No clubbing, cyanosis, or edema. 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 GI bleeding - improving, no repeat bleeding episodes reported. Most likely related to severe portal HTN as per endoscopic findings. 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
[2016-10-24] MEDS: RESP: ALBUTEROL 2.5 MG/IPRATROPIUM 0.5 MG NEB (SCH) NEB ×2 (17:19→20:36)
[2016-10-24] MEDS: PANTOPRAZOLE SODIUM 40 MG VIAL IV PUSH SCH ×2 (18:23→21:01)
[2016-10-24] MEDS: POTASSIUM PHOSPHATE INJ 30 MMOL in SODIUM CHLOR 0.9% 250 ML INJ 250 ML IV PRN (18:38)
[2016-10-25] VITALS (11 sets, daily range): BP systolic 142–177; BP diastolic 68–99; PULSE 50–78; RESP 13–22; TEMP 97.9–100; O2SAT 90–97
[2016-10-25] MEDS: ALBUMIN HUMAN 5% 25 GM/500 ML BOTTLE IV SCH ×2 (02:13→12:57)
[2016-10-25] MEDS: RESP: ALBUTEROL 2.5 MG/IPRATROPIUM 0.5 MG NEB (SCH) NEB ×3 (03:16→16:00)
[2016-10-25 04:43] LABS: AUTOMATED NEUTROPHIL # 2.3 TH/MM3 (1.8-7.7); BASOPHIL % 0.5 % (0.0-2.0); EOSINOPHIL # 0.1 TH/MM3 (0-0.4); EOSINOPHIL % 1.6 % (0.0-4.0); HEMATOCRIT 27.2 % (39.0-51.0); LYMPH % 24.4 % (9.0-44.0); LYMPHOCYTE # 1.1 TH/MM3 (1.0-4.8); MEAN CELL VOLUME 86.4 FL (80.0-100.0); MEAN CORPUSCULAR HEMOGLOBIN 28.4 PG (27.0-34.0); MEAN CORPUSCULAR HGB CONC 32.9 % (32.0-36.0); MONO % 20.4 % (0.0-8.0); NEUT % 53.1 % (16.0-70.0); PLATELET COUNT 55 TH/MM3 (150-450); RED BLOOD COUNT 3.15 MIL/MM3 (4.50-5.90); RED CELL DISTRIBUTION WIDTH 17.2 % (11.6-17.2); WHITE BLOOD COUNT 4.3 TH/MM3 (4.0-11.0)
[2016-10-25 04:44] LABS: HEMO FLAGS AUTO DIFF
[2016-10-25 05:15] LABS: BICARBONATE 28.1 MEQ/L (21.0-32.0); MAGNESIUM 1.5 MG/DL (1.5-2.5); POTASSIUM 3.4 MEQ/L (3.5-5.1)
[2016-10-25] MEDS: POTASSIUM PHOSPHATE INJ 30 MMOL in SODIUM CHLOR 0.9% 250 ML INJ 250 ML IV PRN (06:01)
[2016-10-25] MEDS: SODIUM CHLOR 0.9% 1000 ML INJ 1,000 ML IV SCH ×2 (06:58→20:18)
[2016-10-25 07:16] LABS: PLATELET ESTIMATE SMEAR LOW (NORMAL); PLATELET MORPHOLOGY NORMAL (NORMAL); SCAN/DIFF AUTO DIFF CONFIRMED
[2016-10-25] MEDS: PANTOPRAZOLE SODIUM 40 MG VIAL IV PUSH SCH ×2 (08:25→22:18)
[2016-10-25] MEDS: SPIRONOLACTONE 25 MG TAB PO SCH (08:25)
[2016-10-25] MEDS: SODIUM CHLORIDE 0.9% FLUSH 5 ML FLUSH FLUSH SCH ×2 (08:26→21:00)
[2016-10-25] MEDS: NADOLOL 20 MG TAB PO SCH (08:26)
[2016-10-25] MEDS: FUROSEMIDE 40 MG/4 ML VIAL IV PUSH SCH ×2 (08:26→19:26)
--- NOTE | 2016-10-25 11:14 | HHI.PR ---
Subjective Remarks Patient seen at bedside. Patient is alert and oriented X 3. Patient denies any CP or SOB. HGB stable 9.0. Objective Vital Signs Date Time Temp Pulse Resp B/P Pulse Ox O2 Delivery O2 Flow Rate FiO2 10/25/16 10:00 56 10/25/16 08:52 95 Nasal Cannula 2.00 10/25/16 08:00 63 10/25/16 08:00 99.7 63 20 177/72 91 10/25/16 06:00 62 10/25/16 04:00 54 10/25/16 04:00 100.0 54 22 147/79 95 10/25/16 02:00 52 10/25/16 00:00 100.0 50 13 145/99 97 10/25/16 00:00 50 10/24/16 22:00 48 10/24/16 20:36 95 Nasal Cannula 4.00 10/24/16 20:00 47 10/24/16 20:00 99.7 46 16 141/63 96 10/24/16 18:00 47 10/24/16 16:24 26 10/24/16 16:00 98.6 50 25 137/65 97 10/24/16 16:00 50 10/24/16 14:00 54 10/24/16 12:00 49 10/24/16 12:00 99.9 49 27 151/97 96 I/O 10/24/16 10/24/16 10/24/16 10/25/16 10/25/16 10/25/16 07:00 15:00 23:00 07:00 15:00 23:00 Intake Total 1834 ml 968 ml 763 ml 688 ml Output Total 3350 ml 1600 ml 1750 ml 800 ml Balance -1516 ml -632 ml -987 ml -112 ml Intake Oral 120 ml IV Total 1334 ml 848 ml 263 ml 188 ml Albumin 500 ml 500 ml 500 ml Output Urine Total 3350 ml 1600 ml 1750 ml 800 ml # Bowel Movements 0 0 0 0 Result Diagram: 10/25/16 0436 10/25/16 0436 Procedures Last 72 hours Impressions Chest X-Ray 10/19/16 0000 Signed Impressions: Service Date/Time: Wednesday, October 19, 2016 21:41 - CONCLUSION: Negative for an acute process. Rene Duke MD FACR Objective Remarks GENERAL: This is a well-developed male SKIN: No rashes, ecchymoses or lesions. Cool and dry. HEAD: Atraumatic. Normocephalic. NECK: Trachea midline. No JVD. Supple and nontender. CARDIOVASCULAR: Regular rate and rhythm without murmurs, gallops, or rubs. RESPIRATORY:. Breath sounds diminished equal bilaterally. No wheezes, rales, or rhonchi. GASTROINTESTINAL: Abdomen soft, non-tender, nondistended. No guarding. MUSCULOSKELETAL: Extremities without cyanosis or edema. . No calf tenderness. Negative Homans sign bilaterally. NEUROLOGICAL: alert and oriented. Speech improved Medications and IVs Current Medications Medications (Trade) Dose Ordered Sig/Felix Route Start Time Stop Time Status Last Admin (Aldactone) 25 mg DAILY PO 10/20/16 09:00 10/25/16 08:25 (NS Flush) 2 ml UNSCH PRN FLUSH 10/19/16 22:45 (NS Flush) 2 ml BID FLUSH 10/20/16 09:00 10/25/16 08:26 Naloxone HCl 0.4 mg 0.4 mg UNSCH PRN IV 10/19/16 22:45 Ondansetron HCl 8 mg/Dextrose 54 ml @ 216 mls/hr Q6H PRN IV 10/21/16 07:15 (Diprivan 1000 Mg/100ml Inj) 100 ml @ 0 mls/hr TITRATE IV 10/21/16 10:00 10/22/16 23:48 Oxycodone HCl 5 mg 5 mg Q6H PO 10/21/16 10:00 10/25/16 08:25 Potassium Chloride 100 ml @ 50 mls/hr Q2H PRN IV 10/21/16 10:00 10/24/16 09:01 (KCl 20 Meq Premix Inj) 100 ml @ 50 mls/hr Q2H PRN IV 10/21/16 10:00 Potassium Chloride 40 meq 40 meq UNSCH PRN PO/TUBE 10/21/16 10:00 Potassium Chloride 100 ml @ 25 mls/hr UNSCH PRN IV 10/21/16 10:00 10/22/16 11:42 Potassium Chloride 100 ml @ 50 mls/hr Q2H PRN IV 10/21/16 10:00 (Magnesium Sulfate Inj/NS Inj) 100 ml @ 50 mls/hr UNSCH PRN IV 10/21/16 10:00 Magnesium Oxide 800 mg 800 mg UNSCH PRN PO 10/21/16 10:00 10/25/16 08:26 (Magnesium Sulfate Inj/NS Inj) 100 ml @ 50 mls/hr UNSCH PRN IV 10/21/16 10:00 10/22/16 07:52 Potassium Phosphate 2000 mg 2,000 mg Q4H PRN PO 10/21/16 10:00 (Sodium Phosphate Inj/NS 250 ml Inj) 250 ml @ 42 mls/hr UNSCH PRN IV 10/21/16 10:00 10/22/16 23:05 (KCl 40 Meq/30 ml Liq) 40 meq UNSCH PRN PO/TUBE 10/21/16 10:00 Potassium Phosphate 2000 mg 2,000 mg UNSCH PRN PO/TUBE 10/21/16 10:00 Potassium Phosphate 30 mmol/ Sodium Chloride 260 ml @ 42 mls/hr UNSCH PRN IV 10/21/16 10:00 10/25/16 06:01 (NS 1000 ml Inj) 1,000 ml @ 75 mls/hr [id number] IV 10/21/16 13:00 10/24/16 16:48 (Tylenol) 325 mg Q4H PRN PO 10/21/16 12:45 10/24/16 09:40 (Albumin 5% Inj) 25 gm Q12H IV 10/21/16 14:00 10/25/16 02:13 (Versed Inj) 2 mg Q2H PRN IV PUSH 10/21/16 14:45 (Lasix Inj) 40 mg BID@,18 IV PUSH 10/24/16 09:00 10/26/16 12:00 10/25/16 08:26 (Protonix Inj) 40 mg Q12HR IV PUSH 10/24/16 17:00 10/25/16 08:25 (Corgard) 20 mg DAILY PO 10/25/16 09:00 10/25/16 08:26 Assessment and Plan Problem List: (1) Hematemesis Status: Acute Plan: Sandostatin and Protonix gtt discontinued. No hematemesis reported. HGB stable (2) Esophageal varices in cirrhosis Status: Acute Plan: EGD done. No banding needed. (3) Respiratory failure Status: Acute Plan: Extubated on . O2 4 liters. Dounebs changed to every 6 hours. (4) Electrolyte abnormality Status: Acute Plan: Potassium low. On replacement protocols. (5) Hypertension Status: Chronic Plan: Continue current medication. Amlodipine added B/P / Discussed Condition With Assessment and plan discussed with Dr. Hearn Discharge Planning Plan to discharge to Rehab Nena Boucher Oct 25, 2016 11:14
--- NOTE | 2016-10-25 11:37 | HHI.GIFU ---
Subjective Remarks Pt doing well sitting in chet, denies abdominal pain. Denies any new bleeding episodes. Objective Vitals I&O Vital Signs Date Time Temp Pulse Resp B/P Pulse Ox O2 Delivery O2 Flow Rate FiO2 10/25/16 10:00 56 10/25/16 08:52 95 Nasal Cannula 2.00 10/25/16 08:00 63 10/25/16 08:00 99.7 63 20 177/72 91 10/25/16 06:00 62 10/25/16 04:00 54 10/25/16 04:00 100.0 54 22 147/79 95 10/25/16 02:00 52 10/25/16 00:00 100.0 50 13 145/99 97 10/25/16 00:00 50 10/24/16 22:00 48 10/24/16 20:36 95 Nasal Cannula 4.00 10/24/16 20:00 47 10/24/16 20:00 99.7 46 16 141/63 96 10/24/16 18:00 47 10/24/16 16:24 26 10/24/16 16:00 98.6 50 25 137/65 97 10/24/16 16:00 50 10/24/16 14:00 54 10/24/16 12:00 49 10/24/16 12:00 99.9 49 27 151/97 96 I/O 10/24/16 10/24/16 10/24/16 10/25/16 10/25/16 10/25/16 07:00 15:00 23:00 07:00 15:00 23:00 Intake Total 1834 ml 968 ml 763 ml 688 ml Output Total 3350 ml 1600 ml 1750 ml 800 ml Balance -1516 ml -632 ml -987 ml -112 ml Intake Oral 120 ml IV Total 1334 ml 848 ml 263 ml 188 ml Albumin 500 ml 500 ml 500 ml Output Urine Total 3350 ml 1600 ml 1750 ml 800 ml # Bowel Movements 0 0 0 0 Laboratory Laboratory Tests Test 10/24/16 10/25/16 15:15 04:36 Potassium Level 3.3 3.4 Phosphorus Level 1.8 2.3 White Blood Count 4.3 Red Blood Count 3.15 Hemoglobin 9.0 Hematocrit 27.2 Mean Corpuscular Volume 86.4 Mean Corpuscular Hemoglobin 28.4 Mean Corpuscular Hemoglobin 32.9 Concent Red Cell Distribution Width 17.2 Platelet Count 55 Mean Platelet Volume 9.1 Neutrophils (%) (Auto) 53.1 Lymphocytes (%) (Auto) 24.4 Monocytes (%) (Auto) 20.4 Eosinophils (%) (Auto) 1.6 Basophils (%) (Auto) 0.5 Neutrophils # (Auto) 2.3 Lymphocytes # (Auto) 1.1 Monocytes # (Auto) 0.9 Eosinophils # (Auto) 0.1 Basophils # (Auto) 0.0 CBC Comment AUTO DIFF Differential Comment AUTO DIFF CONFIRMED Platelet Estimate LOW Platelet Morphology Comment NORMAL Sodium Level 143 Chloride Level 107 Carbon Dioxide Level 28.1 Anion Gap 8 Blood Urea Nitrogen 9 Creatinine 0.48 Estimat Glomerular Filtration 178 Rate Random Glucose 91 Calcium Level 9.1 Magnesium Level 1.5 Date/Time Procedure Status Source Growth 10/22/16 13:45 Aerobic Blood Culture - Preliminary Resulted Blood Peripheral NO GROWTH IN 3 DAYS 10/22/16 13:45 Anaerobic Blood Culture - Preliminary Resulted Blood Peripheral NO GROWTH IN 3 DAYS 10/21/16 22:00 Urine Culture - Final Complete Urine Catheterized Urine NO GROWTH IN 48 HOURS. Physical Exam HEENT: Pupils round and reactive to light; normocephalic; atraumatic; no jaundice. ABDOMEN: Soft, distended, mild diffuse tenderness in all quadrants EXTREMITIES: No clubbing, cyanosis, or edema. 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 GI bleeding - resolved, no repeat bleeding episodes reported. Most likely related to severe portal HTN as per endoscopic findings. 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
[2016-10-26] VITALS (10 sets, daily range): BP systolic 117–166; BP diastolic 61–77; PULSE 60–82; RESP 19–26; TEMP 97.8–100.4; O2SAT 90–95
[2016-10-26] MEDS: ALBUMIN HUMAN 5% 25 GM/500 ML BOTTLE IV SCH ×2 (02:49→12:38)
[2016-10-26] MEDS: RESP: ALBUTEROL 2.5 MG/IPRATROPIUM 0.5 MG NEB (SCH) NEB ×4 (03:28→19:36)
[2016-10-26 07:14] LABS: HEMATOCRIT 28.2 % (39.0-51.0); MEAN CELL VOLUME 86.9 FL (80.0-100.0); MEAN CORPUSCULAR HEMOGLOBIN 28.6 PG (27.0-34.0); MEAN CORPUSCULAR HGB CONC 32.9 % (32.0-36.0); PLATELET COUNT 72 TH/MM3 (150-450); RED BLOOD COUNT 3.25 MIL/MM3 (4.50-5.90); RED CELL DISTRIBUTION WIDTH 17.1 % (11.6-17.2); WHITE BLOOD COUNT 5.2 TH/MM3 (4.0-11.0)
[2016-10-26 07:46] LABS: BICARBONATE 28.1 MEQ/L (21.0-32.0); POTASSIUM 3.2 MEQ/L (3.5-5.1)
[2016-10-26] MEDS: NADOLOL 20 MG TAB PO SCH (09:00)
[2016-10-26] MEDS: SODIUM CHLOR 0.9% 1000 ML INJ 1,000 ML IV SCH ×2 (09:06→22:58)
[2016-10-26] MEDS: SPIRONOLACTONE 25 MG TAB PO SCH (09:07)
[2016-10-26] MEDS: PANTOPRAZOLE SODIUM 40 MG VIAL IV PUSH SCH (09:07)
[2016-10-26] MEDS: FUROSEMIDE 40 MG/4 ML VIAL IV PUSH SCH (09:07)
[2016-10-26] MEDS: SODIUM CHLORIDE 0.9% FLUSH 5 ML FLUSH FLUSH SCH ×2 (09:08→20:45)
--- NOTE | 2016-10-26 10:17 | HHI.GIFU ---
Subjective Remarks Pt doing well, feeling stronger. Had one soft dark BM today. No gross bleeding noted. Objective Vitals I&O Vital Signs Date Time Temp Pulse Resp B/P Pulse Ox O2 Delivery O2 Flow Rate FiO2 10/26/16 07:20 100.1 60 20 149/68 93 10/26/16 05:00 99.6 65 20 166/77 93 10/26/16 03:30 90 Nasal Cannula 2.00 10/26/16 00:05 100.4 75 19 144/65 92 10/25/16 20:32 97.9 78 20 166/75 95 10/25/16 16:00 98.6 56 20 147/69 90 10/25/16 16:00 57 10/25/16 14:00 57 10/25/16 12:00 50 10/25/16 12:00 99.1 50 17 142/68 97 I/O 10/25/16 10/25/16 10/25/16 10/26/16 10/26/16 10/26/16 07:00 15:00 23:00 07:00 15:00 23:00 Intake Total 688 ml 1302 ml Output Total 800 ml 1925 ml 300 ml Balance -112 ml -623 ml -300 ml Intake Oral 360 ml IV Total 188 ml 442 ml Albumin 500 ml 500 ml Output Urine Total 800 ml 1925 ml 300 ml # Voids 1 # Bowel Movements 0 0 1 Laboratory Laboratory Tests Test 10/26/16 06:30 White Blood Count 5.2 Red Blood Count 3.25 Hemoglobin 9.3 Hematocrit 28.2 Mean Corpuscular Volume 86.9 Mean Corpuscular Hemoglobin 28.6 Mean Corpuscular Hemoglobin 32.9 Concent Red Cell Distribution Width 17.1 Platelet Count 72 Mean Platelet Volume 8.5 Sodium Level 140 Potassium Level 3.2 Chloride Level 105 Carbon Dioxide Level 28.1 Anion Gap 7 Blood Urea Nitrogen 8 Creatinine 0.50 Estimat Glomerular Filtration 170 Rate Random Glucose 89 Calcium Level 9.7 Date/Time Procedure Status Source Growth 10/22/16 13:45 Aerobic Blood Culture - Preliminary Resulted Blood Peripheral NO GROWTH IN 3 DAYS 10/22/16 13:45 Anaerobic Blood Culture - Preliminary Resulted Blood Peripheral NO GROWTH IN 3 DAYS 10/21/16 22:00 Urine Culture - Final Complete Urine Catheterized Urine NO GROWTH IN 48 HOURS. Physical Exam HEENT: Pupils round and reactive to light; normocephalic; atraumatic; no jaundice. ABDOMEN: Soft, distended, mild diffuse tenderness in all quadrants EXTREMITIES: No clubbing, cyanosis, or edema. 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 GI bleeding - resolved, no repeat bleeding episodes reported. Most likely related to severe portal HTN as per endoscopic findings. 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
--- NOTE | 2016-10-26 10:53 | HHI.PR ---
Subjective Remarks slowly improving hgb rising Objective Vital Signs Date Time Temp Pulse Resp B/P Pulse Ox O2 Delivery O2 Flow Rate FiO2 10/26/16 07:20 100.1 60 20 149/68 93 10/26/16 05:00 99.6 65 20 166/77 93 10/26/16 03:30 90 Nasal Cannula 2.00 10/26/16 00:05 100.4 75 19 144/65 92 10/25/16 20:32 97.9 78 20 166/75 95 10/25/16 16:00 98.6 56 20 147/69 90 10/25/16 16:00 57 10/25/16 14:00 57 10/25/16 12:00 50 10/25/16 12:00 99.1 50 17 142/68 97 I/O 10/25/16 10/25/16 10/25/16 10/26/16 10/26/16 10/26/16 07:00 15:00 23:00 07:00 15:00 23:00 Intake Total 688 ml 1302 ml Output Total 800 ml 1925 ml 300 ml Balance -112 ml -623 ml -300 ml Intake Oral 360 ml IV Total 188 ml 442 ml Albumin 500 ml 500 ml Output Urine Total 800 ml 1925 ml 300 ml # Voids 1 # Bowel Movements 0 0 1 Result Diagram: 10/26/16 0630 10/26/16 0630 Procedures Last 72 hours Impressions Chest X-Ray 10/19/16 0000 Signed Impressions: Service Date/Time: Wednesday, October 19, 2016 21:41 - CONCLUSION: Negative for an acute process. Rene Duke MD FACR Objective Remarks GENERAL: SKIN: Warm and dry. HEAD: Atraumatic. Normocephalic. EYES: Pupils equal and round. No scleral icterus. No injection or drainage. ENT: No nasal bleeding or discharge. Mucous membranes pink and moist. NECK: Trachea midline. No JVD. CARDIOVASCULAR: Regular rate and rhythm. RESPIRATORY: No accessory muscle use. Clear to auscultation. Breath sounds equal bilaterally. GASTROINTESTINAL: Abdomen soft, non-tender, nondistended. Hepatic and splenic margins not palpable. MUSCULOSKELETAL: Extremities without clubbing, cyanosis, or edema. No obvious deformities. NEUROLOGICAL: Awake and alert. No obvious cranial nerve deficits. Motor grossly within normal limits. Five out of 5 muscle strength in the arms and legs. Normal speech. PSYCHIATRIC: Appropriate mood and affect; insight and judgment normal. Medications and IVs Current Medications Medications (Trade) Dose Ordered Sig/Felix Route PRN Reason Start Time Stop Time Status Last Admin Dose Admin Spironolactone (Aldactone) 25 mg DAILY PO 10/20/16 09:00 10/26/16 09:07 IV Flush (NS Flush) 2 ml UNSCH PRN FLUSH FLUSH AFTER USING IV ACCESS 10/19/16 22:45 IV Flush (NS Flush) 2 ml BID FLUSH 10/20/16 09:00 10/26/16 09:08 Naloxone HCl 0.4 mg 0.4 mg UNSCH PRN IV SEE LABEL COMMENTS 10/19/16 22:45 Ondansetron HCl 8 mg/Dextrose 54 ml @ 216 mls/hr Q6H PRN IV NAUSEA 10/21/16 07:15 Propofol 100 ml @ 0 mls/hr TITRATE IV 10/21/16 10:00 10/22/16 23:48 Potassium Chloride 100 ml @ 50 mls/hr Q2H PRN IV For Potassium 2.8 - 3.2 mEq/L 10/21/16 10:00 10/24/16 09:01 Potassium Chloride (KCl 20 Meq Premix Inj) 100 ml @ 50 mls/hr Q2H PRN IV For Potassium 2.8 - 3.2 mEq/L 10/21/16 10:00 Potassium Chloride 40 meq 40 meq UNSCH PRN PO/TUBE For Potassium 3.3 - 3.5 mEq/L 10/21/16 10:00 Potassium Chloride 100 ml @ 25 mls/hr UNSCH PRN IV For Potassium 3.3 - 3.5 mEq/L 10/21/16 10:00 10/22/16 11:42 Potassium Chloride 100 ml @ 50 mls/hr Q2H PRN IV For Potassium 3.3 - 3.5 mEq/L 10/21/16 10:00 Magnesium Sulfate/ Sodium Chloride (Magnesium Sulfate Inj/NS Inj) 100 ml @ 50 mls/hr UNSCH PRN IV For Magnesium 0.9 - 1.1 mg/dL 10/21/16 10:00 Magnesium Oxide 800 mg 800 mg UNSCH PRN PO For Magnesium 1.2 - 1.6 mg/dL 10/21/16 10:00 10/25/16 08:26 Magnesium Sulfate/ Sodium Chloride (Magnesium Sulfate Inj/NS Inj) 100 ml @ 50 mls/hr UNSCH PRN IV For Magnesium 1.2 - 1.6 mg/dL 10/21/16 10:00 10/22/16 07:52 Potassium Phosphate 2000 mg 2,000 mg Q4H PRN PO For Phosphorus < 2.5 mg/dL 10/21/16 10:00 Sodium Phosphate/ Sodium Chloride (Sodium Phosphate Inj/NS 250 ml Inj) 250 ml @ 42 mls/hr UNSCH PRN IV For Phosphorus < 2.5 mg/dL 10/21/16 10:00 10/22/16 23:05 Potassium Chloride (KCl 40 Meq/30 ml Liq) 40 meq UNSCH PRN PO/TUBE SEE LABEL COMMENTS 10/21/16 10:00 Potassium Phosphate 2000 mg 2,000 mg UNSCH PRN PO/TUBE SEE LABEL COMMENTS 10/21/16 10:00 Potassium Phosphate 30 mmol/ Sodium Chloride 260 ml @ 42 mls/hr UNSCH PRN IV SEE LABEL COMMENTS 10/21/16 10:00 10/25/16 06:01 Sodium Chloride (NS 1000 ml Inj) 1,000 ml @ 75 mls/hr [id number] IV 10/21/16 13:00 10/25/16 20:18 Acetaminophen (Tylenol) 325 mg Q4H PRN PO INCREASED TEMPERATURE 10/21/16 12:45 10/24/16 09:40 Albumin Human (Albumin 5% Inj) 25 gm Q12H IV 10/21/16 14:00 10/26/16 02:49 Midazolam HCl (Versed Inj) 2 mg Q2H PRN IV PUSH AGITATION 10/21/16 14:45 Furosemide (Lasix Inj) 40 mg BID@09,18 IV PUSH 10/24/16 09:00 10/26/16 12:00 10/26/16 09:07 Nadolol (Corgard) 20 mg DAILY PO 10/25/16 09:00 10/26/16 09:00 Amlodipine Besylate (Norvasc) 10 mg DAILY PO 10/26/16 09:00 10/26/16 09:07 Oxycodone HCl (Roxicodone) 10 mg Q4H PRN PO PAIN 10/26/16 05:45 10/26/16 09:07 Pantoprazole Sodium (Protonix) 40 mg Q12HR PO 10/26/16 21:00 Assessment and Plan Assessment and Plan improving no further gi bleeding hgb improved 9.2 will consult pt and ot to see if he can go home Discharge Planning Molina Lawrence DO Oct 26, 2016 10:53
[2016-10-26] MEDS: PANTOPRAZOLE SOD 40 MG DELAYED RELEASE TAB PO SCH (20:44)
[2016-10-26 22:33] LABS: AUTOMATED NEUTROPHIL # 2.4 TH/MM3 (1.8-7.7); BASOPHIL % 0.6 % (0.0-2.0); EOSINOPHIL # 0.1 TH/MM3 (0-0.4); EOSINOPHIL % 1.9 % (0.0-4.0); HEMATOCRIT 28.1 % (39.0-51.0); LYMPH % 25.8 % (9.0-44.0); LYMPHOCYTE # 1.2 TH/MM3 (1.0-4.8); MEAN CELL VOLUME 86.4 FL (80.0-100.0); MEAN CORPUSCULAR HEMOGLOBIN 28.3 PG (27.0-34.0); MEAN CORPUSCULAR HGB CONC 32.8 % (32.0-36.0); MONO % 21.9 % (0.0-8.0); NEUT % 49.8 % (16.0-70.0); PLATELET COUNT 66 TH/MM3 (150-450); RED BLOOD COUNT 3.25 MIL/MM3 (4.50-5.90); WHITE BLOOD COUNT 4.8 TH/MM3 (4.0-11.0)
[2016-10-26 22:45] LABS: HEMO FLAGS AUTO DIFF
[2016-10-26 22:52] LABS: ALT (GPT) 18 U/L (12-78); ANION GAP 4 MEQ/L (5-15); AST (GOT) 27 U/L (15-37); BICARBONATE 32.8 MEQ/L (21.0-32.0); BLOOD UREA NITROGEN 11 MG/DL (7-18); CHLORIDE 104 MEQ/L (98-107); GLOMERULAR FILTRATION RATE 149 ML/MIN (>89); POTASSIUM 3.1 MEQ/L (3.5-5.1); SODIUM (NA) 141 MEQ/L (136-145)
[2016-10-26 22:54] LABS: ALKALINE PHOSPHATASE 84 U/L (45-117); TOTAL BILIRUBIN ADULT 1.4 MG/DL (0.2-1.0)
[2016-10-26 23:19] LABS: PLATELET ESTIMATE SMEAR LOW (NORMAL); PLATELET MORPHOLOGY NORMAL (NORMAL); SCAN/DIFF AUTO DIFF CONFIRMED
[2016-10-27] VITALS (8 sets, daily range): BP systolic 120–144; BP diastolic 62–96; PULSE 67–80; RESP 18–20; TEMP 97.8–98.9; O2SAT 90–95
[2016-10-27] MEDS: ALBUMIN HUMAN 5% 25 GM/500 ML BOTTLE IV SCH ×2 (01:23→14:57)
[2016-10-27] MEDS: RESP: ALBUTEROL 2.5 MG/IPRATROPIUM 0.5 MG NEB (SCH) NEB ×4 (04:32→20:43)
[2016-10-27] MEDS: SPIRONOLACTONE 25 MG TAB PO SCH (08:29)
[2016-10-27] MEDS: NADOLOL 20 MG TAB PO SCH (08:29)
[2016-10-27] MEDS: PANTOPRAZOLE SOD 40 MG DELAYED RELEASE TAB PO SCH ×2 (08:29→20:29)
[2016-10-27] MEDS: SODIUM CHLORIDE 0.9% FLUSH 5 ML FLUSH FLUSH SCH ×2 (08:30→20:32)
--- NOTE | 2016-10-27 09:43 | HHI.PR ---
Subjective Remarks more alert today r arm swollen will image ammoniae up a bit Objective Vital Signs Date Time Temp Pulse Resp B/P Pulse Ox O2 Delivery O2 Flow Rate FiO2 10/27/16 09:03 93 Nasal Cannula 2.00 10/27/16 08:00 98.8 80 18 124/62 90 10/27/16 04:00 98.7 80 20 120/72 95 10/26/16 20:00 98.5 81 26 117/62 93 10/26/16 19:38 90 Nasal Cannula 2.00 10/26/16 19:00 82 10/26/16 15:30 98.0 79 20 120/67 92 10/26/16 11:25 97.8 71 20 136/61 95 10/26/16 11:18 93 Nasal Cannula 2.00 I/O 10/26/16 10/26/16 10/26/16 10/27/16 10/27/16 10/27/16 07:00 15:00 23:00 07:00 15:00 23:00 Intake Total 480 ml Output Total 1000 ml Balance -520 ml Intake Oral 480 ml Output Urine Total 1000 ml # Voids 1 # Bowel Movements 1 1 Result Diagram: 10/26/16 2200 10/26/16 2200 Procedures Last 72 hours Impressions Chest X-Ray 10/19/16 0000 Signed Impressions: Service Date/Time: Wednesday, October 19, 2016 21:41 - CONCLUSION: Negative for an acute process. Rene Duke MD FACR Objective Remarks GENERAL: SKIN: Warm and dry. HEAD: Atraumatic. Normocephalic. EYES: Pupils equal and round. No scleral icterus. No injection or drainage. ENT: No nasal bleeding or discharge. Mucous membranes pink and moist. NECK: Trachea midline. No JVD. CARDIOVASCULAR: Regular rate and rhythm. RESPIRATORY: No accessory muscle use. Clear to auscultation. Breath sounds equal bilaterally. GASTROINTESTINAL: Abdomen soft, non-tender, nondistended. Hepatic and splenic margins not palpable. MUSCULOSKELETAL: Extremities without clubbing, cyanosis, or edema. No obvious deformities. NEUROLOGICAL: Awake and alert. No obvious cranial nerve deficits. Motor grossly within normal limits. Five out of 5 muscle strength in the arms and legs. Normal speech. PSYCHIATRIC: Appropriate mood and affect; insight and judgment normal. Medications and IVs Current Medications Medications (Trade) Dose Ordered Sig/Felix Route PRN Reason Start Time Stop Time Status Last Admin Dose Admin Spironolactone (Aldactone) 25 mg DAILY PO 10/20/16 09:00 10/27/16 08:29 IV Flush (NS Flush) 2 ml UNSCH PRN FLUSH FLUSH AFTER USING IV ACCESS 10/19/16 22:45 IV Flush (NS Flush) 2 ml BID FLUSH 10/20/16 09:00 10/27/16 08:30 Naloxone HCl 0.4 mg 0.4 mg UNSCH PRN IV SEE LABEL COMMENTS 10/19/16 22:45 Ondansetron HCl 8 mg/Dextrose 54 ml @ 216 mls/hr Q6H PRN IV NAUSEA 10/21/16 07:15 Propofol 100 ml @ 0 mls/hr TITRATE IV 10/21/16 10:00 10/22/16 23:48 Sodium Chloride (NS 1000 ml Inj) 1,000 ml @ 75 mls/hr [id number] IV 10/21/16 13:00 10/25/16 20:18 Acetaminophen (Tylenol) 325 mg Q4H PRN PO INCREASED TEMPERATURE 10/21/16 12:45 10/24/16 09:40 Albumin Human (Albumin 5% Inj) 25 gm Q12H IV 10/21/16 14:00 10/27/16 01:23 Midazolam HCl (Versed Inj) 2 mg Q2H PRN IV PUSH AGITATION 10/21/16 14:45 Nadolol (Corgard) 20 mg DAILY PO 10/25/16 09:00 10/27/16 08:29 Amlodipine Besylate (Norvasc) 10 mg DAILY PO 10/26/16 09:00 10/27/16 08:29 Oxycodone HCl (Roxicodone) 10 mg Q4H PRN PO PAIN 10/26/16 05:45 10/27/16 08:29 Pantoprazole Sodium (Protonix) 40 mg Q12HR PO 10/26/16 21:00 10/27/16 08:29 Assessment and Plan Assessment and Plan add venous doppler for er arm watch ammonia may need lactulose but will avoid for today as he has had recent GI bleed fu ammonia in am consider lactulose if level still up and ok with GI Discussed Condition With patient and nursing Molina Hearn DO Oct 27, 2016 09:43
--- NOTE | 2016-10-27 10:41 | HHI.GIFU ---
Subjective Remarks Pt doing well, no complaints. Tolerating regular diet. Wants to go home soon. No new BM's reported. No GI bleeding noted. Objective Vitals I&O Vital Signs Date Time Temp Pulse Resp B/P Pulse Ox O2 Delivery O2 Flow Rate FiO2 10/27/16 09:03 93 Nasal Cannula 2.00 10/27/16 08:00 98.8 80 18 124/62 90 10/27/16 04:00 98.7 80 20 120/72 95 10/26/16 20:00 98.5 81 26 117/62 93 10/26/16 19:38 90 Nasal Cannula 2.00 10/26/16 19:00 82 10/26/16 15:30 98.0 79 20 120/67 92 10/26/16 11:25 97.8 71 20 136/61 95 10/26/16 11:18 93 Nasal Cannula 2.00 I/O 10/26/16 10/26/16 10/26/16 10/27/16 10/27/16 10/27/16 06:59 14:59 22:59 06:59 14:59 22:59 Intake Total 480 ml Output Total 1000 ml Balance -520 ml Intake Oral 480 ml Output Urine Total 1000 ml # Voids 1 # Bowel Movements 1 1 Laboratory Laboratory Tests Test 10/26/16 22:00 White Blood Count 4.8 Red Blood Count 3.25 Hemoglobin 9.2 Hematocrit 28.1 Mean Corpuscular Volume 86.4 Mean Corpuscular Hemoglobin 28.3 Mean Corpuscular Hemoglobin 32.8 Concent Red Cell Distribution Width 17.0 Platelet Count 66 Mean Platelet Volume 9.2 Neutrophils (%) (Auto) 49.8 Lymphocytes (%) (Auto) 25.8 Monocytes (%) (Auto) 21.9 Eosinophils (%) (Auto) 1.9 Basophils (%) (Auto) 0.6 Neutrophils # (Auto) 2.4 Lymphocytes # (Auto) 1.2 Monocytes # (Auto) 1.1 Eosinophils # (Auto) 0.1 Basophils # (Auto) 0.0 CBC Comment AUTO DIFF Differential Comment AUTO DIFF CONFIRMED Platelet Estimate LOW Platelet Morphology Comment NORMAL Sodium Level 141 Potassium Level 3.1 Chloride Level 104 Carbon Dioxide Level 32.8 Anion Gap 4 Blood Urea Nitrogen 11 Creatinine 0.56 Estimat Glomerular Filtration 149 Rate Random Glucose 105 Calcium Level 9.7 Total Bilirubin 1.4 Aspartate Amino Transf 27 (AST/SGOT) Alanine Aminotransferase 18 (ALT/SGPT) Alkaline Phosphatase 84 Ammonia 53 Total Protein 6.1 Albumin 3.8 Date/Time Procedure Status Source Growth 10/22/16 13:45 Aerobic Blood Culture - Preliminary Resulted Blood Peripheral NO GROWTH IN 4 DAYS 10/22/16 13:45 Anaerobic Blood Culture - Preliminary Resulted Blood Peripheral NO GROWTH IN 4 DAYS Physical Exam HEENT: Pupils round and reactive to light; normocephalic; atraumatic; no jaundice. ABDOMEN: Soft, distended, mild diffuse tenderness in all quadrants EXTREMITIES: No clubbing, cyanosis, or edema. 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 GI bleeding - resolved, no repeat bleeding episodes reported. Most likely related to severe portal HTN as per endoscopic findings. 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 Will arrange f/u as outpatient with 2 weeks. Please call with any questions. Thank you for this consult. Problem Qualifiers (1) Cirrhosis: (2) GI bleed: Qualified Code: K92.2 - Gastrointestinal hemorrhage, unspecified gastrointestinal hemorrhage type Tremayne Archer MD Oct 27, 2016 10:41
[2016-10-27] MEDS: SODIUM CHLOR 0.9% 1000 ML INJ 1,000 ML IV SCH (11:55)
[2016-10-27 13:40] LABS: BLOOD, URINE SMALL (NEG); GLUCOSE,URINE NEG (NEG); KETONE, URINE NEG (NEG); MUCUS URINE MANY /lpf (OCC); NITRITE,URINE NEG (NEG)
[2016-10-27 13:42] LABS: COMMENT (UR) CULT NOT INDICATED; CULTURE IF INDICATED CULT NOT INDICATED; URINE COLOR ORANGE (YELLW/STRAW)
[2016-10-27 14:05] LABS: POTASSIUM 3.3 MEQ/L (3.5-5.1)
[2016-10-27] MEDS ORDERED: POTASSIUM CHLORIDE 20 MEQ CONTROLLED RELEASE TAB PO SCH (20:00)
[2016-10-27] MEDS: POTASSIUM CHLORIDE 20 MEQ CONTROLLED RELEASE TAB PO SCH (20:29)
--- NOTE | 2016-10-27 23:44 | RADRPT ---
EXAM DATE/TIME: 10/27/2016 21:08 [facility] COMPARISON: No previous studies available for comparison. INDICATIONS : Swelling in right upper extremity. MEDICAL HISTORY : Hypertension. Chronic obstructive pulmonary disease. Gastroesophageal reflux disease. Arthritis. 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 Cirrhosis. SURGICAL HISTORY : Tonsillectomy. Esophagus banding. ENCOUNTER: Initial ACUITY: 2 day PAIN SCORE: 0/10 LOCATION: Right arm. FINDINGS: There is occlusive DVT in the axillary, subclavian, brachial and basilic veins in the right upper ext remity. There is also DVT in the cephalic vein as well as the ulnar vein at the wrist. The internal j ugular appears to be patent. CONCLUSION: Occlusive DVT is noted in the right upper extremity. Patric Pineda MD on October 27, 2016 at 23:40 Board Certified Radiologist. This report was verified electronically.
[2016-10-28] VITALS (7 sets, daily range): BP systolic 110–136; BP diastolic 56–84; PULSE 56–80; RESP 17–20; TEMP 97.1–99.2; O2SAT 93–95
[2016-10-28] MEDS: SODIUM CHLOR 0.9% 1000 ML INJ 1,000 ML IV SCH ×2 (01:38→14:58)
[2016-10-28] MEDS: ALBUMIN HUMAN 5% 25 GM/500 ML BOTTLE IV SCH ×2 (02:00→04:32)
[2016-10-28] MEDS: RESP: ALBUTEROL 2.5 MG/IPRATROPIUM 0.5 MG NEB (SCH) NEB ×4 (04:22→20:55)
[2016-10-28 08:58] LABS: BICARBONATE 29.2 MEQ/L (21.0-32.0); POTASSIUM 3.2 MEQ/L (3.5-5.1)
[2016-10-28] MEDS: SODIUM CHLORIDE 0.9% FLUSH 5 ML FLUSH FLUSH SCH ×2 (09:00→21:57)
[2016-10-28] MEDS: PANTOPRAZOLE SOD 40 MG DELAYED RELEASE TAB PO SCH ×2 (09:11→21:56)
[2016-10-28] MEDS: POTASSIUM CHLORIDE 20 MEQ CONTROLLED RELEASE TAB PO SCH ×2 (09:11→21:56)
[2016-10-28] MEDS: NADOLOL 20 MG TAB PO SCH (09:12)
[2016-10-28] MEDS: SPIRONOLACTONE 25 MG TAB PO SCH (09:12)
--- NOTE | 2016-10-28 14:11 | HHI.PR ---
Subjective Remarks Anxious to go home. Feels ok. Objective Vital Signs Date Time Temp Pulse Resp B/P Pulse Ox O2 Delivery O2 Flow Rate FiO2 10/28/16 12:28 98.0 57 20 110/56 94 10/28/16 09:09 Nasal Cannula 2.00 10/28/16 08:00 97.1 79 20 136/84 95 10/28/16 04:56 99.2 80 18 131/63 93 10/27/16 23:53 98.5 76 18 139/64 91 10/27/16 20:43 Nasal Cannula 2.00 10/27/16 20:38 98.9 74 18 144/96 90 10/27/16 19:00 67 10/27/16 16:00 97.8 71 19 144/68 94 I/O 10/27/16 10/27/16 10/27/16 10/28/16 10/28/16 10/28/16 07:00 15:00 23:00 07:00 15:00 23:00 Intake Total 240 ml Balance 240 ml Intake Oral 240 ml # Voids 2 2 # Bowel Movements 0 Result Diagram: 10/26/16 2200 10/28/16 0805 Imaging Last 72 hours Impressions Upper Extremity Ultrasound 10/27/16 0000 Signed Impressions: Service Date/Time: Thursday, October 27, 2016 21:08 - CONCLUSION: Occlusive DVT is noted in the right upper extremity. Patric Pineda MD Procedures Last 72 hours Impressions Chest X-Ray 10/19/16 0000 Signed Impressions: Service Date/Time: Wednesday, October 19, 2016 21:41 - CONCLUSION: Negative for an acute process. Rene Duke MD FACR Objective Remarks GENERAL: Well-nourished, well-developed patient. SKIN: Warm and dry. HEAD: Normocephalic. EYES: No scleral icterus. No injection or drainage. NECK: Supple, trachea midline. No JVD or lymphadenopathy. CARDIOVASCULAR: Regular rate and rhythm without murmurs, gallops, or rubs. RESPIRATORY: Breath sounds equal bilaterally. No accessory muscle use. GASTROINTESTINAL: Abdomen soft, non-tender, nondistended. EXTREMITIES: Generalized edema, worse in RUE. NEUROLOGICAL: Awake, alert, and oriented x 3. Non-focal. Medications and IVs Current Medications Medications (Trade) Dose Ordered Sig/Felix Route Start Time Stop Time Status Last Admin (Aldactone) 25 mg DAILY PO 10/20/16 09:00 10/28/16 09:12 (NS Flush) 2 ml UNSCH PRN FLUSH 10/19/16 22:45 (NS Flush) 2 ml BID FLUSH 10/20/16 09:00 10/28/16 09:00 Naloxone HCl 0.4 mg 0.4 mg UNSCH PRN IV 10/19/16 22:45 Ondansetron HCl 8 mg/Dextrose 54 ml @ 216 mls/hr Q6H PRN IV 10/21/16 07:15 Propofol 100 ml @ 0 mls/hr TITRATE IV 10/21/16 10:00 10/22/16 23:48 (NS 1000 ml Inj) 1,000 ml @ 75 mls/hr [id number] IV 10/21/16 13:00 10/25/16 20:18 (Tylenol) 325 mg Q4H PRN PO 10/21/16 12:45 10/24/16 09:40 (Albumin 5% Inj) 25 gm Q12H IV 10/21/16 14:00 10/28/16 04:32 (Versed Inj) 2 mg Q2H PRN IV PUSH 10/21/16 14:45 (Corgard) 20 mg DAILY PO 10/25/16 09:00 10/28/16 09:12 (Norvasc) 10 mg DAILY PO 10/26/16 09:00 10/28/16 09:12 (Roxicodone) 10 mg Q4H PRN PO 10/26/16 05:45 10/28/16 13:08 (Protonix) 40 mg Q12HR PO 10/26/16 21:00 10/28/16 09:11 (KCl) 20 meq BID@08,20 PO 10/27/16 20:00 10/28/16 09:11 Assessment and Plan Problem List: (1) Hyperammonemia Status: Acute Plan: Improved to 53 10/26. Recheck in a.m. (2) Hematemesis Status: Acute Plan: No recurrence overnight. (3) Hypertension Status: Chronic Plan: Stable on current medications. (4) Esophageal varices in cirrhosis Status: Resolved Plan: No banding required. GI following. (5) GI bleed Status: Resolved Plan: Resolved after IV protonix and sandostatin. (6) Electrolyte abnormality Status: Acute Plan: Remains hypokalemic on replacement therapy, on PO replacement protocol. (7) DVT (deep venous thrombosis) Status: Acute Plan: US positive for occlusive DVT in RUE. D/W Dr. Archer as pt. is at high risk for bleeding d/t recent GI bleed/esophageal varices. Hematology consulted requested for opinion on anticoagulation. Assessment and Plan D/W pt., RN, Dr. Archer, Dr. Hearn. Problem Qualifiers (1) Hypertension: Qualified Code: I10 - Essential hypertension (2) GI bleed: Qualified Code: K92.2 - Gastrointestinal hemorrhage, unspecified gastrointestinal hemorrhage type (3) DVT (deep venous thrombosis): Qualified Code: I82.621 - Acute deep vein thrombosis (DVT) of right upper extremity, unspecified vein Cathie Aguirre Oct 28, 2016 14:11
[2016-10-28] MEDS: ACETAMINOPHEN/HYDROcodone 325 MG/5 MG TAB PO PRN (21:58)
[2016-10-29] VITALS (10 sets, daily range): BP systolic 122–169; BP diastolic 58–79; PULSE 61–76; RESP 17–18; TEMP 96.7–97.8; O2SAT 90–96
[2016-10-29] MEDS: ACETAMINOPHEN/HYDROcodone 325 MG/5 MG TAB PO PRN ×6 (01:57→23:29)
[2016-10-29] MEDS: ALBUMIN HUMAN 5% 25 GM/500 ML BOTTLE IV SCH ×2 (01:58→16:03)
[2016-10-29] MEDS: RESP: ALBUTEROL 2.5 MG/IPRATROPIUM 0.5 MG NEB (SCH) NEB ×4 (03:03→20:53)
[2016-10-29] MEDS: SODIUM CHLOR 0.9% 1000 ML INJ 1,000 ML IV SCH ×2 (04:18→17:38)
[2016-10-29] MEDS: POTASSIUM CHLORIDE 20 MEQ CONTROLLED RELEASE TAB PO SCH ×2 (08:56→19:29)
[2016-10-29] MEDS: PANTOPRAZOLE SOD 40 MG DELAYED RELEASE TAB PO SCH ×2 (08:56→19:29)
[2016-10-29] MEDS: NADOLOL 20 MG TAB PO SCH (08:56)
[2016-10-29] MEDS: SODIUM CHLORIDE 0.9% FLUSH 5 ML FLUSH FLUSH SCH ×2 (08:56→19:31)
[2016-10-29] MEDS: SPIRONOLACTONE 25 MG TAB PO SCH (08:56)
--- NOTE | 2016-10-29 09:56 | MB ---
cc: MARILEE HEARN D.O., ABDUL J. M.D. DATE OF CONSULTATION: 10/28/2016 REASON FOR CONSULTATION Consult requested by Dr. Hearn for evaluation of right upper extremity DVT. HISTORY OF PRESENT ILLNESS Yves is a 60-year-old male. He used to live in [place] and has recently moved to [place]. He has a history of alcoholism and has developed alcoholic cirrhosis with esophageal varices. He has a history of GI bleeding in the past. The patient came to the emergency room after he noticed blood on his shirt. He states that he vomited blood. He was admitted to the hospital for GI bleeding. His hemoglobin was found to be low at 7 and had received blood transfusion. GI has been consulted. A CVP line in the right IJ was placed in upon admission. The patient was found to have swelling of the right upper extremity and Doppler ultrasound was done yesterday which showed occlusive DVT of the right upper extremity. I have been asked to see the patient for further evaluation. REVIEW OF SYSTEMS The patient denies any previous history of DVT. He denies any family history of thromboembolic disease either. He denies any nausea, vomiting or diarrhea. He does not have any more GI bleeding. He is tolerating a regular diet well. The rest of the review of systems is negative. PAST MEDICAL HISTORY 1. Hypertension. 2. Alcoholic cirrhosis with history of GI bleeding. PAST SURGICAL HISTORY 1. Tonsillectomy. 2. Upper endoscopy with esophageal variceal banding. ALLERGIES None. MEDICATIONS 1. Potassium. 2. Aldactone. 3. Nadolol. 4. Amlodipine. 5. DuoNeb nebulizer. 6. Protonix. FAMILY HISTORY Noncontributory. SOCIAL HISTORY The patient smokes cigarettes and drinks alcohol. PHYSICAL EXAMINATION GENERAL: A well-developed, well-nourished male in no apparent distress. VITAL SIGNS: Temperature 98.1, heart rate 62, blood pressure 126/60. HEENT: PERRLA. EOMI. Anicteric. No oral lesions noted. NECK: Supple. LYMPHATIC: There is no cervical, supraclavicular or axillary lymphadenopathy noted. LUNGS: Clear. No wheezing, rhonchi or rales. HEART: Regular rate and rhythm. ABDOMEN: Soft, nontender. EXTREMITIES: Right upper extremity edema noted. NEUROLOGIC: Awake, alert, oriented x3. SKIN: No significant lesions are noted. LABORATORY DATA CBC showed white count of 4.8, hemoglobin 9.2, hematocrit 28.1, platelet count 66. ASSESSMENT 1. Provoked right upper extremity DVT, most likely due to CVP line in the right internal jugular vein. 2. Cirrhosis of the liver with esophageal varices and GI bleeding. 3. Alcoholism. 4. Thrombocytopenia, most likely due to hypersplenism from cirrhosis of the liver. PLAN I have reviewed his available records and I have discussed with the patient regarding the thrombosis of the right upper extremity. This is a provoked DVT due to the CVP line in the right IJ. I have recommended to remove the CVP line if it is okay with Dr. Hearn. I have placed an order for the nurse to contact Dr. Hearn to get clearance to remove the CVP line. If Dr. Hearn agrees then we will place a peripheral line first before removing the CVP line. I will also consult the interventional radiologist to evaluate for catheter-directed thrombolysis of the occlusive right upper extremity DVT since he is not a good candidate for anticoagulation due to cirrhosis of the liver and severe thrombocytopenia with a platelet count that ranges between 50 and 70. Further recommendations to follow. Thank you for asking my opinion. MD DM Gtz/LAYLA /10:30 PM /9:38 AM
[2016-10-29 10:25] LABS: AUTOMATED NEUTROPHIL # 1.9 TH/MM3 (1.8-7.7); EOSINOPHIL # 0.1 TH/MM3 (0-0.4); EOSINOPHIL % 1.8 % (0.0-4.0); HEMATOCRIT 30.2 % (39.0-51.0); HEMO FLAGS DIFF FINAL; LYMPHOCYTE # 0.8 TH/MM3 (1.0-4.8); MEAN CELL VOLUME 87.6 FL (80.0-100.0); MEAN CORPUSCULAR HEMOGLOBIN 28.4 PG (27.0-34.0); MEAN CORPUSCULAR HGB CONC 32.4 % (32.0-36.0); MONO % 16.4 % (0.0-8.0); NEUT % 56.8 % (16.0-70.0); PLATELET COUNT 110 TH/MM3 (150-450); RED BLOOD COUNT 3.45 MIL/MM3 (4.50-5.90); RED CELL DISTRIBUTION WIDTH 17.7 % (11.6-17.2); WHITE BLOOD COUNT 3.4 TH/MM3 (4.0-11.0)
[2016-10-29 10:30] LABS: APTT (PATIENT) 37.5 SEC (24.3-30.1); INTERNATIONAL NORMALIZED RATIO 1.5 RATIO; PROTHROMBIN TIME - PATIENT 17.1 SEC (9.8-11.6)
--- NOTE | 2016-10-29 11:38 | PD.ONC.PN ---
Subjective Subjective Remarks Afebrile overnight. Patient resting comfortably. Denies bleeding. Denies pain. Objective Data Date Time Temp Pulse Resp B/P Pulse Ox O2 Delivery O2 Flow Rate FiO2 10/29/16 08:05 95 Nasal Cannula 3.00 10/29/16 08:00 97.8 63 18 126/59 96 10/29/16 03:46 97.3 61 17 145/63 96 10/29/16 00:30 142/67 10/29/16 00:00 97.6 71 17 169/79 96 10/28/16 20:55 95 Nasal Cannula 2.00 10/28/16 20:00 56 10/28/16 20:00 98.1 62 17 126/60 95 10/28/16 16:00 97.8 71 20 121/67 95 10/28/16 12:28 98.0 57 20 110/56 94 10/29/16 10/29/16 10/29/16 07:00 15:00 23:00 Output Total 400 ml Balance -400 ml Result Diagram: 10/29/16 1001 10/28/16 0805 Laboratory Results Laboratory Tests Test 10/29/16 10:01 White Blood Count 3.4 TH/MM3 Red Blood Count 3.45 MIL/MM3 Hemoglobin 9.8 GM/DL Hematocrit 30.2 % Mean Corpuscular Volume 87.6 FL Mean Corpuscular Hemoglobin 28.4 PG Mean Corpuscular Hemoglobin 32.4 % Concent Red Cell Distribution Width 17.7 % Platelet Count 110 TH/MM3 Mean Platelet Volume 8.5 FL Neutrophils (%) (Auto) 56.8 % Lymphocytes (%) (Auto) 24.0 % Monocytes (%) (Auto) 16.4 % Eosinophils (%) (Auto) 1.8 % Basophils (%) (Auto) 1.0 % Neutrophils # (Auto) 1.9 TH/MM3 Lymphocytes # (Auto) 0.8 TH/MM3 Monocytes # (Auto) 0.6 TH/MM3 Eosinophils # (Auto) 0.1 TH/MM3 Basophils # (Auto) 0.0 TH/MM3 CBC Comment DIFF FINAL Differential Comment Prothrombin Time 17.1 SEC Prothromb Time International 1.5 RATIO Ratio Activated Partial 37.5 SEC Thromboplast Time Administered Medications Medications (Trade) Dose Ordered Sig/Felix Route PRN Reason Start Time Stop Time Status Last Admin Dose Admin Spironolactone (Aldactone) 25 mg DAILY PO 10/20/16 09:00 10/29/16 08:56 IV Flush 2 ml 2 ml BID FLUSH 10/20/16 09:00 10/29/16 08:56 Propofol 100 ml @ 0 mls/hr TITRATE IV 10/21/16 10:00 10/22/16 23:48 Sodium Chloride (NS 1000 ml Inj) 1,000 ml @ 75 mls/hr [id number] IV 10/21/16 13:00 10/25/16 20:18 Acetaminophen (Tylenol) 325 mg Q4H PRN PO INCREASED TEMPERATURE 10/21/16 12:45 10/24/16 09:40 Albumin Human (Albumin 5% Inj) 25 gm Q12H IV 10/21/16 14:00 10/29/16 01:58 Nadolol (Corgard) 20 mg DAILY PO 10/25/16 09:00 10/29/16 08:56 Amlodipine Besylate (Norvasc) 10 mg DAILY PO 10/26/16 09:00 10/29/16 08:55 Pantoprazole Sodium (Protonix) 40 mg Q12HR PO 10/26/16 21:00 10/29/16 08:56 Potassium Chloride (KCl) 20 meq BID@08,20 PO 10/27/16 20:00 10/29/16 08:56 Acetaminophen/ Hydrocodone Bitart ([place] 5-325 Mg) 1 tab Q4H PRN PO PAIN GREATER THAN 5 10/28/16 15:00 10/29/16 10:30 Objective Remarks GENERAL: Middle aged male, sitting up in bed in [facility]. SKIN: Warm and dry. HEAD: Normocephalic. EYES: No injection or drainage. NECK: Supple, trachea midline. CARDIOVASCULAR: Regular rate and rhythm RESPIRATORY: Breath sounds equal bilaterally. No accessory muscle use. GASTROINTESTINAL: Abdomen soft, non-tender, nondistended. EXTREMITIES: No cyanosis NEUROLOGICAL: No obvious focal deficit. Awake, alert, and oriented x3. Assessment/Plan Problem List: (1) DVT (deep venous thrombosis) Status: Acute Plan: 10/29/16: central line removed, peripheral line placed. waiting on evaluation by invasive radiology for possible catheter directed thrombolysis of the DVT --Provoked right upper extremity DVT, --most likely due to CVP line in the right internal jugular vein. --not a candidate for anti-coagulation due to GIB (2) GI bleed Status: Resolved Assessment 60y/o male with right upper extremity DVT vs h/o GIB. h/o Hypertension. Alcoholic cirrhosis with history of GI bleeding. Tonsillectomy. Upper endoscopy with esophageal variceal banding. Attending Statement c/oswelling RUE CVPline has been removed. Not a candidate for anticoagulation due to low plat and cirrhosis with varies. await IR input The exam, history, and the medical decision-making described in the above note were completed with the assistance of the mid-level provider. I reviewed and agree with the findings presented. I attest that I had a [id number] encounter with the patient on the same day, and personally performed and documented my assessment and findings in the medical record. Problem Qualifiers (1) DVT (deep venous thrombosis): Qualified Code: I82.621 - Acute deep vein thrombosis (DVT) of right upper extremity, unspecified vein (2) GI bleed: Qualified Code: K92.2 - Gastrointestinal hemorrhage, unspecified gastrointestinal hemorrhage type Jennifer Henry Oct 29, 2016 11:38 Patricia Bravo MD Oct 29, 2016 22:16
--- NOTE | 2016-10-29 12:38 | HHI.PR ---
Subjective Remarks Feels ok. Objective Vital Signs Date Time Temp Pulse Resp B/P Pulse Ox O2 Delivery O2 Flow Rate FiO2 10/29/16 08:05 95 Nasal Cannula 3.00 10/29/16 08:00 97.8 63 18 126/59 96 10/29/16 03:46 97.3 61 17 145/63 96 10/29/16 00:30 142/67 10/29/16 00:00 97.6 71 17 169/79 96 10/28/16 20:55 95 Nasal Cannula 2.00 10/28/16 20:00 56 10/28/16 20:00 98.1 62 17 126/60 95 10/28/16 16:00 97.8 71 20 121/67 95 I/O 10/28/16 10/28/16 10/28/16 10/29/16 10/29/16 10/29/16 07:00 15:00 23:00 07:00 15:00 23:00 Intake Total 600 ml 360 ml Output Total 750 ml 400 ml 400 ml Balance -150 ml -40 ml -400 ml Intake Oral 600 ml 360 ml Output Urine Total 750 ml 400 ml 400 ml # Voids 2 1 # Bowel Movements 0 Result Diagram: 10/29/16 1001 10/28/16 0805 Procedures Last 72 hours Impressions Chest X-Ray 10/19/16 0000 Signed Impressions: Service Date/Time: Wednesday, October 19, 2016 21:41 - CONCLUSION: Negative for an acute process. Rene Duke MD FACR Objective Remarks GENERAL: Well-nourished, well-developed patient. SKIN: Warm and dry. HEAD: Normocephalic. EYES: No scleral icterus. No injection or drainage. NECK: Supple, trachea midline. No JVD or lymphadenopathy. CARDIOVASCULAR: Regular rate and rhythm without murmurs, gallops, or rubs. RESPIRATORY: Breath sounds equal bilaterally. No accessory muscle use. GASTROINTESTINAL: Abdomen soft, non-tender, nondistended. EXTREMITIES: Generalized edema, worse in RUE. NEUROLOGICAL: Awake, alert, and oriented x 3. Non-focal. Medications and IVs Current Medications Medications (Trade) Dose Ordered Sig/Felix Route Start Time Stop Time Status Last Admin (Aldactone) 25 mg DAILY PO 10/20/16 09:00 10/29/16 08:56 (NS Flush) 2 ml UNSCH PRN FLUSH 10/19/16 22:45 (NS Flush) 2 ml BID FLUSH 10/20/16 09:00 10/29/16 08:56 Naloxone HCl 0.4 mg 0.4 mg UNSCH PRN IV 10/19/16 22:45 Ondansetron HCl 8 mg/Dextrose 54 ml @ 216 mls/hr Q6H PRN IV 10/21/16 07:15 Propofol 100 ml @ 0 mls/hr TITRATE IV 10/21/16 10:00 10/22/16 23:48 (NS 1000 ml Inj) 1,000 ml @ 75 mls/hr [id number] IV 10/21/16 13:00 10/25/16 20:18 (Tylenol) 325 mg Q4H PRN PO 10/21/16 12:45 10/24/16 09:40 (Albumin 5% Inj) 25 gm Q12H IV 10/21/16 14:00 10/29/16 01:58 (Corgard) 20 mg DAILY PO 10/25/16 09:00 10/29/16 08:56 (Norvasc) 10 mg DAILY PO 10/26/16 09:00 10/29/16 08:55 (Protonix) 40 mg Q12HR PO 10/26/16 21:00 10/29/16 08:56 (KCl) 20 meq BID@08,20 PO 10/27/16 20:00 10/29/16 08:56 ([place] 5-325 Mg) 1 tab Q4H PRN PO 10/28/16 15:00 10/29/16 10:30 Assessment and Plan Problem List: (1) Hyperammonemia Status: Acute Plan: Improved to 53 10/26. Recheck in a.m. (2) Hematemesis Status: Acute Plan: No recurrence overnight. (3) Hypertension Status: Chronic Plan: Stable on current medications. (4) Esophageal varices in cirrhosis Status: Resolved Plan: No banding required. GI following. (5) GI bleed Status: Resolved Plan: Resolved after IV protonix and sandostatin. (6) Electrolyte abnormality Status: Acute Plan: Remains hypokalemic on replacement therapy, on PO replacement protocol. (7) DVT (deep venous thrombosis) Status: Acute Plan: US positive for occlusive DVT in RUE. Hematology following, no anticoag recommended d/t GIB and thrombocytopenia. Pending IR evaluation for thrombectomy of RUE DVT. Assessment and Plan D/W pt., RN, Dr. Archer, Dr. Hearn. Problem Qualifiers (1) Hypertension: Qualified Code: I10 - Essential hypertension (2) GI bleed: Qualified Code: K92.2 - Gastrointestinal hemorrhage, unspecified gastrointestinal hemorrhage type (3) DVT (deep venous thrombosis): Qualified Code: I82.621 - Acute deep vein thrombosis (DVT) of right upper extremity, unspecified vein Cathie Aguirre Oct 29, 2016 12:38
[2016-10-30] VITALS: BP 157/72; PULSE 64; RESP 16; TEMP 98; O2SAT 95
[2016-10-30] MEDS: ALBUMIN HUMAN 5% 25 GM/500 ML BOTTLE IV SCH ×2 (03:10→14:00)
[2016-10-30] MEDS: ACETAMINOPHEN/HYDROcodone 325 MG/5 MG TAB PO PRN ×4 (03:41→15:55)
[2016-10-30] MEDS: RESP: ALBUTEROL 2.5 MG/IPRATROPIUM 0.5 MG NEB (SCH) NEB ×3 (03:56→16:00)
[2016-10-30 03:59] VITALS: BP 112/72; PULSE 72; RESP 17; TEMP 97.2; O2SAT 93
[2016-10-30 04:05] VITALS: BP 120/59; PULSE 66; RESP 17; TEMP 97; O2SAT 95
[2016-10-30] MEDS: SODIUM CHLOR 0.9% 1000 ML INJ 1,000 ML IV SCH (04:06)
[2016-10-30 08:00] VITALS: BP 138/67; PULSE 68; RESP 18; TEMP 97.2; O2SAT 95
[2016-10-30] MEDS: NADOLOL 20 MG TAB PO SCH (09:38)
[2016-10-30] MEDS: SPIRONOLACTONE 25 MG TAB PO SCH (09:39)
[2016-10-30] MEDS: SODIUM CHLORIDE 0.9% FLUSH 5 ML FLUSH FLUSH SCH (09:39)
[2016-10-30] MEDS: POTASSIUM CHLORIDE 20 MEQ CONTROLLED RELEASE TAB PO SCH (09:39)
[2016-10-30] MEDS: PANTOPRAZOLE SOD 40 MG DELAYED RELEASE TAB PO SCH (09:39)
[2016-10-30] MEDS ORDERED: AMLO10 PO (10:01)
[2016-10-30] MEDS ORDERED: NADO1TAB16 PO (10:01)
--- NOTE | 2016-10-30 10:04 | HHI.DS ---
Discharge Summary Admission Date Oct 19, 2016 at 22:13 Admitting Diagnosis GI Bleed, h/o esophageal varices; elevated ammonia; alcohol use Procedures Last 72 hours Impressions Chest X-Ray 10/19/16 0000 Signed Impressions: Service Date/Time: Wednesday, October 19, 2016 21:41 - CONCLUSION: Negative for an acute process. Rene Duke MD FACR Brief History Admitted with GIB, esophageal varices. CBC/BMP: 10/29/16 1001 10/28/16 0805 Significant Findings Laboratory Tests Test 10/27/16 10/27/16 10/28/16 10/29/16 12:45 13:15 08:05 10:01 Urine Color ORANGE (YELLW/STRAW) Urine Occult Blood SMALL (NEG) Urine RBC 8 /hpf (0-3) Urine Mucus MANY /lpf (OCC) Potassium Level 3.3 MEQ/L 3.2 MEQ/L (3.5-5.1) (3.5-5.1) Creatinine 0.47 MG/DL 0.53 MG/DL (0.60-1.30) (0.60-1.30) White Blood Count 3.4 TH/MM3 (4.0-11.0) Red Blood Count 3.45 MIL/MM3 (4.50-5.90) Hemoglobin 9.8 GM/DL (13.0-17.0) Hematocrit 30.2 % (39.0-51.0) Red Cell Distribution Width 17.7 % (11.6-17.2) Platelet Count 110 TH/MM3 (150-450) Monocytes (%) (Auto) 16.4 % (0.0-8.0) Lymphocytes # (Auto) 0.8 TH/MM3 (1.0-4.8) Prothrombin Time 17.1 SEC (9.8-11.6) Activated Partial 37.5 SEC Thromboplast Time (24.3-30.1) PE at Discharge GENERAL: Well-nourished, well-developed patient. SKIN: Warm and dry. HEAD: Normocephalic. EYES: No scleral icterus. No injection or drainage. NECK: Supple, trachea midline. No JVD or lymphadenopathy. CARDIOVASCULAR: Regular rate and rhythm without murmurs, gallops, or rubs. RESPIRATORY: Breath sounds equal bilaterally. No accessory muscle use. GASTROINTESTINAL: Abdomen soft, non-tender, nondistended. EXTREMITIES: Generalized edema, worse in RUE. NEUROLOGICAL: Awake, alert, and oriented x 3. Non-focal. Hospital Course Admitted with GIB, esophageal varices. He underwent evaluation by GI and was stabilized. No further bleeding occurred. He was found to have a DVT in the right arm after placement of a RIJ central line and was evaluated by hematology. IR declined a thrombectomy. On 10/30 he was deemed stable for discharge and discharged home in stable improved condition with outpatient f/u with Dr. Hearn. Cathie Aguirre Oct 30, 2016 10:04
[2016-10-30 12:00] VITALS: BP 136/83; PULSE 62; RESP 19; TEMP 96.7; O2SAT 95
[2016-10-30 12:37] VITALS: PULSE 64
--- NOTE | 2016-10-30 13:42 | PD.ONC.PN ---
Subjective Subjective Remarks Afebrile overnight. Patient is asking when he is going home. He states the swelling in his right upper extremity is much improved. He has no other complaints. Objective Data Date Time Temp Pulse Resp B/P Pulse Ox O2 Delivery O2 Flow Rate FiO2 10/30/16 12:37 64 10/30/16 12:00 96.7 62 19 136/83 95 10/30/16 08:00 97.2 68 18 138/67 95 10/30/16 04:05 97.0 66 17 120/59 95 10/30/16 00:00 98.0 64 16 157/72 95 10/29/16 20:54 90 Nasal Cannula 3.00 10/29/16 20:05 70 10/29/16 20:00 97.6 76 17 135/63 95 10/29/16 15:57 97.2 66 18 122/58 95 10/30/16 10/30/16 10/30/16 07:00 15:00 23:00 Intake Total 240 ml Output Total 800 ml Balance -560 ml Result Diagram: 10/29/16 1001 10/28/16 0805 Laboratory Results Laboratory Tests Test 10/30/16 09:07 Ammonia 42 MCMOL/L Administered Medications Medications (Trade) Dose Ordered Sig/Felix Route PRN Reason Start Time Stop Time Status Last Admin Dose Admin Spironolactone (Aldactone) 25 mg DAILY PO 10/20/16 09:00 10/30/16 09:39 IV Flush 2 ml 2 ml BID FLUSH 10/20/16 09:00 10/30/16 09:39 Propofol 100 ml @ 0 mls/hr TITRATE IV 10/21/16 10:00 10/22/16 23:48 Sodium Chloride (NS 1000 ml Inj) 1,000 ml @ 75 mls/hr [id number] IV 10/21/16 13:00 10/25/16 20:18 Acetaminophen (Tylenol) 325 mg Q4H PRN PO INCREASED TEMPERATURE 10/21/16 12:45 10/24/16 09:40 Albumin Human (Albumin 5% Inj) 25 gm Q12H IV 10/21/16 14:00 10/30/16 03:10 Nadolol (Corgard) 20 mg DAILY PO 10/25/16 09:00 10/30/16 09:38 Amlodipine Besylate (Norvasc) 10 mg DAILY PO 10/26/16 09:00 10/30/16 09:38 Pantoprazole Sodium (Protonix) 40 mg Q12HR PO 10/26/16 21:00 10/30/16 09:39 Potassium Chloride (KCl) 20 meq BID@08,20 PO 10/27/16 20:00 10/30/16 09:39 Acetaminophen/ Hydrocodone Bitart ([place] 5-325 Mg) 1 tab Q4H PRN PO PAIN GREATER THAN 5 10/28/16 15:00 10/30/16 11:41 Objective Remarks GENERAL: Middle aged male, lying in bed in no distress. SKIN: Warm and dry. HEAD: Normocephalic. EYES: No injection or drainage. NECK: Supple, trachea midline. CARDIOVASCULAR: +S1/S2. No murmur appreciated. RESPIRATORY: Breath sounds equal bilaterally. No accessory muscle use. GASTROINTESTINAL: Abdomen soft, non-tender, nondistended. EXTREMITIES: No cyanosis NEUROLOGICAL: No obvious focal deficit. Awake, alert, and oriented x3. Assessment/Plan Problem List: (1) DVT (deep venous thrombosis) Status: Acute Plan: 10/30/16: Swelling much improved; pt not a candidate for clot thrombolysis. 10/29/16: central line removed, peripheral line placed. waiting on evaluation by invasive radiology for possible catheter directed thrombolysis of the DVT --Provoked right upper extremity DVT, --most likely due to CVP line in the right internal jugular vein. --not a candidate for anti-coagulation due to GIB (2) GI bleed Status: Resolved Assessment 60y/o male with right upper extremity DVT vs h/o GIB. h/o Hypertension. Alcoholic cirrhosis with history of GI bleeding. Tonsillectomy. Upper endoscopy with esophageal variceal banding. Attending Statement less RUE swelling since CVP line removed. D/W DR Conde , not a candidate for thrombolysis. Not a candidate for anticoagulation due to severe thrombocytopenia and cirrhosis with variceal bleeding. OK to d/c FU with PMD sign off. The exam, history, and the medical decision-making described in the above note were completed with the assistance of the mid-level provider. I reviewed and agree with the findings presented. I attest that I had a [id number] encounter with the patient on the same day, and personally performed and documented my assessment and findings in the medical record. Problem Qualifiers (1) DVT (deep venous thrombosis): Qualified Code: I82.621 - Acute deep vein thrombosis (DVT) of right upper extremity, unspecified vein (2) GI bleed: Qualified Code: K92.2 - Gastrointestinal hemorrhage, unspecified gastrointestinal hemorrhage type Tyra Hope Oct 30, 2016 13:42 Patricia Bravo MD Oct 30, 2016 18:05
--- NOTE | 2016-11-17 15:21 | HHI.DS ---
Discharge Summary Admission Date Oct 19, 2016 at 22:13 Admitting Diagnosis GI Bleed, h/o esophageal varices; elevated ammonia; alcohol use (1) Esophageal varices in cirrhosis Diagnosis: Secondary (2) GI bleed Diagnosis: Principal (3) DVT (deep venous thrombosis) Diagnosis: Secondary (4) Hyperammonemia Diagnosis: Secondary (5) Cirrhosis Diagnosis: Secondary (6) Hypertension Diagnosis: Secondary Procedures Last 72 hours Impressions Chest X-Ray 10/19/16 0000 Signed Impressions: Service Date/Time: Wednesday, October 19, 2016 21:41 - CONCLUSION: Negative for an acute process. Rene Duke MD FACR Brief History Admitted with GIB, esophageal varices. Significant Findings GIB thought to be related to severe portal hypertension. DVT in R arm s/p line placement. Imaging Last Impressions Upper Extremity Ultrasound 10/27/16 0000 Signed Impressions: Service Date/Time: Thursday, October 27, 2016 21:08 - CONCLUSION: Occlusive DVT is noted in the right upper extremity. Patric Pineda MD Chest X-Ray 10/24/16 0400 Signed Impressions: Service Date/Time: October 03:08 - CONCLUSION: Some interval worsening aeration, likely significant layering effusions Vito Lara MD Abdomen/Pelvis CT 10/22/16 0000 Signed Impressions: Service Date/Time: Saturday, October 22, 2016 10:54 - CONCLUSION: 1. Cirrhotic liver with varices especially around the distal esophagus. 2. Splenomegaly. This is likely related to the portal hypertension. 3. Mild amount of ascites in the right pericolic gutter region likely from the hepatic disease. 4. Increased density at the bases representing some degree of atelectasis or consolidation being worse on the right. There is also a minimal right pleural effusion. 5. Marques catheter in place. 6. Mild thickening of the distal sigmoid colon. This is nonspecific. This could be secondary to lack of distention. Significant surrounding inflammatory change is not seen. Vito Up MD GI Bleed Scan Nuclear Medicine 10/21/16 0000 Signed Impressions: Service Date/Time: Friday, October 21, 2016 16:13 - CONCLUSION: There is an apparent small bowel source of bleeding. Vito Slaughter MD PE at Discharge GENERAL: Well-nourished, well-developed patient. SKIN: Warm and dry. HEAD: Normocephalic. EYES: No scleral icterus. No injection or drainage. NECK: Supple, trachea midline. No JVD or lymphadenopathy. CARDIOVASCULAR: Regular rate and rhythm without murmurs, gallops, or rubs. RESPIRATORY: Breath sounds equal bilaterally. No accessory muscle use. GASTROINTESTINAL: Abdomen soft, non-tender, nondistended. EXTREMITIES: Generalized edema, worse in RUE. NEUROLOGICAL: Awake, alert, and oriented x 3. Non-focal. Hospital Course Admitted with an episode of hematemesis/GI bleed, he was evaluated by [facility]. He was intubated for airway protection d/t esophageal varices as well as respiratory insufficiency. He required blood transfusions for a hemoglobin of 7. He was found to have pneumonia and treated with antibiotics. He was stabilized and underwent endoscopic GI evaluation revealing non-bleeding varices. He was subsequently extubated and observed for further respiratory compromise or bleeding. He developed a DVT, thought to be provoked by Central line placement, IR declined thrombectomy. On 10/30 he was deemed stable for discharge and discharged home with outpatient followup. Discharge Disposition: Discharge Home Discharge Instructions DIET: Follow Instructions for: Heart Healthy Diet Speech Therapy-Diet Recommenda: Regular Activities you can perform: Regular-No Restrictions New Medications: Amlodipine (Norvasc) 10 Mg Tab 10 MG PO DAILY Blood Pressure Management Days 30 TAB Nadolol (Corgard) 20 Mg Tab 20 MG PO DAILY Blood Pressure Management #30 TAB Continued Medications: Oxycodone ER (Oxycodone ER) 40 Mg Tab 40 MG PO Q12HR Pain Management Ref 0 TAB Spironolactone (Spironolactone) 25 Mg Tab 25 MG PO DAILY #30 Ref 0 TAB Discontinued Medications: Propranolol ER 24 HR (Propranolol ER 24 HR) 60 Mg Cap 60 MG PO DAILY #30 Ref 0 CAP Cathie Aguirre Nov 17, 2016 15:21
== END 2016-10-30 17:07 | disposition home or self-care (01) | DRG 377 ==
LOC: PHED 19:42 → PHEDA 22:13 → N06B 10-20 03:06 → N03A 10-21 06:58 → N05A 10-25 15:57
PROVIDERS: ADMIT Family Medicine; ATTEND Family Medicine
PROC: 3E0F7GC Introduction of Other Therapeutic Substance into Respiratory Tract, Via Natural or Artificial Opening (ICD-10-PCS; 2016-10-19)
PROC: 30233N1 Transfusion of Nonautologous Red Blood Cells into Peripheral Vein, Percutaneous Approach (ICD-10-PCS; 2016-10-21)
PROC: 0DJ08ZZ Inspection of Upper Intestinal Tract, Via Natural or Artificial Opening Endoscopic (ICD-10-PCS; 2016-10-21)
PROC: 5A1945Z Respiratory Ventilation, 24-96 Consecutive Hours (ICD-10-PCS; 2016-10-21)
PROC: 0BH17EZ Insertion of Endotracheal Airway into Trachea, Via Natural or Artificial Opening (ICD-10-PCS; 2016-10-21)
PROC: 30233K1 Transfusion of Nonautologous Frozen Plasma into Peripheral Vein, Percutaneous Approach (ICD-10-PCS; principal; 2016-10-21 08:45)
DX: K92.2 Gastrointestinal hemorrhage, unspecified (principal); J96.90 Respiratory failure, unspecified, unspecified whether with hypoxia or hypercapnia; D68.4 Acquired coagulation factor deficiency; J18.9 Pneumonia, unspecified organism; I82.621 Acute embolism and thrombosis of deep veins of right upper extremity; K76.6 Portal hypertension; D69.59 Other secondary thrombocytopenia; D62 Acute posthemorrhagic anemia; K92.0 Hematemesis; K70.31 Alcoholic cirrhosis of liver with ascites; I85.10 Secondary esophageal varices without bleeding; J44.9 Chronic obstructive pulmonary disease, unspecified; K31.89 Other diseases of stomach and duodenum; I10 Essential (primary) hypertension; H91.90 Unspecified hearing loss, unspecified ear; F17.210 Nicotine dependence, cigarettes, uncomplicated; G89.29 Other chronic pain; M54.5 Low back pain; M19.90 Unspecified osteoarthritis, unspecified site; K21.9 Gastro-esophageal reflux disease without esophagitis; Z82.49 Family history of ischemic heart disease and other diseases of the circulatory system; F10.20 Alcohol dependence, uncomplicated; D73.1 Hypersplenism; Q43.0 Meckel's diverticulum (displaced) (hypertrophic); K72.90 Hepatic failure, unspecified without coma; E87.6 Hypokalemia
CPT/HCPCS: 31500; 36430; 36556; 36600; 71010; 74177; 76937; 78278; 80048; 80053; 80307; 80320; 81001; 82140; 82805; 83690; 83735; 84100; 84132; 85007; 85014; 85018; 85025; 85027; 85610; 85730; 86850; 86900; 86901; 86920; 86927; 87040; 87086; 93971; 94002; 94003; 94640; 94664; 96374; 96375; A9560; C9113; J0171; J0330; J0461; J0696; J1642; J1940; J2250; J2354; J2405; J2543; J3370; J3411; J3430; J3475; J3480; J7030; J7040; J7050; P9016; P9017; P9045; Q9963; Q9967